=== PATIENT | female | born 1970 | race Caucasian/White ===

== ENCOUNTER 2017-09-18 22:15 | Observation (INO) | payer MEDICARE ==
[~2017-09-18] VITALS: Ht 175.3 cm; Wt 95.1 kg
[~2017-09-18 22:15] MED LIST: ACET325 PO; ALBU90OI INH; ALBUTEROL INH; Amlodipine Bes2.5 MG PO; Benicar5 MG PO; CIPR500 PO; CLON.5 PO; Hydrocodone-Ap1 EA23 PO; IRON PO; LEVFLO250 PO; LOSHYD PO; METPHE5 PO; MIDO2.5 PO; MULVIT PO; MULVITMIND PO; ONDA4 PO; Percocet 5-3251 EACH PO; Prinivil10 MG PO; SODBIC650 PO; TRAM50 PO; [UNRECOGNIZED DRUG - OTHER]
[2017-09-18 22:39] LABS: Source, Urine Clean Catch
[2017-09-18 22:42] LABS: Blood, Urine 4+ (Neg); Glucose Qualitative, Urine Neg (Neg); Ketones, Urine Neg (Neg); Leukocyte Esterase, Urine 3+ (Neg); Nitrite, Urine Pos (Neg); Protein, Urine 3+ (Neg); Specific Gravity, Urine 1.015 (1.003-1.022); Urobilinogen, Urine 1+ (Normal)
[2017-09-18 22:44] LABS: Bilirubin, Urine 1+ (Neg)
[2017-09-18 22:45] LABS: Appearance, Urine Turbid (Clear); Color, Urine Yellow (P-Yellow)
[2017-09-18 22:53] LABS: BASOPHILS PERCENT AUTO 1 % (0-2); EOSINOPHILS ABSOLUTE AUTO 0.03 K/mm3 (0.00-0.68); EOSINOPHILS PERCENT AUTO 0 % (0-6); Hematocrit 40.9 % (33.0-51.0); Hemoglobin 12.6 g/dL (11.5-16.0); IMMATURE GRAN ABSOLUTE AUTO 0.08 K/mm3 (0.00-0.10); IMMATURE GRAN PERCENT AUTO 1 % (0-1); LYMPHOCYTES PERCENT AUTO 8 % (21-46); MONOCYTES ABSOLUTE AUTO 0.33 K/mm3 (0.16-1.47); MONOCYTES PERCENT AUTO 4 % (4-13); Mean Corpuscular HGB 30.7 pg (26.0-34.0); Mean Corpuscular HGB Conc 30.8 g/dL (31.5-36.5); Mean Corpuscular Volume 100 fL (80-100); Mean Platelet Volume 9.2 fL (9.1-12.4); NEUTROPHILS PERCENT AUTO 86 % (41-73); Platelet Count 385 K/mm3 (150-400); RDW Coefficient Variation 14.9 % (11.7-14.2); RDW Standard Deviation 54.4 fL (35.1-46.3); Red Blood Cell Count 4.11 M/mm3 (3.80-5.20); White Blood Cell Count 9.04 K/mm3 (4.00-11.30)
[2017-09-18 22:57] LABS: Amorphous Mod (0-Heavy); Bacteria Many /hpf; Red Blood Cells, Urine Rare /hpf (0-2); Squamous Epithelial Cells Not Seen /hpf (Few); White Blood Cells, Urine TNTC /hpf (0-5)
[2017-09-18 23:16] LABS: Alanine Aminotransfer (ALT/SGP 14 U/L (12-78); Albumin, Blood 3.7 g/dL (3.4-5.0); Albumin/Globulin Ratio 0.7 (0.8-1.8); Alk Phos 66 U/L (50-136); Anion Gap 13 mmol/L (6-16); Aspartate Aminotrans (AST/SGOT <3 U/L (12-37); Bilirubin, Total 0.5 mg/dL (0.1-1.0); Blood Urea Nitrogen 118 mg/dL (8-24); Bun/Creatinine Ratio 17.6 (12.0-20.0); CO2, Blood 15 mmol/L (21-32); Calcium, Blood 10.3 mg/dL (8.5-10.1); Chloride, Blood 111 mmol/L (98-108); Creatinine, Blood 6.69 mg/dL (0.40-1.00); Globulin, Blood 5.2 g/dL (2.2-4.0); Glomerular Filtration Rate 7 (60-); Glucose, Blood 118 mg/dL (70-99); Potassium, Blood 5.8 mmol/L (3.5-5.5); Sodium, Blood 139 mmol/L (136-145); Total Protein, Blood 8.9 g/dL (6.4-8.2)
[2017-09-18 23:42] LABS: Influenza A Negative (NEGATIVE); Influenza B Negative (NEGATIVE)
[2017-09-19 12:32] LABS: BASOPHILS ABSOLUTE AUTO 0.07 K/mm3 (0.00-0.23); BASOPHILS PERCENT AUTO 1 % (0-2); EOSINOPHILS ABSOLUTE AUTO 0.04 K/mm3 (0.00-0.68); EOSINOPHILS PERCENT AUTO 1 % (0-6); Hematocrit 35.2 % (33.0-51.0); Hemoglobin 11.3 g/dL (11.5-16.0); IMMATURE GRAN ABSOLUTE AUTO 0.11 K/mm3 (0.00-0.10); IMMATURE GRAN PERCENT AUTO 1 % (0-1); LYMPHOCYTES ABSOLUTE AUTO 0.95 K/mm3 (0.84-5.20); LYMPHOCYTES PERCENT AUTO 13 % (21-46); MONOCYTES ABSOLUTE AUTO 0.64 K/mm3 (0.16-1.47); MONOCYTES PERCENT AUTO 8 % (4-13); Mean Corpuscular HGB 30.8 pg (26.0-34.0); Mean Corpuscular HGB Conc 32.1 g/dL (31.5-36.5); Mean Platelet Volume 8.9 fL (9.1-12.4); NEUTROPHILS PERCENT AUTO 76 % (41-73); Platelet Count 335 K/mm3 (150-400); RDW Coefficient Variation 14.7 % (11.7-14.2); RDW Standard Deviation 51.5 fL (35.1-46.3); Red Blood Cell Count 3.67 M/mm3 (3.80-5.20); White Blood Cell Count 7.61 K/mm3 (4.00-11.30)
[2017-09-19 12:35] LABS: Mean Corpuscular Volume 96 fL (80-100)
[2017-09-19 13:32] LABS: Albumin, Blood 3.3 g/dL (3.4-5.0); Albumin/Globulin Ratio 0.7 (0.8-1.8); Bilirubin, Total 0.8 mg/dL (0.1-1.0); Bun/Creatinine Ratio 16.1 (12.0-20.0); Creatinine, Blood 2.54 mg/dL (0.40-1.00); Globulin, Blood 4.7 g/dL (2.2-4.0)
[2017-09-19 14:09] LABS: Calcium, Blood 9.1 mg/dL (8.5-10.1); Potassium, Blood 3.5 mmol/L (3.5-5.5)
[2017-09-19] MEDS ORDERED: LEVFLO500 PO (16:02)
[2017-09-19] MEDS ORDERED: ACET325 PO (16:03)
[2017-09-20 06:41] LABS: HCV Non Reactive (NR)
== END 2017-09-19 16:25 | disposition home or self-care (01) ==
LOC: ER 22:15 → MEDS 22:16 → ER 09-19 01:09 → MEDS 09-19 01:09 → ENPENDDIS 09-19 14:42 → MEDS 09-19 16:25
PROVIDERS: Emergency Medicine; Internal Medicine; Internal Medicine Nephrology
DX: R11.2 Nausea with vomiting, unspecified (principal); N39.0 Urinary tract infection, site not specified; J45.909 Unspecified asthma, uncomplicated; I12.0 Hypertensive chronic kidney disease with stage 5 chronic kidney disease or end stage renal disease; N18.6 End stage renal disease; N13.30 Unspecified hydronephrosis; N82.1 Other female urinary-genital tract fistulae; D64.9 Anemia, unspecified; E21.3 Hyperparathyroidism, unspecified; E87.2 Acidosis; E86.0 Dehydration; E87.5 Hyperkalemia; Z79.899 Other long term (current) drug therapy; Z88.0 Allergy status to penicillin; Z88.2 Allergy status to sulfonamides; Z99.2 Dependence on renal dialysis; Z98.890 Other specified postprocedural states
CPT/HCPCS: 36415; 71046; 80053; 80074; 81001; 83690; 85025; 86706; 87077; 87086; 87147; 87186; 87804; 93005; 93010; 96361; 96365; 96375; 99285; G0257; G0378; J0610; J1650; J1956; J2405; J3010; J7030

== ENCOUNTER 2018-11-17 14:39 | Observation (INO) | payer MEDICARE ==
[~2018-11-17] VITALS: Ht 177.8 cm; Wt 53.8 kg
[~2018-11-17 14:39] MED LIST changes: +ALPR.5 PO; +LEVFLO500 PO; +Prinivil5 MG PO; +SODPOL15SA PO
[2018-11-17 16:45] LABS: Calcium, Ionized (POC) 1.12 mmol/L (1.10-1.46); Chloride (POC) 112 mmol/L (98-108); Creatinine (POC) 6.5 mg/dL (0.6-1.0); Glucose (ISTAT POC) 100 mg/dL (70-99); Hemoglobin (POC) 12.9 g/dL (12.0-16.0); Potassium (POC) 6.3 mmol/L (3.5-5.5); Sodium (POC) 137 mmol/L (135-148); Total CO2 (POC) 16 mmol/L (21-32)
[2018-11-17] MEDS ORDERED: OXYC5 PO (16:56)
[2018-11-17 17:00] LABS: Hematocrit 39.4 % (33.0-51.0); Hemoglobin 11.9 g/dL (11.5-16.0); Mean Corpuscular HGB 31.8 pg (26.0-34.0); Mean Corpuscular HGB Conc 30.2 g/dL (31.5-36.5); Mean Corpuscular Volume 105 fL (80-100); Mean Platelet Volume 8.8 fL (9.1-12.4); Platelet Count 298 K/mm3 (150-400); RDW Coefficient Variation 13.8 % (11.7-14.2); RDW Standard Deviation 53.1 fL (35.1-46.3); Red Blood Cell Count 3.74 M/mm3 (3.80-5.20); White Blood Cell Count 6.81 K/mm3 (4.00-11.30)
[2018-11-17 17:08] LABS: International Normalized Ratio 1.03; Prothrombin Time Results 10.9 Sec (9.7-11.5)
[2018-11-17 17:24] LABS: BAND PERCENT MAN 2 % (0-8); BASOPHILS PERCENT MAN 0 % (0-2); EOSINOPHILS ABSOLUTE MAN 0.34 K/mm3 (0.00-0.68); EOSINOPHILS PERCENT MAN 5 % (0-6); LYMPHOCYTES ABSOLUTE MAN 0.74 K/mm3 (0.84-5.20); LYMPHOCYTES PERCENT MAN 11 % (21-46); MONOCYTES PERCENT MAN 6 % (4-13); NEUTROPHILS ABSOLUTE MAN 5.31 K/mm3 (1.96-9.15); SEG NEUTROPHILS PERCENT MAN 76 % (41-73); TOTAL CELLS COUNTED 100
--- NOTE | 2018-11-17 17:38 | NUR ---
NAEL AV FISTULA ASSESED. AC AREA SHOWING MODERATE SWELLING AND ERYTHEMA. NO PALPABLE THRILL OR AUDIBLE BRUIT PRESENT. DR MICHELLE INFORMED OF FINDINGS.
[2018-11-17 18:21] LABS: Calcium, Blood 9.3 mg/dL (8.5-10.1); Creatinine, Blood 6.05 mg/dL (0.40-1.00); Potassium, Blood 6.2 mmol/L (3.5-5.5)
--- NOTE | 2018-11-17 18:54 | NUR ---
ADMIT NOTE 48 YEAR OLD FEMALE ADMIT TO ICU 5 TO HOSPITALIST SERVICE PER TINY VIA ER. TRANSFER TO BED MONITOR PLACED SHOWING SINUS RHYTHM HEART RATE 80'S. DENIES DISCOMFORT. LUNG SOUND CLEAR. RESPIRATIONS REGULAR AND EASY ON ROOM AIR. S[P2 98-100%. ABDOMEN SOFT STATES SHE SELF CATHS. AV FISTULA NOTED IN L FOREARM STATES IS OCCLUDED. DR BRUNNER AT BEDSIDE FOR DIALYSIS CATH PLACEMENT. PROCEDUREAL TIME OUT AND CATH PLACED. CONFIRMED BY CHEST XRAY. CONTINUE TO MONITOR AND REPORT CHANGE IN PATIENT CONDITION
--- NOTE | 2018-11-17 20:00 | NUR ---
DR MICHELLE NOTIFIED AND FURNACE BUILDER JOAN NOTIFIED, OF PENDING DIALYSIS TONIGHT, 2014 FURNACE BUILDER AT BEDSIDE. FAMILY AT BEDSIDE ATTENTIVE TO NEEDS AND CARES. COMPLETING ADMIT HX AND INFORMED RELASE OF INFORMATION. DR LAN, HOSPITALIST NOTIFIED. ORDERS NOTED. TOLERATES RENAL DIET WELL CONTINUE TO MONITOR AND REPORT HANGE IN PATIENT CONDITION
[2018-11-18 03:29] LABS: Hematocrit 36.7 % (33.0-51.0); Hemoglobin 11.7 g/dL (11.5-16.0)
[2018-11-18 03:48] LABS: Albumin, Blood 3.3 g/dL (3.4-5.0); Anion Gap 10 mmol/L (6-16); Blood Urea Nitrogen 84 mg/dL (8-24); Bun/Creatinine Ratio 19.1 (12.0-20.0); CO2, Blood 22 mmol/L (21-32); Calcium, Blood 9.4 mg/dL (8.5-10.1); Chloride, Blood 103 mmol/L (98-108); Glomerular Filtration Rate 11 (60-); Glucose, Blood 107 mg/dL (70-99); Magnesium, Blood 2.2 mg/dL (1.6-2.4); Phosphorus, Blood 4.1 mg/dL (2.5-4.9); Potassium, Blood 4.6 mmol/L (3.5-5.5); Sodium, Blood 135 mmol/L (136-145)
--- NOTE | 2018-11-18 08:00 | NUR ---
FEMALE PT UP AMB IN . CATHS HERSELF SEVERAL TIMES A DAY. CLOUDY YELLOW UA SPEC TPTHE LAB. LUNGS CLEAR AND ON RA. OTIS IN RIGHT JUGULAR.
[2018-11-18 12:08] LABS: Source, Urine Catheter
[2018-11-18 12:13] LABS: Bilirubin, Urine Neg (Neg); Blood, Urine 5+ (Neg); Glucose Qualitative, Urine Neg (Neg); Ketones, Urine Neg (Neg); Leukocyte Esterase, Urine 3+ (Neg); Nitrite, Urine Neg (Neg); Protein, Urine 3+ (Neg); Urobilinogen, Urine NORM (Normal)
[2018-11-18 12:23] LABS: Appearance, Urine Turbid (Clear); Color, Urine Yellow (P-Yellow)
[2018-11-18 12:24] LABS: Squamous Epithelial Cells Not Seen /hpf (Few); White Blood Cells, Urine TNTC /hpf (0-5)
[2018-11-18 12:25] LABS: Bacteria Many /hpf
--- NOTE | 2018-11-18 12:46 | NUR ---
PAT WENT TO DIALYSYS AND NOW BACK IN ROOM. TALKED WITH DR ANDREW ASKED ABOUT DISCHARGING THE PATIENT. DR MICHELLE ASKED ABOUT DISCHARGING AND DC QUENTEN CATH. APPOINTMENT MADE AT [facility] AT 0730 TOMORROW. ALSO NPO AFTER 2400. PAT LAYED IN [place] AND OTIS REMOVED. PRESSURE HELD 15 MIN.
--- NOTE | 2018-11-18 14:28 | NUR ---
PAT TAKEN BY WHEEL CHAIR AFTER YU DOYLE IV DCED TO A FRIENDS CAR TO GO HOME.
== END 2018-11-18 14:20 | disposition home or self-care (01) ==
LOC: ER 14:39 → ICUW 14:40 → ICUE 14:40
PROVIDERS: Emergency Medicine; Family Medicine; Internal Medicine Nephrology; ADMIT Hospitalist
DX: T82.868A Thrombosis due to vascular prosthetic devices, implants and grafts, initial encounter (principal); N18.6 End stage renal disease; D63.1 Anemia in chronic kidney disease; E87.5 Hyperkalemia; E86.9 Volume depletion, unspecified; E87.2 Acidosis; E87.1 Hypo-osmolality and hyponatremia; E88.09 Other disorders of plasma-protein metabolism, not elsewhere classified; Z79.899 Other long term (current) drug therapy; Z88.0 Allergy status to penicillin; Z88.2 Allergy status to sulfonamides; Z90.6 Acquired absence of other parts of urinary tract
CPT/HCPCS: 36415; 36556; 71045; 80047; 80048; 80069; 81001; 83735; 85014; 85018; 85025; 85610; 85730; 87077; 87086; 87186; 93005; 93010; 96374; 96376; 99285-25; C1752; G0257; G0378; J1815

== ENCOUNTER 2019-02-21 14:34 | Inpatient (IN) | payer MEDICARE ==
[~2019-02-21] VITALS: Ht 175.3 cm; Wt 57.6 kg
[~2019-02-21 14:34] MED LIST changes: +OXYC5 PO
[2019-02-21 15:24] LABS: Source, Urine Clean Catch
[2019-02-21 15:44] LABS: Appearance, Urine Turbid (Clear); Bilirubin, Urine Neg (Neg); Blood, Urine 5+ (Neg); Color, Urine Brown (P-Yellow); Glucose Qualitative, Urine Neg (Neg); Ketones, Urine Neg (Neg); Leukocyte Esterase, Urine 3+ (Neg); Nitrite, Urine Neg (Neg); Protein, Urine 3+ (Neg); Urobilinogen, Urine NORM (Normal)
[2019-02-21] MEDS ORDERED: Prinivil10 MG PO (15:48)
[2019-02-21] MEDS ORDERED: Pantoprazole So40 MG PO (15:48)
[2019-02-21 16:01] LABS: Bacteria Many /hpf; Squamous Epithelial Cells Rare /hpf (Few); White Blood Cells, Urine TNTC /hpf (0-5)
--- NOTE | 2019-02-21 22:27 | NUR ---
1923 PT ADMITTED TO 364 PER CART FROM ER. PT ORIENTED TO ROOM. FISHERIES OFFICER AT SIDE TO START TREATMENT AT BEDSIDE. 2100 THIS NURSE NOTED THAT THE FOLLOWING MEDICATIONS FROM ER WERE NEVER SIGNED OUT GIVEN: MAXIPIME 2000MG IVPB FOR 1615; PROTONIX 40MG PO 1704; MIRALAX 17GM PO 1703. THIS NURSE ADVISED CHARGE NURSE NONA MARIN RN AND PHARMACIST--BEAU. MAXIPIME 1000MG WILL BE HUNG BY THIS NURSE AFTER PATIENT HAS COMPLETED EVENING DIALYSIS. 0 PT SELF CATHS AT HOME UP FIVE TIME A DAY. DR NARVAEZ NOTIFIED WITH ORDERS FOR PATIENT TO PERFORM THIS TASK.
--- NOTE | 2019-02-22 04:54 | NUR ---
SHIFT SUMMARY: 48 Y/O FEMALE RESTED COMFORTABLY ALL SHIFT AFTER COMPLETING DIALYIS LAST NIGHT AT BEDSIDE (TOLERATED WELL). PT ABLE AMBULATE BATHROOM AND BACK X 1 STANDBY ASSIST WITH GAIT STEADY AND EVEN. PT C/O ABD DISCOMFORT WITH DILAUDID 0.5 MG GIVEN 0035 WITH RELIEF FELT. PT DENIES NAUSEA. PTS BED LOW POSITION, CALL LIGHT AT SIDE.
[2019-02-22 05:05] LABS: Albumin, Blood 3.4 g/dL (3.4-5.0); Anion Gap 9 mmol/L (6-16); Blood Urea Nitrogen 64 mg/dL (8-24); Bun/Creatinine Ratio 13.8 (12.0-20.0); CO2, Blood 28 mmol/L (21-32); Calcium, Blood 9.4 mg/dL (8.5-10.1); Chloride, Blood 98 mmol/L (98-108); Creatinine, Blood 4.65 mg/dL (0.40-1.00); Glomerular Filtration Rate 11 (60-); Glucose, Blood 80 mg/dL (70-99); Magnesium, Blood 2.1 mg/dL (1.6-2.4); Phosphorus, Blood 4.9 mg/dL (2.5-4.9); Potassium, Blood 4.3 mmol/L (3.5-5.5); Sodium, Blood 135 mmol/L (136-145)
[2019-02-22 05:08] LABS: BASOPHILS ABSOLUTE AUTO 0.09 K/mm3 (0.00-0.23); BASOPHILS PERCENT AUTO 1 % (0-2); EOSINOPHILS ABSOLUTE AUTO 0.18 K/mm3 (0.00-0.68); EOSINOPHILS PERCENT AUTO 2 % (0-6); Hematocrit 41.6 % (33.0-51.0); Hemoglobin 12.8 g/dL (11.5-16.0); IMMATURE GRAN PERCENT AUTO 2 % (0-1); LYMPHOCYTES ABSOLUTE AUTO 1.59 K/mm3 (0.84-5.20); LYMPHOCYTES PERCENT AUTO 14 % (21-46); MONOCYTES ABSOLUTE AUTO 0.54 K/mm3 (0.16-1.47); MONOCYTES PERCENT AUTO 5 % (4-13); Mean Corpuscular HGB 31.2 pg (26.0-34.0); Mean Corpuscular HGB Conc 30.8 g/dL (31.5-36.5); Mean Corpuscular Volume 102 fL (80-100); Mean Platelet Volume 9.3 fL (9.1-12.4); NEUTROPHILS ABSOLUTE AUTO 9.09 K/mm3 (1.96-9.15); NEUTROPHILS PERCENT AUTO 78 % (41-73); Platelet Count 187 K/mm3 (150-400); RDW Coefficient Variation 14.9 % (11.7-14.2); RDW Standard Deviation 55.4 fL (35.1-46.3); White Blood Cell Count 11.69 K/mm3 (4.00-11.30)
--- NOTE | 2019-02-22 05:50 | NUR ---
PT C/O NAUSEA WITH NO EMESIS; ZOFRAN 4MG IVP GIVEN WITH RELIEF; C/O ABD PAIN 6/10 WITH DILAUDID 0.5 MG IVP GIVEN WITH RELIEF FELT.
--- NOTE | 2019-02-22 11:55 | NUR ---
PT WITH TWO BP'S WITH SBP OF 90, LISINOPRIL HELD. PT C/O LORENZO NOT RELIEVED BY APAP. DR. MICHELLE NOTIFIED, RECIEVED ORDERS FOR MIDODRINE 2.5MG PO TID, HOLD FOR SBP GREATER THAN 130 AND HOLD PERAMETERS FOR LISONOPRIL.
--- NOTE | 2019-02-22 17:27 | NUR ---
SHIFT SUMMARY. A&OX4, INDEPENDENT IN ROOM. PT CONTINUES WITH H/A THROUGHOUT SHIFT, REPORTS SOME RELIEF BP HAS IMPROVED POST MIDODRINE ADMINISTRATION. NO N/V, SOB. PT TOLERATED CLEAR LIQUID DIET THIS AFTERNOON, PT WILL START RENAL DIET FOR DINNER.
--- NOTE | 2019-02-23 04:37 | NUR ---
SHIFT SUMMARY: PT RESTED COMFORTABLY ALL SHIFT. PT C/O ABD PAIN X 1 WITH DILAUDID 1MG IVP GIVEN WITH RELIEF VOICED. PT TOLERATING RENAL DIET AND CONTINUES TO TAKE KLINIMEX INFUSING AT 50ML/HR. PT DENIES NAUSEA. PT SCHEDULED FOR DIALYSIS TODAY. PT HAPPY AND COOPERATIVE. PT ABLE TO TRANSFER AND AMBULATE BATHROOM AND BACK PER SELF WITH GAIT SLOW AND STEADY. PTS BED LOW POSITION, CALL LIGHT AT SIDE.
[2019-02-23 04:46] LABS: Hematocrit 33.2 % (33.0-51.0); Hemoglobin 10.1 g/dL (11.5-16.0)
[2019-02-23 05:07] LABS: Albumin, Blood 2.8 g/dL (3.4-5.0); Anion Gap 12 mmol/L (6-16); Blood Urea Nitrogen 97 mg/dL (8-24); Bun/Creatinine Ratio 15.1 (12.0-20.0); CO2, Blood 20 mmol/L (21-32); Calcium, Blood 8.8 mg/dL (8.5-10.1); Chloride, Blood 100 mmol/L (98-108); Creatinine, Blood 6.41 mg/dL (0.40-1.00); Glomerular Filtration Rate 7 (60-); Glucose, Blood 94 mg/dL (70-99); Magnesium, Blood 2.1 mg/dL (1.6-2.4); Potassium, Blood 4.9 mmol/L (3.5-5.5); Sodium, Blood 132 mmol/L (136-145)
[2019-02-23 05:46] LABS: Phosphorus, Blood 8.1 mg/dL (2.5-4.9)
[2019-02-23] MEDS ORDERED: LEVOFLOXACIN250 MG PO (11:30)
--- NOTE | 2019-02-23 12:49 | NUR ---
1245 PT DISHCARGED HOME VIA PERSONAL VEHICLE ACCOMPANIED AND DRIVEN BY SISTER. PT REQUESTED TO SELF AMBULATE TO FACILITY ENTRANCE. IV REMOVED. D/C INSTRUCTIONS REVIEWED WITH PT AND COPY PROVIDED. NO NEW CHANGES OR CONCERNS.
[2019-06-17] MEDS ORDERED: Ultram50 MG PO (08:57)
[2019-06-17] MEDS ORDERED: FERRIC CITRATE210 MG PO (08:57)
[2019-06-17] MEDS ORDERED: Neurontin 100100 MG PO (08:58)
[2019-06-17] MEDS ORDERED: SODBIC650 PO (08:58)
[2019-06-17] MEDS ORDERED: LOKELMA10 GM PO (08:59)
== END 2019-02-23 12:47 | disposition home or self-care (01) | DRG 689 ==
LOC: ER 14:34 → MEDS 16:52 → ENPENDDIS 02-23 10:49 → MEDS 02-23 12:47
PROVIDERS: Internal Medicine Nephrology; Physician Assistant; ADMIT Internal Medicine
PROC: 5A1D70Z Performance of Urinary Filtration, Intermittent, Less than 6 Hours Per Day (ICD-10-PCS; principal; 2019-02-22)
DX: N10 Acute pyelonephritis (principal); K85.90 Acute pancreatitis without necrosis or infection, unspecified; I12.0 Hypertensive chronic kidney disease with stage 5 chronic kidney disease or end stage renal disease; N18.6 End stage renal disease; Z99.2 Dependence on renal dialysis; E87.5 Hyperkalemia; B96.20 Unspecified Escherichia coli [E. coli] as the cause of diseases classified elsewhere
CPT/HCPCS: 36415; 74176; 80053; 80069; 81001; 82150; 82947; 83690; 83735; 85014; 85018; 85025; 87077; 87086; 87186; 93005; 93010; 96365; 96375; 96376; 99285-25; A9270; J0610; J0692; J1170; J1644; J1815; J1956; J2405; J2550; J7050; J7131

== ENCOUNTER 2020-02-10 12:44 | Day surgery (SDC) | payer MEDICARE ==
[~2020-02-10] VITALS: Ht 175.3 cm; Wt 60.5 kg
[~2020-02-10 12:44] MED LIST changes: +AURYXIA PO; +CINA30 PO; +FERRIC CITRATE210 MG PO; +LEVOFLOXACIN250 MG PO; +LOKELMA10 GM PO; +MEGE40T PO; +Neurontin 100100 MG PO; +Pantoprazole So40 MG PO; +Rena-Vite Tabl0.8 MG PO; +THERA1 EACH PO; +Ultram50 MG PO; +VELPHORO500 MG PO; +ZOLOFT50 MG PO
[2020-02-10] MEDS ORDERED: OXYC5 PO (13:20)
--- NOTE | 2020-02-10 15:00 | NUR ---
PT TO RECOVERY ROOM POST PROCEDURE. PT ALERT AND ORIENTED, COOPERATVIE; DENIES PAIN POST PROCEDURE. MONITOR SR 70'S, B/P 129/80, AFEBRILE, SPO2 98% RA. L ARM FISTULA NO SWELLING/HEMATOMA, CLOTH DOT IN PLACE X 2 INTACT (PURSE STRING SUTURES), POSITIVE THRILL TO FISTULA.
--- NOTE | 2020-02-10 16:35 | NUR ---
L FISTULA SITES REMAIN UNCHANGED, NO SWELLING/HEMATOMA TO SITES, CLOTH DOTS INTACT X 2 WITHOUT VISIBLE DRAINAGE. PT DRESSED SELF WITHOUT ISSUE, SITES UNCHANGED-IV REMOVED CANNULA INTACT.
--- NOTE | 2020-02-10 16:40 | NUR ---
PT AND SISTER RECEIVED DISCHARGE INSTRUCTIONS, MED LIST AND AFTER CARE INSTRUCTIONS; VERBALIZED GOOD UNDERSTANDING. PT LEFT FACILITY VIA W/C, CONDITION STABLE.
== END 2020-02-10 16:40 | disposition home or self-care (01) ==
LOC: MHTC 12:44
DX: Z45.2 Encounter for adjustment and management of vascular access device (principal); I12.0 Hypertensive chronic kidney disease with stage 5 chronic kidney disease or end stage renal disease; N18.6 End stage renal disease; J45.909 Unspecified asthma, uncomplicated; K21.9 Gastro-esophageal reflux disease without esophagitis; F41.9 Anxiety disorder, unspecified; E78.5 Hyperlipidemia, unspecified; Z88.2 Allergy status to sulfonamides; Z88.0 Allergy status to penicillin; Z88.8 Allergy status to other drugs, medicaments and biological substances; Z79.899 Other long term (current) drug therapy; Z99.2 Dependence on renal dialysis
CPT/HCPCS: 36902; 84132; 99152; 99153; C1725; C1769; C1887; C1894; J1644; J2250; J3010; J7030; Q9967

== ENCOUNTER 2020-07-30 10:33 | Inpatient (IN) | payer MEDICARE ==
[~2020-07-30] VITALS: Ht 175.3 cm; Wt 62.4 kg
[~2020-07-30 10:33] MED LIST changes: -ALPR.5 PO; +Daily Multiple1 EACH PO; +PRINIVIL10 MG PO; +PROM25 PO; -THERA1 EACH PO; -Ultram50 MG PO; -ZOLOFT50 MG PO
[2020-07-30 11:00] LABS: Calcium, Ionized (POC) 1.35 mmol/L (1.10-1.46); Chloride (POC) 116 mmol/L (98-108); Creatinine (POC) 8.8 mg/dL (0.6-1.0); Glucose (ISTAT POC) 121 mg/dL (70-99); Hemoglobin (POC) 11.2 g/dL (12.0-16.0); Potassium (POC) 6.3 mmol/L (3.5-5.5); Sodium (POC) 138 mmol/L (135-148); Total CO2 (POC) 13 mmol/L (21-32)
[2020-07-30 11:09] LABS: BASOPHILS ABSOLUTE AUTO 0.04 K/mm3 (0.00-0.23); BASOPHILS PERCENT AUTO 1 % (0-2); EOSINOPHILS PERCENT AUTO 2 % (0-6); Hematocrit 33.2 % (33.0-51.0); Hemoglobin 9.9 g/dL (11.5-16.0); IMMATURE GRAN ABSOLUTE AUTO 0.01 K/mm3 (0.00-0.10); IMMATURE GRAN PERCENT AUTO 0 % (0-1); LYMPHOCYTES ABSOLUTE AUTO 0.56 K/mm3 (0.84-5.20); LYMPHOCYTES PERCENT AUTO 9 % (21-46); MONOCYTES ABSOLUTE AUTO 0.44 K/mm3 (0.16-1.47); MONOCYTES PERCENT AUTO 7 % (4-13); Mean Corpuscular HGB Conc 29.8 g/dL (31.5-36.5); Mean Corpuscular Volume 104 fL (80-100); Mean Platelet Volume 9.7 fL (9.1-12.4); NEUTROPHILS ABSOLUTE AUTO 4.79 K/mm3 (1.96-9.15); NEUTROPHILS PERCENT AUTO 81 % (41-73); Platelet Count 250 K/mm3 (150-400); RDW Coefficient Variation 14.7 % (11.7-14.2); RDW Standard Deviation 57.3 fL (35.1-46.3); Red Blood Cell Count 3.19 M/mm3 (3.80-5.20); White Blood Cell Count 5.94 K/mm3 (4.00-11.30)
[2020-07-30 11:48] LABS: Albumin, Blood 3.7 g/dL (3.4-5.0); Albumin/Globulin Ratio 0.8 (0.8-1.8); Bilirubin, Total 0.5 mg/dL (0.1-1.0); Bun/Creatinine Ratio 24.7 (12.0-20.0); Calcium, Blood 9.9 mg/dL (8.5-10.1); Creatinine, Blood 7.69 mg/dL (0.40-1.00); Globulin, Blood 4.8 g/dL (2.2-4.0); Potassium, Blood 6.2 mmol/L (3.5-5.5); Total Protein, Blood 8.5 g/dL (6.4-8.2)
[2020-07-30 12:44] LABS: Source, Urine Catheter
[2020-07-30 13:09] LABS: Color, Urine Pale Yellow (P-Yellow)
[2020-07-30 13:19] LABS: Appearance, Urine Turbid (Clear)
[2020-07-30 13:20] LABS: Bacteria Many /hpf; Mucus Heavy (0-Heavy); Squamous Epithelial Cells Not Seen /hpf (Few)
[2020-07-30] MEDS ORDERED: ALPR.5 PO (13:33)
[2020-07-30] MEDS ORDERED: SERT100 PO (13:33)
[2020-07-30] MEDS ORDERED: GABA100 PO (13:34)
[2020-07-30] MEDS ORDERED: Ultram50 MG PO (13:34)
[2020-07-30 14:36] LABS: Influenza A, PCR Negative (NEGATIVE); Influenza B, PCR Negative (NEGATIVE); Resp Syncytial Virus, PCR Negative (NEGATIVE); SARS-Cov-2 (COVID-19) PCR, MMC Negative (NEGATIVE)
--- NOTE | 2020-07-30 17:30 | NUR ---
PATIENT TO BE ADMITTED TO ICU FROM ER WITH HYPERKALEMIA AND HYPOGLYCEMIA. ORDER FOR HEMODIALYSIS RECIEVED FROM DR MICHELLE AND ENTERED AT 1530. PATIENT DELAYED IN ER DUE TO RECURRENT BG DROPS AND REQUIRED INTERVENTIONS. PATIENT TRANSFERED TO ICU 2 AT 1730 BUT DIALYSIS DELAYED DUE TO URGENT NEED FOR PIC LINE PLACEMENT FOR D10 ADMINISTRATION.
--- NOTE | 2020-07-30 17:45 | NUR ---
ASSUMPTION OF CARE PATIENT ARRIVED FROM ER AT 1720. PATIENT LETHARGIC BUT ALERT AND ORIENTED. AFEBRILE. NO COMPLAINTS OF PAIN. PATIENT SLOW TO RESPOND. WHILE DOING ADMISSION HISTORY PATIENT STATES SHE HAS "HAD WEIRD DOUBLE VISION LATELY". PATIENT WEAK BUT ABLE TO MOVE ALL EXTREMITIES. PATIENT SATTING 90% AND GREATER ON RA. LUNGS CLEAR. PATIENT IN SR, HR IN THE 60S. SBP IN THE 120S. ABD SOFT, NONDISTENDED, WITH HYPERACTIVE BS NOTED. PATIENT HAD LOOSE STOOL JUST PRIOR TO COMING TO ICU. PATIENT ON RENAL DIET. PATIENT HAS NEOBLADDER AND STATES SHE SELF CATHS HERSELF AROUND 5X PER DAY AT HOME. FISTULA TO L ARM. D10 AT 100 MLS/ HOUR. 1 AMP OF D50 GIVEN FOR BLOOD SUGAR OF 66. SPOKE TO DR. ESCALANTE 3 TIMES IN REGARDS TO PATIENT'S BLOOD SUGARS AND D10 DRIP. DIALYSIS NURSE IN ROOM RIGHT NOW WITH PATIENT. BED LOW, CALL LIGHT IN REACH.
--- NOTE | 2020-07-30 19:04 | NUR ---
SHIFT SUMMARY PATIENT CONTINUES TO RECEIVE DIALYSIS. PATIENT REMAINS ALERT AND ORIENTED, AFEBRILE. PATIENT REMAINS SATTING 90% AND GREATER ON RA. PATIENT HAS REMAINED IN SR, HR 60S TO 90S. SBP 120S TO 150S. PATIENT HAS BEEN GIVEN 1 AMP D50 AND D10 DRIP INFUSING AT 200 MLS/ HOUR. BLOOD SUGARS BEING CHECKED FREQUENTLY. PICC PLACED. REPORT HAS BEEN GIVEN TO ASSUMING METAL ROLLING MILL OPERATOR NURSE.
[2020-07-30 20:55] LABS: Source, Urine Catheter
[2020-07-30 20:57] LABS: Bilirubin, Urine Neg (Neg); Blood, Urine 5+ (Neg); Glucose Qualitative, Urine Neg (Neg); Ketones, Urine Neg (Neg); Leukocyte Esterase, Urine 3+ (Neg); Nitrite, Urine Pos (Neg); Protein, Urine 3+ (Neg); Urobilinogen, Urine NORM (Normal)
[2020-07-30 21:00] LABS: Appearance, Urine Turbid (Clear); Color, Urine Yellow (P-Yellow)
[2020-07-30 21:04] LABS: Amorphous Heavy (0-Heavy); Bacteria Many /hpf; Squamous Epithelial Cells Few /hpf (Few); White Blood Cells, Urine TNTC /hpf (0-5)
--- NOTE | 2020-07-30 21:30 | NUR ---
CALLED REGARDING BP, NO NEW ORDERS. UPDATED HIM ON PT'S URINE, SEDIMENT, DARK, AND INSERTION OF ROSENBAUM. INSTRUCTIONS TO D/C ROSENBAUM IN THE AM.
--- NOTE | 2020-07-30 23:41 | NUR ---
CALLED REGARDING BP OF 180/60'S. ORDERS TO START 50MG LOSARTAN BID AND CLONIDINE BID.
--- NOTE | 2020-07-31 02:48 | NUR ---
UPDATE: PT CONTINUES TO HAVE LOOSE/WATERY BOWEL MOVEMENTS. ORDERS GIVEN BY TO SEND FOR C-DIFF SAMPLE, AND PLACE RECTAL TUBE TO PREVENT SKIN BREAKDOWN. INFORMED OF CURRENT CBG TREATMENTSMM, ORDERS TO CONTINUE TO TITRATE D10 UNTIL BLOOD SUGARS ARE STABLE.
[2020-07-31 04:16] LABS: Hematocrit 26.1 % (33.0-51.0); Hemoglobin 8.1 g/dL (11.5-16.0); Mean Corpuscular HGB 30.2 pg (26.0-34.0); Mean Platelet Volume 9.8 fL (9.1-12.4); Platelet Count 149 K/mm3 (150-400); RDW Coefficient Variation 14.5 % (11.7-14.2); RDW Standard Deviation 51.4 fL (35.1-46.3); Red Blood Cell Count 2.68 M/mm3 (3.80-5.20); White Blood Cell Count 3.65 K/mm3 (4.00-11.30)
[2020-07-31 04:38] LABS: Magnesium, Blood 1.6 mg/dL (1.6-2.4)
[2020-07-31 04:41] LABS: Mean Corpuscular Volume 97 fL (80-100)
[2020-07-31 04:42] LABS: Albumin, Blood 2.7 g/dL (3.4-5.0); Anion Gap 10 mmol/L (6-16); Blood Urea Nitrogen 106 mg/dL (8-24); Bun/Creatinine Ratio 21.3 (12.0-20.0); CO2, Blood 25 mmol/L (21-32); Calcium, Blood 8.3 mg/dL (8.5-10.1); Chloride, Blood 108 mmol/L (98-108); Creatinine, Blood 4.97 mg/dL (0.40-1.00); Glomerular Filtration Rate 10 (60-); Glucose, Blood 152 mg/dL (70-99); Phosphorus, Blood 5.7 mg/dL (2.5-4.9); Sodium, Blood 143 mmol/L (136-145)
[2020-07-31 04:43] LABS: Potassium, Blood 3.2 mmol/L (3.5-5.5)
--- NOTE | 2020-07-31 06:22 | NUR ---
SHIFT SUMMARY: PT IS DROWSY, HOWEVER EASILY AROUSED, ABLE TO FOLLOW DIRECTIONS. PT STS " THE WHOLE NIGHT IS A BLUR, CANNOT REMEMBER YOU PLACING THE ROSENBAUM" PT HAS DENIED PAIN, NAUSEA, DURING SHIFT. PT HAS BEEN IN NSR WITH HR IN THE 90'S. PT SBP IN [id number]'S AFTER BP MEDS GIVEN. RECTAL TUBE IN PLACE DRAINING TO GRAVITY, BROWN LIQUID STOOL. ROSENBAUM PATENT DRAINING TEA COLORED URINE. PT CONTINUES TO BE ON D10 DRIP FOR BLOOD SUGARS BETWEEN 150-200. WILL CONTINUE TO MONITOR PT UNTIL REPORT IS GIVEN TO ONCOMING SHIFT.
--- NOTE | 2020-07-31 08:05 | NUR ---
INITIAL ASSESSMENT PATIENT ALERT AND ORIENTED X 4, AFEBRILE. NO COMPLAINTS OF PAIN. PATIENT WEAK BUT ABLE TO MOVE ALL EXTREMITIES AND REPOSITIONG HIPS IN BED. PATIENT SATTING 90% AND GREATER ON RA. LUNGS CLEAR IN UPPER LOBES AND DIMINISHED IN LOWER LOBES. PATIENT STATES SHE HAS NONPRODUCTIVE COUGH BUT FEELS LIKE SHE DOES HAVE PHLEGM, BUT THAT SHE IS JUST UNABLE TO COUGH IT UP. PATIENT IN SR WITH OCCASIONAL PVCS. HR 80S TO 90S. SBP 140S TO 170S. HYPERACTIVE BS NOTED. PATIENT HAVING DIARRHEA; RECTAL TUBE IN PLACE. PATIENT HAS NEOBLADDER AND USUALLY CATHS SELF 5X PER DAY AT HOME. INDWELLING ROSENBAUM INSERTED ON CAR REPAIR SUPERVISOR FOR RETENTION. PATIENT HAS UTI. URINE LEA IN COLOR AND FOUL-SMELLING. FISTULA NOTED TO L ARM- + BRUIT AND THRILL NOTED. SKIN DRY. SCATTERED BRUISING NOTED. D10 INFUSING AT 100 MLS/ HOUR, NS TKO. LAST BLOOD SUGAR 130; GOAL RATE [address] ESCALANTE. NS TKO. PATIENT RECEIVED 10 MEQ KCL THIS AM FOR POTASSIUM OF 3.2. BED LOW, CALL LIGHT IN REACH. PATIENT CONTENT AT THIS TIME. WILL CONTINUE TO MONITOR PATIENT FREQUENTLY THROUGHOUT SHIFT.
--- NOTE | 2020-07-31 08:14 | NUR ---
DR. ESCALANTE IN ROOM TO SEE PATIENT. UPDATED ON PATIENT STATUS. INFORMED THAT BLOOD SUGARS REMAIN BELOW 150 DESPITE D10 DRIP INFUSING AT 100 MLS/ HOUR. DOCTOR INFORMED THAT PATIENT HAVING DIARRHEA AND THAT RECTAL TUBE PLACE ON DOCUMENT MANAGEMENT TECHNICIAN. DOCTOR INFORMED PATIENT HAD 900 MLS OUT DURING DIALYSIS LAST NIGHT. DOCTOR INFORMED THAT POTASSIUM 3.2 THIS AM AND THAT 10 MEQ KCL GIVEN.
--- NOTE | 2020-07-31 12:00 | NUR ---
PATIENT RESTING QUIETLY IN BED, EATING LUNCH AND WATCHING TV. PATIENT HAS NO COMPLAINTS. PATIENT AFEBRILE. HR IN THE 80S. SBP 1-TEENS TO 130S. D10 DRIP DECREASED SHORT TIME AGO TO 50 MLS/ HOUR IN HOPES THAT PROVIDING PATIENT WITH LESS SUGAR WILL RESULT IN HER BODY PRODUCING LESS INSULIN IN RESPONSE TO THAT INCREASE IN SUGAR, PATIENT IS NOT DIABETIC. NO OTHER ACUTE CHANGES TO NOTE ON AT THIS TIME. WILL CONTINUE TO MONITOR.
--- NOTE | 2020-07-31 16:00 | NUR ---
PATIENT RESTING QUIETLY IN BED. NO COMPLAINTS. PATIENT AFEBRILE. HR 80S TO 90S. SBP 140S TO 170S. BLOOD SUGAR 99; PATIENT REMAINS OFF D10 DRIP. NO OTHER ACUTE CHANGES TO NOTE ON AT THIS TIME. WILL CONTINUE TO MONITOR.
--- NOTE | 2020-07-31 17:43 | NUR ---
DR. ESCALANTE CALLED AND UPDATED ON PATIENT STATUS. DOCTOR INFORMED THAT PATIENT HAS BEEN OFF OF D10 SINCE 1300 AND THAT BLOOD SUGARS HAVE BEEN MAINTAINING. ORDERS RECEIVED.
--- NOTE | 2020-07-31 18:25 | NUR ---
SHIFT SUMMARY PATIENT REMAINED ALERT AND ORIENTED X 4, AFEBRILE. PATIENT HAD NO COMPLAINTS OF PAIN. LUNGS REMAINED CLEAR. PATIENT REMAINED SATTING 90% AND GREATER ON RA. PATIENT DID CONTINUE TO HAVE NONPRODUCTIVE COUGH. PATIENT REMAINED IN SR WITH OCCASIONAL PVCS. HR 80S TO 90S. SBP LOW 100S TO 170S. PATIENT HAD POOR APPETITE BUT TRIED. RECTAL TUBE REMOVED AT END OF SHIFT FOR LOW OUTPUT AND PATIENT REQUEST. ROSENBAUM REMAINS IN PLACE, DRAINING ADEQUATE AMOUNT OF LEA COLORED, FOUL-SMELLING URINE. NO CHANGE TO SKIN. PATIENT HAS BEEN REPOSITIONING OWN HIPS IN BED. PATIENT 1 PERSON ASSIST TO TOILET. PATIENT RECEIVED 10 MEQ KCL FOR POTASSIUM OF 3.2 THIS AM. D10 DC'D THIS SHIFT AFTER BLOOD SUGARS STABLE FOR SEVERAL HOURS. BLOOD SUGARS NOW Q2 INSTEAD OF Q1. PATIENT HAS BEEN CHANGED TO PCU STATUS. REPORT HAS BEEN GIVEN TO PCU 05 NURSE.
--- NOTE | 2020-07-31 18:40 | NUR ---
PATIENT SUCCESSFULLY TRANSFERRED TO PCU ROOM 05.
[2020-08-01 04:12] LABS: Hematocrit 24.8 % (33.0-51.0); Hemoglobin 7.7 g/dL (11.5-16.0)
[2020-08-01 04:30] LABS: Albumin, Blood 2.6 g/dL (3.4-5.0); Anion Gap 10 mmol/L (6-16); Blood Urea Nitrogen 115 mg/dL (8-24); Bun/Creatinine Ratio 19.2 (12.0-20.0); CO2, Blood 22 mmol/L (21-32); Calcium, Blood 8.2 mg/dL (8.5-10.1); Chloride, Blood 109 mmol/L (98-108); Creatinine, Blood 5.99 mg/dL (0.40-1.00); Glomerular Filtration Rate 8 (60-); Glucose, Blood 99 mg/dL (70-99); Magnesium, Blood 1.7 mg/dL (1.6-2.4); Phosphorus, Blood 7.5 mg/dL (2.5-4.9); Potassium, Blood 3.7 mmol/L (3.5-5.5); Sodium, Blood 141 mmol/L (136-145)
--- NOTE | 2020-08-01 06:26 | NUR ---
SHIFT SUMMARY PT WAS PLEASENT AND COOPERATIVE WITH CARE, ALERT AND ORIENTED. BLOOD GLUCOSE WAS STABLE 185-94 FOR PAST 24HR, Q2H BG CHECKS CHANGED TO ACHS. ON ROOM AIR WITH SATS IN THE HIGH 90'S. BP 136/82 AT START OF SHIFT DOWN TO 118/83 BY END OF SHIFT. HR 85 DOWN TO 53 BY AM. PT DENIED ANY PAIN OR SOB. HGB 7.7 AT MORNING LABS. PT SCHEDULED FOR DIALYSIS TODAY. PT HAD AN OTHERWISE UNEVENTFUL EVENING. WILL CONTINUE TO MONITOR UNTIL SHIFT CHANGE.
[2020-08-01] MEDS ORDERED: LOSA50 PO (10:43)
[2020-08-01] MEDS ORDERED: CLON.1 PO (10:43)
--- NOTE | 2020-08-01 10:56 | NUR ---
ASSUMED CARE OF PT THIS AM UPON RECEIVING REPORT FROM FELISHA MARION. PT ALERT AND ORIENTED, ON ROOM AIR, VSS. PT TO DIALYSIS AT 0900, CONTINUES IN DIALYSIS AT THIS TIME. PT PENDING DC UPON COMPLETION OF DIALYSIS.
[2020-08-01] MEDS ORDERED: DOXY100 PO (12:19)
== END 2020-08-01 12:58 | disposition home or self-care (01) | DRG 640 ==
LOC: ER 10:33 → PCU 13:45 → ERHOLD 13:45 → ICUE 13:45 → PCU 07-31 18:06
PROVIDERS: Emergency Medicine; Internal Medicine Nephrology; ADMIT Internal Medicine
PROC: 02HV33Z Insertion of Infusion Device into Superior Vena Cava, Percutaneous Approach (ICD-10-PCS; principal; 2020-07-30)
PROC: B548ZZA Ultrasonography of Superior Vena Cava, Guidance (ICD-10-PCS; 2020-07-30)
PROC: 5A1D70Z Performance of Urinary Filtration, Intermittent, Less than 6 Hours Per Day (ICD-10-PCS; 2020-07-30)
PROC: 5A1D70Z Performance of Urinary Filtration, Intermittent, Less than 6 Hours Per Day (ICD-10-PCS; 2020-08-01)
DX: E87.5 Hyperkalemia (principal); N18.6 End stage renal disease; G92 Toxic encephalopathy; I12.0 Hypertensive chronic kidney disease with stage 5 chronic kidney disease or end stage renal disease; N25.81 Secondary hyperparathyroidism of renal origin; E44.0 Moderate protein-calorie malnutrition; Z68.1 Body mass index [BMI] 19.9 or less, adult; E87.2 Acidosis; D63.1 Anemia in chronic kidney disease; E11.22 Type 2 diabetes mellitus with diabetic chronic kidney disease; E87.6 Hypokalemia; G89.4 Chronic pain syndrome; K21.9 Gastro-esophageal reflux disease without esophagitis; F41.9 Anxiety disorder, unspecified; Z99.2 Dependence on renal dialysis; Z88.0 Allergy status to penicillin; Z88.2 Allergy status to sulfonamides; T38.3X5A Adverse effect of insulin and oral hypoglycemic [antidiabetic] drugs, initial encounter; Y92.230 Patient room in hospital as the place of occurrence of the external cause; E87.70 Fluid overload, unspecified; E86.9 Volume depletion, unspecified
CPT/HCPCS: 0241U; 36415; 36569; 51702; 71045; 80047; 80053; 80069; 81001; 82947; 83605; 83735; 84132; 85014; 85018; 85025; 85027; 87040; 87077; 87086; 87186; 87493; 93005; 93010; 96365-59; 96375-59; 99285-25; A9270-GY; C1751; J0696; J0881; J1644; J1815; J3480; J7042; J7050

== ENCOUNTER 2020-12-28 21:01 | Observation (INO) | payer MEDICARE, OTHER ==
[~2020-12-28] VITALS: Ht 154.9 cm; Wt 56.5 kg
[~2020-12-28 21:01] MED LIST changes: +ALPR.5 PO; +CLON.1 PO; +DOXY100 PO; +GABA100 PO; +LOSA50 PO; +SERT100 PO; +Ultram50 MG PO
[2020-12-28 21:39] LABS: BASOPHILS ABSOLUTE AUTO 0.04 K/mm3 (0.00-0.23); BASOPHILS PERCENT AUTO 1 % (0-2); EOSINOPHILS ABSOLUTE AUTO 0.06 K/mm3 (0.00-0.68); EOSINOPHILS PERCENT AUTO 1 % (0-6); Hematocrit 30.8 % (33.0-51.0); Hemoglobin 9.1 g/dL (11.5-16.0); IMMATURE GRAN ABSOLUTE AUTO 0.05 K/mm3 (0.00-0.10); IMMATURE GRAN PERCENT AUTO 1 % (0-1); LYMPHOCYTES ABSOLUTE AUTO 0.38 K/mm3 (0.84-5.20); LYMPHOCYTES PERCENT AUTO 5 % (21-46); MONOCYTES ABSOLUTE AUTO 0.23 K/mm3 (0.16-1.47); MONOCYTES PERCENT AUTO 3 % (4-13); Mean Corpuscular HGB 31.4 pg (26.0-34.0); Mean Corpuscular HGB Conc 29.5 g/dL (31.5-36.5); Mean Corpuscular Volume 106 fL (80-100); Mean Platelet Volume 9.1 fL (9.1-12.4); NEUTROPHILS ABSOLUTE AUTO 6.27 K/mm3 (1.96-9.15); NEUTROPHILS PERCENT AUTO 89 % (41-73); Platelet Count 255 K/mm3 (150-400); RDW Standard Deviation 54.5 fL (35.1-46.3); White Blood Cell Count 7.03 K/mm3 (4.00-11.30)
[2020-12-28 22:02] LABS: Alanine Aminotransfer (ALT/SGP 16 U/L (12-78); Albumin, Blood 3.5 g/dL (3.4-5.0); Albumin/Globulin Ratio 0.6 (0.8-1.8); Alk Phos 81 U/L (50-136); Anion Gap 7 mmol/L (6-16); Aspartate Aminotrans (AST/SGOT <3 U/L (12-37); Bilirubin, Total 0.4 mg/dL (0.1-1.0); Blood Urea Nitrogen 94 mg/dL (8-24); Bun/Creatinine Ratio 11.6 (12.0-20.0); CO2, Blood 19 mmol/L (21-32); Calcium, Blood 10.1 mg/dL (8.5-10.1); Chloride, Blood 112 mmol/L (98-108); Creatinine, Blood 8.08 mg/dL (0.40-1.00); Globulin, Blood 5.4 g/dL (2.2-4.0); Glomerular Filtration Rate 6 (60-); Glucose, Blood 135 mg/dL (70-99); Potassium, Blood 6.6 mmol/L (3.5-5.5); Sodium, Blood 138 mmol/L (136-145); Total Protein, Blood 8.9 g/dL (6.4-8.2)
[2020-12-28 22:34] LABS: Magnesium, Blood 2.5 mg/dL (1.6-2.4)
--- NOTE | 2020-12-29 02:00 | NUR ---
REPORT RECEIVED FROM JACOB MONTENEGRO RN. PT TRANSPORTED TO MEDICAL FLOOR VIA GURNEY, AMBULATED SELF TO BED. NO ACUTE DISTRESS NOTED. VS TAKEN,WNL. PT'S SISTER AT THE BEDSIDE. ORIENTED TO ROOM/UNIT. INFORMED SISTER OF VISITING HOURS, INDICATED UNDERSTANDING. NO FURTHER QUESTIONS/CONCERNS VOICED AT THIS TIME. PT DENIES NEEDS. CALL LIGHT, POSSESSIONS IN REACH, BED IN LOW POSITION WITH ALARMS ON.
[2020-12-29 06:04] LABS: BASOPHILS ABSOLUTE AUTO 0.03 K/mm3 (0.00-0.23); BASOPHILS PERCENT AUTO 0 % (0-2); EOSINOPHILS PERCENT AUTO 0 % (0-6); Hematocrit 33.5 % (33.0-51.0); Hemoglobin 9.7 g/dL (11.5-16.0); IMMATURE GRAN ABSOLUTE AUTO 0.04 K/mm3 (0.00-0.10); IMMATURE GRAN PERCENT AUTO 1 % (0-1); LYMPHOCYTES ABSOLUTE AUTO 0.37 K/mm3 (0.84-5.20); LYMPHOCYTES PERCENT AUTO 5 % (21-46); MONOCYTES ABSOLUTE AUTO 0.31 K/mm3 (0.16-1.47); MONOCYTES PERCENT AUTO 4 % (4-13); Mean Corpuscular HGB 30.7 pg (26.0-34.0); Mean Corpuscular Volume 106 fL (80-100); NEUTROPHILS ABSOLUTE AUTO 6.59 K/mm3 (1.96-9.15); NEUTROPHILS PERCENT AUTO 90 % (41-73); Platelet Count 236 K/mm3 (150-400); RDW Standard Deviation 54.1 fL (35.1-46.3); Red Blood Cell Count 3.16 M/mm3 (3.80-5.20); White Blood Cell Count 7.34 K/mm3 (4.00-11.30)
[2020-12-29 06:33] LABS: Albumin, Blood 3.9 g/dL (3.4-5.0); Anion Gap 8 mmol/L (6-16); Blood Urea Nitrogen 96 mg/dL (8-24); CO2, Blood 18 mmol/L (21-32); Calcium, Blood 10.6 mg/dL (8.5-10.1); Chloride, Blood 111 mmol/L (98-108); Glucose, Blood 141 mg/dL (70-99); Phosphorus, Blood 5.1 mg/dL (2.5-4.9); Sodium, Blood 137 mmol/L (136-145)
[2020-12-29 06:35] LABS: Bun/Creatinine Ratio 11.8 (12.0-20.0); Creatinine, Blood 8.17 mg/dL (0.40-1.00); Glomerular Filtration Rate 6 (60-); Potassium, Blood 6.2 mmol/L (3.5-5.5)
--- NOTE | 2020-12-29 07:10 | NUR ---
COLORIST DYER SUMMARY PT RESTING, IN NO ACUTE DISTRESS. VS REVIEWED,WNL. NO EPISODES OF EMESIS NOTED, ALTHOUGH PT VOICED C/O NAUSEA. MEDICATED PER EMAR. CLARIFIED ORDERS FOR PRN TRAMADOL WITH PHARMACY, WHO WILL MAKE NECESSARY ADJUSTMENTS. PT WAS ABLE TO SLEEP SOME T/O NIGHT. PT SELF-CATHED THIS AM, THIS RN EDUCATED PT ON IMPORTANCE OF MAINTAINING STERILE TECHNIQUE AND USING A NEW CATHETER EACH TIME TO PREVENT OCCURENCE OF UTIS; INDICATED UNDERSTANDING. INVENTORY TECH NOTIFIED OF NEED FOR SUPPLIES. DR. MICHELLE NOTIFIED OF PT'S CRITICAL CREATININE AND K+, ORDERS RECEIVED AND ENTERED INTO [employer]. PT TO BE DIALYZED TODAY. DENIES NEEDS AT THIS TIME. CALL LIGHT, POSSESSIONS IN REACH, REPORT GIVEN TO FELISHA GILBERT.
[2020-12-29 15:01] LABS: Bun/Creatinine Ratio 8.9 (12.0-20.0); Calcium, Blood 9.8 mg/dL (8.5-10.1); Creatinine, Blood 4.72 mg/dL (0.40-1.00)
[2020-12-29 15:02] LABS: Potassium, Blood 3.2 mmol/L (3.5-5.5)
--- NOTE | 2020-12-29 17:31 | NUR ---
PATIENT DISCHARGED TO HOME ACCOMPANIED BY SISTER, WHO IS DRIVING. PT VERBALIZED UNDERSTANDING OF D/C INSTRUCTIONS AND RECEIVED HARD COPY OF RX FOR TRAMADOL. SHE WILL F/U WITH DR. MICHLELE. IV SALINE LOCK REMOVED WITHOUT INCIDENT. OFF UNIT AT 1715 VIA W/C. NO BELONGINGS LEFT BEHIND.
== END 2020-12-29 17:20 | disposition home or self-care (01) ==
LOC: ER 21:01 → MEDS 21:02
PROVIDERS: Emergency Medicine; Internal Medicine; Nurse Practitioner Acute Care; ADMIT Family Medicine
DX: F11.23 Opioid dependence with withdrawal (principal); R11.2 Nausea with vomiting, unspecified; T40.2X6A Underdosing of other opioids, initial encounter; Z91.138 Patient's unintentional underdosing of medication regimen for other reason; I12.0 Hypertensive chronic kidney disease with stage 5 chronic kidney disease or end stage renal disease; N17.9 Acute kidney failure, unspecified; N18.6 End stage renal disease; E87.5 Hyperkalemia; E87.2 Acidosis; E83.52 Hypercalcemia; E83.39 Other disorders of phosphorus metabolism; E88.09 Other disorders of plasma-protein metabolism, not elsewhere classified; E86.9 Volume depletion, unspecified; D64.9 Anemia, unspecified; J45.909 Unspecified asthma, uncomplicated; G89.29 Other chronic pain; Z91.15 Patient's noncompliance with renal dialysis; Z87.448 Personal history of other diseases of urinary system; Z88.0 Allergy status to penicillin; Z88.2 Allergy status to sulfonamides; Z88.8 Allergy status to other drugs, medicaments and biological substances
CPT/HCPCS: 36415; 80048; 80053; 80069; 82947; 83690; 83735; 85025; 93005; 93010; 94644; 96365; 96372; 96375; 99285-25; A9270; G0257; G0378; J0610; J0780; J0881; J1170; J1644; J1815; J2405; J2765; J7042

== ENCOUNTER → 2021-05-10 | Outpatient (CLI) | payer MEDICARE ==
[2021-05-10 19:46] LABS: BASOPHILS ABSOLUTE AUTO 0.06 K/mm3 (0.00-0.23); BASOPHILS PERCENT AUTO 1 % (0-2); EOSINOPHILS PERCENT AUTO 4 % (0-6); Hematocrit 30.3 % (33.0-51.0); Hemoglobin 9.1 g/dL (11.5-16.0); IMMATURE GRAN ABSOLUTE AUTO 0.01 K/mm3 (0.00-0.10); IMMATURE GRAN PERCENT AUTO 0 % (0-1); LYMPHOCYTES PERCENT AUTO 20 % (21-46); MONOCYTES ABSOLUTE AUTO 0.41 K/mm3 (0.16-1.47); MONOCYTES PERCENT AUTO 9 % (4-13); Mean Corpuscular HGB 31.6 pg (26.0-34.0); Mean Corpuscular Volume 105 fL (80-100); NEUTROPHILS ABSOLUTE AUTO 2.97 K/mm3 (1.96-9.15); NEUTROPHILS PERCENT AUTO 65 % (41-73); Platelet Count 262 K/mm3 (150-400); RDW Coefficient Variation 13.7 % (11.7-14.2); Red Blood Cell Count 2.88 M/mm3 (3.80-5.20); White Blood Cell Count 4.55 K/mm3 (4.00-11.30)
[2021-05-10 20:10] LABS: Albumin, Blood 3.1 g/dL (3.4-5.0); Albumin/Globulin Ratio 0.7 (0.8-1.8); Bilirubin, Total 0.3 mg/dL (0.1-1.0); Bun/Creatinine Ratio 7.6 (12.0-20.0); Calcium, Blood 9.7 mg/dL (8.5-10.1); Creatinine, Blood 7.68 mg/dL (0.40-1.00); Globulin, Blood 4.5 g/dL (2.2-4.0); Potassium, Blood 5.8 mmol/L (3.5-5.5); Total Protein, Blood 7.6 g/dL (6.4-8.2)
[2021-05-11 11:45] LABS: Free Thyroxine 1.02 ng/dL (0.70-1.60); Thyroid Stimulating Hormone 2.82 uIU/mL (0.360-4.800)
== END | disposition home or self-care (01) ==
LOC: LAB 16:50 → LAB SHORT 16:50
PROVIDERS: Student in an Organized Health Care Education/Training Program
DX: R17 Unspecified jaundice (principal); G47.00 Insomnia, unspecified
CPT/HCPCS: 80053; 83690; 84439; 84443; 85025

== ENCOUNTER → 2021-06-11 | Outpatient (CLI) | payer MEDICARE ==
[~2021-06-11] MED LIST changes: +CELEXA10 MG PO; +CEPH500 PO; +MIRALAX17 GM PO; +VISBIOME 112.51 EACH PO; +XANAX0.25 MG PO
== END | disposition home or self-care (01) ==
LOC: LAB 16:57 → LAB SHORT 16:57
DX: R82.79 Other abnormal findings on microbiological examination of urine (principal)
CPT/HCPCS: 87086

== ENCOUNTER 2021-06-12 04:49 | Inpatient (IN) | payer MEDICARE, OTHER ==
[~2021-06-12] VITALS: Ht 175.3 cm; Wt 65.5 kg
[~2021-06-12 04:49] MED LIST changes: -CELEXA10 MG PO; -CEPH500 PO; -MIRALAX17 GM PO; -VISBIOME 112.51 EACH PO; -XANAX0.25 MG PO
[2021-06-12 05:17] LABS: Hematocrit 27.9 % (33.0-51.0); Hemoglobin 8.5 g/dL (11.5-16.0); Mean Corpuscular HGB 31.4 pg (26.0-34.0); Mean Corpuscular HGB Conc 30.5 g/dL (31.5-36.5); Mean Corpuscular Volume 103 fL (80-100); Mean Platelet Volume 9.4 fL (9.1-12.4); Platelet Count 276 K/mm3 (150-400); RDW Coefficient Variation 13.5 % (11.7-14.2); RDW Standard Deviation 50.9 fL (35.1-46.3); Red Blood Cell Count 2.71 M/mm3 (3.80-5.20); White Blood Cell Count 7.76 K/mm3 (4.00-11.30)
[2021-06-12 05:31] LABS: Albumin, Blood 2.2 g/dL (3.4-5.0); Albumin/Globulin Ratio 0.4 (0.8-1.8); Bilirubin, Total 0.7 mg/dL (0.1-1.0); Bun/Creatinine Ratio 7.2 (12.0-20.0); Creatinine, Blood 7.61 mg/dL (0.40-1.00); Magnesium, Blood 2.1 mg/dL (1.6-2.4); Phosphorus, Blood 6.5 mg/dL (2.5-4.9); Potassium, Blood 5.1 mmol/L (3.5-5.5); Total Protein, Blood 7.2 g/dL (6.4-8.2)
[2021-06-12 05:40] LABS: BAND PERCENT MAN 14 % (0-8); BASOPHILS PERCENT MAN 0 % (0-2); EOSINOPHILS ABSOLUTE MAN 0.15 K/mm3 (0.00-0.68); EOSINOPHILS PERCENT MAN 2 % (0-6); LYMPHOCYTES ABSOLUTE MAN 0.38 K/mm3 (0.84-5.20); LYMPHOCYTES PERCENT MAN 5 % (21-46); METAMYELOCYTE ABSOLUTE MAN 0.15 K/mm3 (0.00-0.00); METAMYELOCYTE PERCENT MAN 2 % (0-0); MONOCYTES ABSOLUTE MAN 0.77 K/mm3 (0.16-1.47); MONOCYTES PERCENT MAN 10 % (4-13); NEUTROPHILS ABSOLUTE MAN 6.28 K/mm3 (1.96-9.15); SEG NEUTROPHILS PERCENT MAN 67 % (41-73); TOTAL CELLS COUNTED 100
[2021-06-12 07:06] LABS: Appearance, Urine Turbid (Clear); Bilirubin, Urine Neg (Neg); Blood, Urine 5+ (Neg); Color, Urine Yellow (P-Yellow); Glucose Qualitative, Urine Neg (Neg); Ketones, Urine Neg (Neg); Leukocyte Esterase, Urine 3+ (Neg); Nitrite, Urine Neg (Neg); Protein, Urine 3+ (Neg); Urobilinogen, Urine NORM (Normal)
[2021-06-12 07:14] LABS: Red Blood Cells, Urine TNTC /hpf (0-2); White Blood Cells, Urine TNTC /hpf (0-5)
[2021-06-12 07:15] LABS: Bacteria Many /hpf; Mucus Heavy (0-Heavy); Squamous Epithelial Cells Not Seen /hpf (Few)
[2021-06-12 07:17] LABS: Source, Urine Clean Catch
[2021-06-12] MEDS ORDERED: XANAX0.25 MG PO (11:36)
[2021-06-12] MEDS ORDERED: CELEXA10 MG PO (11:36)
[2021-06-12 14:57] LABS: Source, Urine Catheter
[2021-06-12 15:12] LABS: Appearance, Urine Hazy (Clear); Bilirubin, Urine Neg (Neg); Blood, Urine 5+ (Neg); Color, Urine Yellow (P-Yellow); Glucose Qualitative, Urine Neg (Neg); Ketones, Urine Neg (Neg); Leukocyte Esterase, Urine 3+ (Neg); Nitrite, Urine Neg (Neg); Protein, Urine 3+ (Neg); Urobilinogen, Urine NORM (Normal)
[2021-06-12 15:27] LABS: Bacteria Many /hpf; Red Blood Cells, Urine 25-50 /hpf (0-2); Squamous Epithelial Cells Few /hpf (Few); White Blood Cells, Urine TNTC /hpf (0-5)
--- NOTE | 2021-06-12 18:32 | NUR ---
SHIFT SUMMARY: PT A/O STANDBY ASSIST IN ROOM. PLEASANT AND COOPERATIVE. PT ADMITTED AND HAD DIALYSIS TODAY. [place] WELL BUT WAS VERY TIRED. NO NAUSEA SINCE ARRIVAL TO FLOOR. CATHETER PLACED PER ORDER.
[2021-06-13 04:41] LABS: BASOPHILS ABSOLUTE AUTO 0.02 K/mm3 (0.00-0.23); BASOPHILS PERCENT AUTO 0 % (0-2); Hematocrit 24.2 % (33.0-51.0); Hemoglobin 7.4 g/dL (11.5-16.0); LYMPHOCYTES ABSOLUTE AUTO 0.15 K/mm3 (0.84-5.20); LYMPHOCYTES PERCENT AUTO 2 % (21-46); MONOCYTES ABSOLUTE AUTO 0.42 K/mm3 (0.16-1.47); MONOCYTES PERCENT AUTO 5 % (4-13); Mean Corpuscular HGB 31.4 pg (26.0-34.0); Mean Corpuscular HGB Conc 30.6 g/dL (31.5-36.5); Mean Corpuscular Volume 103 fL (80-100); Mean Platelet Volume 9.4 fL (9.1-12.4); Platelet Count 185 K/mm3 (150-400); RDW Coefficient Variation 13.6 % (11.7-14.2); RDW Standard Deviation 50.1 fL (35.1-46.3); Red Blood Cell Count 2.36 M/mm3 (3.80-5.20); White Blood Cell Count 8.27 K/mm3 (4.00-11.30)
[2021-06-13 05:15] LABS: EOSINOPHILS PERCENT AUTO 0 % (0-6); IMMATURE GRAN ABSOLUTE AUTO 0.02 K/mm3 (0.00-0.10); IMMATURE GRAN PERCENT AUTO 0 % (0-1); NEUTROPHILS ABSOLUTE AUTO 7.66 K/mm3 (1.96-9.15); NEUTROPHILS PERCENT AUTO 93 % (41-73)
[2021-06-13 05:19] LABS: Alanine Aminotransfer (ALT/SGP 14 U/L (12-78); Albumin, Blood 1.9 g/dL (3.4-5.0); Albumin/Globulin Ratio 0.4 (0.8-1.8); Alk Phos 53 U/L (50-136); Anion Gap 8 mmol/L (6-16); Bilirubin, Total 0.5 mg/dL (0.1-1.0); Blood Urea Nitrogen 36 mg/dL (8-24); Bun/Creatinine Ratio 6.1 (12.0-20.0); CO2, Blood 29 mmol/L (21-32); Calcium, Blood 9.9 mg/dL (8.5-10.1); Chloride, Blood 98 mmol/L (98-108); Creatinine, Blood 5.88 mg/dL (0.40-1.00); Globulin, Blood 4.8 g/dL (2.2-4.0); Glomerular Filtration Rate 8 (60-); Glucose, Blood 145 mg/dL (70-99); Magnesium, Blood 2.1 mg/dL (1.6-2.4); Phosphorus, Blood 6.3 mg/dL (2.5-4.9); Sodium, Blood 135 mmol/L (136-145); Total Protein, Blood 6.7 g/dL (6.4-8.2)
[2021-06-13 05:42] LABS: Aspartate Aminotrans (AST/SGOT <3 U/L (12-37)
--- NOTE | 2021-06-13 06:32 | NUR ---
end of shift summary: Pt A&Ox4. Still complaining of pain mainly in the abd area. Abd tender, bowel sounds present. Pt reports that she hasnt has a "real BM in a week" Bowel care regimen given. Vizcarra catheter in place, draining cloudy dark urine with sediment. Pt able to voice needs, call light within reach. Pt anxious and restless. will continue to monitor til end of shift. no acute events overnight.
--- NOTE | 2021-06-13 15:04 | NUR ---
IV IN PLACE AT TIME OF ADMISSION IN RAC. ASSESSMENT COMPLETED PER PROTOCOL.
--- NOTE | 2021-06-13 17:33 | NUR ---
SHIFT SUMMARY: PT A/O X 4 IND IN ROOM. PLEASANT AND COOPERATIVE. PT HAD DIALYSIS AGAIN TODAY AND TOLERATED WELL. PT IS LESS BLOATED AND REPORTING SHE IS HAVING HARD/SOFT STOOL TODAY. URINE CONTINUES TO BE LEA COLORED WITH PUSS DRAINING INTO ROSENBAUM BAG. NO OTHER CONCERNS AT THIS TIME.
[2021-06-14 04:41] LABS: BASOPHILS ABSOLUTE AUTO 0.01 K/mm3 (0.00-0.23); BASOPHILS PERCENT AUTO 0 % (0-2); EOSINOPHILS ABSOLUTE AUTO 0.08 K/mm3 (0.00-0.68); EOSINOPHILS PERCENT AUTO 1 % (0-6); Hematocrit 24.7 % (33.0-51.0); Hemoglobin 7.3 g/dL (11.5-16.0); IMMATURE GRAN ABSOLUTE AUTO 0.03 K/mm3 (0.00-0.10); IMMATURE GRAN PERCENT AUTO 0 % (0-1); LYMPHOCYTES ABSOLUTE AUTO 0.47 K/mm3 (0.84-5.20); LYMPHOCYTES PERCENT AUTO 6 % (21-46); MONOCYTES ABSOLUTE AUTO 0.49 K/mm3 (0.16-1.47); MONOCYTES PERCENT AUTO 6 % (4-13); Mean Corpuscular HGB 30.7 pg (26.0-34.0); Mean Corpuscular HGB Conc 29.6 g/dL (31.5-36.5); Mean Corpuscular Volume 104 fL (80-100); Mean Platelet Volume 9.4 fL (9.1-12.4); NEUTROPHILS ABSOLUTE AUTO 7.01 K/mm3 (1.96-9.15); NEUTROPHILS PERCENT AUTO 87 % (41-73); Platelet Count 187 K/mm3 (150-400); RDW Coefficient Variation 13.7 % (11.7-14.2); RDW Standard Deviation 51.7 fL (35.1-46.3); Red Blood Cell Count 2.38 M/mm3 (3.80-5.20); White Blood Cell Count 8.09 K/mm3 (4.00-11.30)
[2021-06-14 05:06] LABS: Albumin, Blood 1.7 g/dL (3.4-5.0); Anion Gap 4 mmol/L (6-16); Blood Urea Nitrogen 35 mg/dL (8-24); CO2, Blood 33 mmol/L (21-32); Calcium, Blood 9.7 mg/dL (8.5-10.1); Chloride, Blood 94 mmol/L (98-108); Creatinine, Blood 4.99 mg/dL (0.40-1.00); Glomerular Filtration Rate 9 (60-); Glucose, Blood 82 mg/dL (70-99); Magnesium, Blood 2.1 mg/dL (1.6-2.4); Phosphorus, Blood 5.3 mg/dL (2.5-4.9); Sodium, Blood 131 mmol/L (136-145)
[2021-06-14] MEDS ORDERED: MIRALAX17 GM PO (15:23)
[2021-06-14] MEDS ORDERED: VISBIOME 112.51 EACH PO (15:24)
[2021-06-14] MEDS ORDERED: CEPH500 PO (15:26)
--- NOTE | 2021-06-14 19:07 | NUR ---
PT WAS DISCHARGE TO HOME TODAY AT APPROX 1600. SHE WAS ALERT AND ORIENTED X 4, AND DENIED PAIN. ROSENBAUM CATH WAS DISCONTINUED AND PT VOIDED PRIOR TO DISCHARGE. SHE HAD AN UNEVENTFUL DAY.
== END 2021-06-14 16:03 | disposition home or self-care (01) | DRG 698 ==
LOC: ER 04:49 → MEDS 11:47
PROVIDERS: Internal Medicine Nephrology; Nurse Practitioner Acute Care; Physician Assistant; Student in an Organized Health Care Education/Training Program; ADMIT Internal Medicine
PROC: 5A1D70Z Performance of Urinary Filtration, Intermittent, Less than 6 Hours Per Day (ICD-10-PCS; principal; 2021-06-13)
DX: T83.511A Infection and inflammatory reaction due to indwelling urethral catheter, initial encounter (principal); A41.9 Sepsis, unspecified organism; N18.6 End stage renal disease; I12.0 Hypertensive chronic kidney disease with stage 5 chronic kidney disease or end stage renal disease; N25.81 Secondary hyperparathyroidism of renal origin; E87.1 Hypo-osmolality and hyponatremia; N32.1 Vesicointestinal fistula; N13.6 Pyonephrosis; E87.5 Hyperkalemia; E88.09 Other disorders of plasma-protein metabolism, not elsewhere classified; F41.9 Anxiety disorder, unspecified; D63.1 Anemia in chronic kidney disease; J45.909 Unspecified asthma, uncomplicated; Z98.890 Other specified postprocedural states; Z99.2 Dependence on renal dialysis; Z88.0 Allergy status to penicillin; Z88.2 Allergy status to sulfonamides; Z88.8 Allergy status to other drugs, medicaments and biological substances; Y84.6 Urinary catheterization as the cause of abnormal reaction of the patient, or of later complication, without mention of misadventure at the time of the procedure
CPT/HCPCS: 36415; 74176; 80053; 80069; 81001; 83605; 83690; 83735; 84100; 85025; 87040; 87086; 93005; 93010; 96365; 96375; 99285-25; A9270; J0696; J0881; J1170; J1644; J2405; J2550; J2765; J3010

== ENCOUNTER 2021-06-20 23:11 | Emergency (ER) | payer MEDICARE, OTHER ==
[~2021-06-20] VITALS: Ht 175.3 cm; Wt 59.9 kg
[~2021-06-20 23:11] MED LIST changes: +CELEXA10 MG PO; +CEPH500 PO; +MIRALAX17 GM PO; +VISBIOME 112.51 EACH PO; +XANAX0.25 MG PO
== END 2021-06-21 01:30 | disposition home or self-care (01) ==
LOC: ER 23:11
DX: J90 Pleural effusion, not elsewhere classified (principal); I12.9 Hypertensive chronic kidney disease with stage 1 through stage 4 chronic kidney disease, or unspecified chronic kidney disease; N18.5 Chronic kidney disease, stage 5; J45.909 Unspecified asthma, uncomplicated; Z88.2 Allergy status to sulfonamides; Z88.0 Allergy status to penicillin; Z88.8 Allergy status to other drugs, medicaments and biological substances; Z79.899 Other long term (current) drug therapy
CPT/HCPCS: 71045; 99284-25

== ENCOUNTER → 2021-06-27 | Outpatient (CLI) | payer MEDICARE, OTHER ==
[2021-06-27 19:03] LABS: Source, Urine Catheter
[2021-06-27 19:45] LABS: Appearance, Urine Turbid (Clear); Bilirubin, Urine Neg (Neg); Blood, Urine 3+ (Neg); Color, Urine Brown (P-Yellow); Glucose Qualitative, Urine Neg (Neg); Ketones, Urine Neg (Neg); Leukocyte Esterase, Urine 3+ (Neg); Nitrite, Urine Neg (Neg); Protein, Urine 3+ (Neg); Specific Gravity, Urine 1.015 (1.003-1.022); Urobilinogen, Urine 2+ (Normal)
[2021-06-27 19:56] LABS: Amorphous Heavy (0-Heavy); Bacteria Many /hpf; Red Blood Cells, Urine 25-50 /hpf (0-2); Squamous Epithelial Cells Few /hpf (Few); White Blood Cells, Urine 25-50 /hpf (0-5)
== END | disposition home or self-care (01) ==
LOC: LAB 19:01 → LAB SHORT 19:01
PROVIDERS: Family Medicine
DX: R35.0 Frequency of micturition (principal)
CPT/HCPCS: 81001; 87086

== ENCOUNTER 2021-07-07 20:30 | Emergency (ER) | payer MEDICARE, OTHER ==
[~2021-07-07] VITALS: Ht 175.3 cm; Wt 59.0 kg
[2021-07-07 21:30] LABS: BASOPHILS ABSOLUTE AUTO 0.04 K/mm3 (0.00-0.23); BASOPHILS PERCENT AUTO 0 % (0-2); EOSINOPHILS ABSOLUTE AUTO 0.23 K/mm3 (0.00-0.68); EOSINOPHILS PERCENT AUTO 3 % (0-6); Hemoglobin 6.7 g/dL (11.5-16.0); IMMATURE GRAN ABSOLUTE AUTO 0.09 K/mm3 (0.00-0.10); IMMATURE GRAN PERCENT AUTO 1 % (0-1); LYMPHOCYTES ABSOLUTE AUTO 0.83 K/mm3 (0.84-5.20); LYMPHOCYTES PERCENT AUTO 9 % (21-46); MONOCYTES PERCENT AUTO 7 % (4-13); Mean Corpuscular HGB Conc 30.5 g/dL (31.5-36.5); Mean Corpuscular Volume 95 fL (80-100); Mean Platelet Volume 8.5 fL (9.1-12.4); NEUTROPHILS ABSOLUTE AUTO 7.35 K/mm3 (1.96-9.15); NEUTROPHILS PERCENT AUTO 80 % (41-73); Platelet Count 280 K/mm3 (150-400); RDW Coefficient Variation 15.4 % (11.7-14.2); RDW Standard Deviation 53.3 fL (35.1-46.3); Red Blood Cell Count 2.31 M/mm3 (3.80-5.20); White Blood Cell Count 9.14 K/mm3 (4.00-11.30)
== END 2021-07-08 03:08 | disposition home or self-care (01) ==
LOC: ER 20:30
PROVIDERS: Physician Assistant
DX: N18.9 Chronic kidney disease, unspecified (principal); D63.1 Anemia in chronic kidney disease; Z99.2 Dependence on renal dialysis; Z88.2 Allergy status to sulfonamides; Z88.8 Allergy status to other drugs, medicaments and biological substances; Z79.899 Other long term (current) drug therapy; I10 Essential (primary) hypertension; J45.909 Unspecified asthma, uncomplicated
CPT/HCPCS: 36415; 36430; 85025; 86850; 86900; 86901; 86923; 99283-25; J7030; P9016

== ENCOUNTER 2021-07-14 03:17 | Day surgery (SDC) | payer MEDICARE, OTHER | END 2021-07-14 17:23 | disposition home or self-care (01) | LOC: ATC 03:17 | DX: D64.9 Anemia, unspecified (principal); I12.0 Hypertensive chronic kidney disease with stage 5 chronic kidney disease or end stage renal disease; N18.6 End stage renal disease; J45.909 Unspecified asthma, uncomplicated; Z99.2 Dependence on renal dialysis | CPT/HCPCS: 36415; 86850; 86900; 86901; 86923; J7050; P9016 ==

== ENCOUNTER 2021-07-19 22:27 | Inpatient (IN) | payer MEDICARE, OTHER ==
[~2021-07-19] VITALS: Ht 175.3 cm; Wt 59.8 kg
[2021-07-19 23:19] LABS: BASOPHILS ABSOLUTE AUTO 0.09 K/mm3 (0.00-0.23); BASOPHILS PERCENT AUTO 1 % (0-2); EOSINOPHILS ABSOLUTE AUTO 0.04 K/mm3 (0.00-0.68); EOSINOPHILS PERCENT AUTO 0 % (0-6); Hematocrit 28.6 % (33.0-51.0); Hemoglobin 8.9 g/dL (11.5-16.0); IMMATURE GRAN ABSOLUTE AUTO 0.06 K/mm3 (0.00-0.10); IMMATURE GRAN PERCENT AUTO 1 % (0-1); LYMPHOCYTES ABSOLUTE AUTO 0.46 K/mm3 (0.84-5.20); LYMPHOCYTES PERCENT AUTO 5 % (21-46); MONOCYTES ABSOLUTE AUTO 0.35 K/mm3 (0.16-1.47); MONOCYTES PERCENT AUTO 4 % (4-13); Mean Corpuscular HGB Conc 31.1 g/dL (31.5-36.5); Mean Corpuscular Volume 96 fL (80-100); Mean Platelet Volume 9.2 fL (9.1-12.4); NEUTROPHILS ABSOLUTE AUTO 8.73 K/mm3 (1.96-9.15); NEUTROPHILS PERCENT AUTO 90 % (41-73); Platelet Count 318 K/mm3 (150-400); RDW Coefficient Variation 15.2 % (11.7-14.2); RDW Standard Deviation 52.8 fL (35.1-46.3); Red Blood Cell Count 2.97 M/mm3 (3.80-5.20); White Blood Cell Count 9.73 K/mm3 (4.00-11.30)
[2021-07-20 00:15] LABS: Albumin, Blood 2.6 g/dL (3.4-5.0); Albumin/Globulin Ratio 0.5 (0.8-1.8); Bilirubin, Total 0.3 mg/dL (0.1-1.0); Calcium, Blood 10.2 mg/dL (8.5-10.1); Creatinine, Blood 8.77 mg/dL (0.40-1.00); Globulin, Blood 5.3 g/dL (2.2-4.0); Potassium, Blood 5.4 mmol/L (3.5-5.5); Total Protein, Blood 7.9 g/dL (6.4-8.2)
[2021-07-20 01:57] LABS: Source, Urine Catheter
[2021-07-20 02:19] LABS: Appearance, Urine Turbid (Clear); Bilirubin, Urine Neg (Neg); Blood, Urine 4+ (Neg); Color, Urine Yellow (P-Yellow); Glucose Qualitative, Urine Neg (Neg); Ketones, Urine Neg (Neg); Leukocyte Esterase, Urine 3+ (Neg); Nitrite, Urine Neg (Neg); Protein, Urine 4+ (Neg); Urobilinogen, Urine NORM (Normal)
[2021-07-20 02:35] LABS: White Blood Cells, Urine TNTC /hpf (0-5)
[2021-07-20 02:36] LABS: Red Blood Cells, Urine 25-50 /hpf (0-2)
[2021-07-20 02:37] LABS: Bacteria Many /hpf; Mucus Heavy (0-Heavy); Squamous Epithelial Cells Rare /hpf (Few)
[2021-07-20 04:06] LABS: Influenza A, PCR NEGATIVE (NEGATIVE); Influenza B, PCR NEGATIVE (NEGATIVE); Resp Syncytial Virus, PCR NEGATIVE (NEGATIVE); SARS-Cov-2 (COVID-19) PCR, MMC NEGATIVE (NEGATIVE)
[2021-07-20 05:27] LABS: BASOPHILS ABSOLUTE AUTO 0.06 K/mm3 (0.00-0.23); BASOPHILS PERCENT AUTO 1 % (0-2); EOSINOPHILS ABSOLUTE AUTO 0.01 K/mm3 (0.00-0.68); EOSINOPHILS PERCENT AUTO 0 % (0-6); Hematocrit 29.5 % (33.0-51.0); Hemoglobin 8.9 g/dL (11.5-16.0); IMMATURE GRAN ABSOLUTE AUTO 0.02 K/mm3 (0.00-0.10); IMMATURE GRAN PERCENT AUTO 0 % (0-1); LYMPHOCYTES ABSOLUTE AUTO 0.38 K/mm3 (0.84-5.20); LYMPHOCYTES PERCENT AUTO 5 % (21-46); MONOCYTES ABSOLUTE AUTO 0.27 K/mm3 (0.16-1.47); MONOCYTES PERCENT AUTO 3 % (4-13); Mean Corpuscular HGB 29.4 pg (26.0-34.0); Mean Corpuscular HGB Conc 30.2 g/dL (31.5-36.5); Mean Corpuscular Volume 97 fL (80-100); Mean Platelet Volume 9.4 fL (9.1-12.4); NEUTROPHILS ABSOLUTE AUTO 7.29 K/mm3 (1.96-9.15); NEUTROPHILS PERCENT AUTO 91 % (41-73); Platelet Count 328 K/mm3 (150-400); RDW Coefficient Variation 15.4 % (11.7-14.2); RDW Standard Deviation 54.7 fL (35.1-46.3); Red Blood Cell Count 3.03 M/mm3 (3.80-5.20); White Blood Cell Count 8.03 K/mm3 (4.00-11.30)
[2021-07-20 06:10] LABS: Bun/Creatinine Ratio 12.6 (12.0-20.0); Creatinine, Blood 8.82 mg/dL (0.40-1.00); Potassium, Blood 6.1 mmol/L (3.5-5.5)
[2021-07-20 15:09] LABS: Bun/Creatinine Ratio 11.3 (12.0-20.0); Creatinine, Blood 6.75 mg/dL (0.40-1.00); Potassium, Blood 4.7 mmol/L (3.5-5.5)
--- NOTE | 2021-07-20 16:54 | NUR ---
PT PLEASANT TODAY. DID HAVE N/V THIS AM THRU NOON AND DIALYSIS. UPPED MED PER DR. THIS SEEMED TO HELP PER PT. PT ALSO STATES FEELS LIKELY W/D FROM TRAMADOL. BUT REQUEST NOT GIVE UNTIL AFTER DIALYSIS. GAVE. PT HAD LIGHT FEVER, MED WITH TYLENOL, AND HTN. NOTIFIED PLACED BACK ON COZAAR. DONE. NO OTHER CONCERNS NOTED TODAY. IS WALKING ABOUT ROOM INDEPENDANT DESIRES. LUNGS CLEAR, RESP EASY, UNLABORED. ON R/A. H/R REG, NO MURMER NOTED. NO TELE. BTX4 LAST BM YEST. SELF CATH PRN. BED IN LOW POSITION, CALLLITE IN REACH, CALLS APROP
--- NOTE | 2021-07-21 03:33 | NUR ---
PATIENT HAS BEEN PLEASANT AND COOPERATIVE WITH STAFF. RECIEVED IV ABX AT HS WITHOUT S/SX OF ADVERSE REACTIONS NOTED OR REPORTED. NO COMPLAINTS OF PAIN, HOWEVER DID MENTION SOME LINGERING NAUSEA AT BEDTIME WHICH SHE WAS ABLE TO MANAGE. PATIENT IS OTHERWISE WITHOUT ANY ACUTE CHANGES TO REPORT OF AT THIS TIME. CALL LIGHT WITHIN REACH.
[2021-07-21 04:58] LABS: Hematocrit 31.3 % (33.0-51.0); Hemoglobin 9.6 g/dL (11.5-16.0)
[2021-07-21 05:31] LABS: Magnesium, Blood 2.2 mg/dL (1.6-2.4)
[2021-07-21 06:12] LABS: Albumin, Blood 2.5 g/dL (3.4-5.0); Anion Gap 15 mmol/L (6-16); Blood Urea Nitrogen 83 mg/dL (8-24); Bun/Creatinine Ratio 10.6 (12.0-20.0); CO2, Blood 21 mmol/L (21-32); Calcium, Blood 10.2 mg/dL (8.5-10.1); Chloride, Blood 96 mmol/L (98-108); Creatinine, Blood 7.83 mg/dL (0.40-1.00); Glomerular Filtration Rate 5 (60-); Glucose, Blood 103 mg/dL (70-99); Phosphorus, Blood 8.9 mg/dL (2.5-4.9); Potassium, Blood 6.1 mmol/L (3.5-5.5); Sodium, Blood 132 mmol/L (136-145)
--- NOTE | 2021-07-21 08:00 | NUR ---
HIDASCAN TO BE DONE AT [id number]. MUST BE STRICT NPO. HOLDING ALL BUT HEART AND ANX MEDS.
--- NOTE | 2021-07-21 12:00 | NUR ---
BACK TO ROOM. OFF TO DIALYSIS. MUST WAIT ON ABX AND IV UNTIL AFTER DIALYSIS. IV TO BE RUN WITH DIALYSIS AT END.
--- NOTE | 2021-07-21 15:16 | NUR ---
BROUGHT PT BACK FROM DIALYSIS AND PROCEDURE. GAVE MEDS DUE
--- NOTE | 2021-07-21 15:49 | NUR ---
MEM CALLED. LAKSHMI, [phone]. INTERESTED TO KNOW IF GOING HOME. SHE DRIVES HER. DAUGHTER STATES OKAY TO SPEAK TO HER. ADVISED WE WAITING ON SOME LABS. WILL HAVE PT CALL WHEN READY. HOPEFUL FOR THIS AFT.
[2021-07-21 17:21] LABS: Bun/Creatinine Ratio 9.4 (12.0-20.0); Calcium, Blood 9.8 mg/dL (8.5-10.1); Creatinine, Blood 4.81 mg/dL (0.40-1.00)
[2021-07-21] MEDS ORDERED: LOKELMA PO (18:21)
[2021-07-21] MEDS ORDERED: SEVEC800 PO (18:21)
[2021-07-21] MEDS ORDERED: CEFD300 PO (18:22)
--- NOTE | 2021-07-21 19:13 | NUR ---
DISCHARGE REVIEWED WITH PT. IV PULLED INTACT. PT VERBALIZED UNDERSTANDING OF MEDS AND ISNT. HANDED PT RX FOR CATH ITEMS. PT RIDE AT DOOR TO TAKE HOME. WHEELED PT TO DOOR BY MATT. 1914
== END 2021-07-21 19:15 | disposition home or self-care (01) | DRG 698 ==
LOC: ER 22:27 → MEDS 07-20 04:19 → ERHOLD 07-20 04:19 → MEDS 07-20 06:47 → ENPENDDIS 07-20 15:37 → MEDS 07-21 19:15
PROVIDERS: Family Medicine; Internal Medicine Nephrology; Physician Assistant; Student in an Organized Health Care Education/Training Program; ADMIT Family Medicine
PROC: 5A1D70Z Performance of Urinary Filtration, Intermittent, Less than 6 Hours Per Day (ICD-10-PCS; principal; 2021-07-20)
DX: T83.511A Infection and inflammatory reaction due to indwelling urethral catheter, initial encounter (principal); A41.9 Sepsis, unspecified organism; N18.6 End stage renal disease; I12.0 Hypertensive chronic kidney disease with stage 5 chronic kidney disease or end stage renal disease; N25.81 Secondary hyperparathyroidism of renal origin; E87.2 Acidosis; E87.1 Hypo-osmolality and hyponatremia; Z20.822 Contact with and (suspected) exposure to COVID-19; E83.39 Other disorders of phosphorus metabolism; E87.5 Hyperkalemia; F41.9 Anxiety disorder, unspecified; D63.1 Anemia in chronic kidney disease; R10.9 Unspecified abdominal pain; E86.9 Volume depletion, unspecified; N30.10 Interstitial cystitis (chronic) without hematuria; K82.8 Other specified diseases of gallbladder; J45.909 Unspecified asthma, uncomplicated; Z28.21 Immunization not carried out because of patient refusal; Z88.2 Allergy status to sulfonamides; Z88.8 Allergy status to other drugs, medicaments and biological substances; Z99.2 Dependence on renal dialysis; Z79.899 Other long term (current) drug therapy; Z98.890 Other specified postprocedural states; Y84.6 Urinary catheterization as the cause of abnormal reaction of the patient, or of later complication, without mention of misadventure at the time of the procedure
CPT/HCPCS: 0241U; 36415; 74176; 76705; 76770; 78227; 80048; 80053; 80069; 81001; 83605; 83690; 83735; 85014; 85018; 85025; 87086; 93005; 93010; 93990; 96365; 96375; 96376; 99285-25; A9270; A9537; J0610; J0696; J0881; J2270; J2405; J2765; J7030; J7050

== ENCOUNTER 2021-08-12 00:46 | Emergency (ER) | payer MEDICARE, OTHER ==
[~2021-08-12] VITALS: Ht 172.7 cm; Wt 59.0 kg
[~2021-08-12 00:46] MED LIST changes: +CEFD300 PO; +LOKELMA PO; +SEVEC800 PO
[2021-08-12] MEDS ORDERED: SEVELAMER HCL PO (01:08)
[2021-08-12 01:58] LABS: BASOPHILS ABSOLUTE AUTO 0.08 K/mm3 (0.00-0.23); BASOPHILS PERCENT AUTO 1 % (0-2); EOSINOPHILS ABSOLUTE AUTO 0.12 K/mm3 (0.00-0.68); EOSINOPHILS PERCENT AUTO 2 % (0-6); Hematocrit 30.8 % (33.0-51.0); Hemoglobin 9.6 g/dL (11.5-16.0); IMMATURE GRAN ABSOLUTE AUTO 0.02 K/mm3 (0.00-0.10); IMMATURE GRAN PERCENT AUTO 0 % (0-1); LYMPHOCYTES ABSOLUTE AUTO 0.45 K/mm3 (0.84-5.20); LYMPHOCYTES PERCENT AUTO 6 % (21-46); MONOCYTES ABSOLUTE AUTO 0.59 K/mm3 (0.16-1.47); MONOCYTES PERCENT AUTO 8 % (4-13); Mean Corpuscular HGB 29.9 pg (26.0-34.0); Mean Corpuscular HGB Conc 31.2 g/dL (31.5-36.5); Mean Corpuscular Volume 96 fL (80-100); NEUTROPHILS ABSOLUTE AUTO 5.73 K/mm3 (1.96-9.15); NEUTROPHILS PERCENT AUTO 82 % (41-73); Platelet Count 264 K/mm3 (150-400); RDW Coefficient Variation 15.5 % (11.7-14.2); RDW Standard Deviation 54.4 fL (35.1-46.3); Red Blood Cell Count 3.21 M/mm3 (3.80-5.20); White Blood Cell Count 6.99 K/mm3 (4.00-11.30)
[2021-08-12 02:20] LABS: Alanine Aminotransfer (ALT/SGP 19 U/L (12-78); Albumin, Blood 2.4 g/dL (3.4-5.0); Albumin/Globulin Ratio 0.5 (0.8-1.8); Alk Phos 54 U/L (50-136); Anion Gap 12 mmol/L (6-16); Aspartate Aminotrans (AST/SGOT <3 U/L (12-37); Bilirubin, Total 0.5 mg/dL (0.1-1.0); Blood Urea Nitrogen 89 mg/dL (8-24); Bun/Creatinine Ratio 11.7 (12.0-20.0); CO2, Blood 26 mmol/L (21-32); Calcium, Blood 10.4 mg/dL (8.5-10.1); Chloride, Blood 96 mmol/L (98-108); Globulin, Blood 5.1 g/dL (2.2-4.0); Glomerular Filtration Rate 6 (60-); Glucose, Blood 103 mg/dL (70-99); Potassium, Blood 5.3 mmol/L (3.5-5.5); Sodium, Blood 134 mmol/L (136-145); Total Protein, Blood 7.5 g/dL (6.4-8.2)
== END 2021-08-12 02:43 | disposition home or self-care (01) ==
LOC: ER 00:46
PROVIDERS: Emergency Medicine
DX: F11.23 Opioid dependence with withdrawal (principal); I12.0 Hypertensive chronic kidney disease with stage 5 chronic kidney disease or end stage renal disease; N18.5 Chronic kidney disease, stage 5; J45.909 Unspecified asthma, uncomplicated; Z88.2 Allergy status to sulfonamides; Z88.8 Allergy status to other drugs, medicaments and biological substances; Z79.899 Other long term (current) drug therapy
CPT/HCPCS: 36415; 80053; 83605; 83690; 85025; 96372; 99284; A9270; J1630

== ENCOUNTER 2021-10-21 11:53 | Emergency (ER) | payer MEDICARE, OTHER ==
[~2021-10-21] VITALS: Ht 175.3 cm; Wt 61.2 kg
[~2021-10-21 11:53] MED LIST changes: +DICY20 PO; +IMODIUM A-D2 M1 PO; +SEVELAMER HCL PO
[2021-10-21 12:33] LABS: BASOPHILS ABSOLUTE AUTO 0.07 K/mm3 (0.00-0.23); BASOPHILS PERCENT AUTO 2 % (0-2); EOSINOPHILS ABSOLUTE AUTO 0.12 K/mm3 (0.00-0.68); EOSINOPHILS PERCENT AUTO 3 % (0-6); Hematocrit 33.4 % (33.0-51.0); Hemoglobin 10.3 g/dL (11.5-16.0); IMMATURE GRAN ABSOLUTE AUTO 0.01 K/mm3 (0.00-0.10); IMMATURE GRAN PERCENT AUTO 0 % (0-1); LYMPHOCYTES ABSOLUTE AUTO 0.61 K/mm3 (0.84-5.20); LYMPHOCYTES PERCENT AUTO 13 % (21-46); MONOCYTES ABSOLUTE AUTO 0.33 K/mm3 (0.16-1.47); MONOCYTES PERCENT AUTO 7 % (4-13); Mean Corpuscular HGB 30.8 pg (26.0-34.0); Mean Corpuscular HGB Conc 30.8 g/dL (31.5-36.5); Mean Corpuscular Volume 100 fL (80-100); Mean Platelet Volume 9.8 fL (9.1-12.4); NEUTROPHILS PERCENT AUTO 76 % (41-73); Platelet Count 234 K/mm3 (150-400); RDW Coefficient Variation 15.1 % (11.7-14.2); RDW Standard Deviation 55.9 fL (35.1-46.3); Red Blood Cell Count 3.34 M/mm3 (3.80-5.20); White Blood Cell Count 4.64 K/mm3 (4.00-11.30)
[2021-10-21 12:35] LABS: Calcium, Ionized (POC) 1.27 mmol/L (1.10-1.46); Chloride (POC) 97 mmol/L (98-108); Creatinine (POC) 8.1 mg/dL (0.6-1.0); Glucose (ISTAT POC) 87 mg/dL (70-99); Hemoglobin (POC) 12.2 g/dL (12.0-16.0); Potassium (POC) 6.2 mmol/L (3.5-5.5); Sodium (POC) 131 mmol/L (135-148); Total CO2 (POC) 25 mmol/L (21-32)
[2021-10-21 12:53] LABS: Magnesium, Blood 2.3 mg/dL (1.6-2.4)
[2021-10-21 13:13] LABS: Albumin, Blood 3.2 g/dL (3.4-5.0); Albumin/Globulin Ratio 0.7 (0.8-1.8); Bilirubin, Total 0.4 mg/dL (0.1-1.0); Bun/Creatinine Ratio 13.7 (12.0-20.0); Calcium, Blood 10.4 mg/dL (8.5-10.1); Creatinine, Blood 7.81 mg/dL (0.40-1.00); Globulin, Blood 4.5 g/dL (2.2-4.0); Phosphorus, Blood 7.1 mg/dL (2.5-4.9); Potassium, Blood 6.1 mmol/L (3.5-5.5); Total Protein, Blood 7.7 g/dL (6.4-8.2)
== END 2021-10-21 12:53 | disposition home or self-care (01) ==
LOC: ER 11:53
PROVIDERS: Physician Assistant; Student in an Organized Health Care Education/Training Program
DX: E87.5 Hyperkalemia (principal); I12.0 Hypertensive chronic kidney disease with stage 5 chronic kidney disease or end stage renal disease; N18.6 End stage renal disease; Z99.2 Dependence on renal dialysis; R18.8 Other ascites
CPT/HCPCS: 36415; 80047; 80053; 83735; 84100; 85014; 85025; 93005; 93010; 99283-25; J7799

== ENCOUNTER → 2022-01-18 | Outpatient (CLI) | payer MEDICARE, OTHER | LOC: LAB 08:58 → LAB SHORT 08:58 | DX: L28.1 Prurigo nodularis (principal) | CPT/HCPCS: 88305; 88312 ==

== ENCOUNTER 2022-01-24 12:16 | Observation (INO) | payer MEDICARE, OTHER ==
[~2022-01-24] VITALS: Ht 175.3 cm; Wt 60.6 kg
[2022-01-24] MEDS ORDERED: TRAM50 PO (13:30)
[2022-01-24] MEDS ORDERED: LOSA50 PO (13:30)
[2022-01-24 22:02] LABS: Albumin, Blood 2.7 g/dL (3.4-5.0); Anion Gap 13 mmol/L (6-16); Blood Urea Nitrogen 119 mg/dL (8-24); CO2, Blood 21 mmol/L (21-32); Calcium, Blood 9.8 mg/dL (8.5-10.1); Chloride, Blood 96 mmol/L (98-108); Creatinine, Blood 9.18 mg/dL (0.40-1.00); Glomerular Filtration Rate 5 (60-); Glucose, Blood 85 mg/dL (70-99); Phosphorus, Blood 8.2 mg/dL (2.5-4.9); Potassium, Blood 6.3 mmol/L (3.5-5.5); Sodium, Blood 130 mmol/L (136-145)
[2022-01-25 04:29] LABS: BASOPHILS ABSOLUTE AUTO 0.07 K/mm3 (0.00-0.23); BASOPHILS PERCENT AUTO 2 % (0-2); EOSINOPHILS ABSOLUTE AUTO 0.33 K/mm3 (0.00-0.68); EOSINOPHILS PERCENT AUTO 8 % (0-6); Hematocrit 25.1 % (33.0-51.0); Hemoglobin 7.7 g/dL (11.5-16.0); IMMATURE GRAN ABSOLUTE AUTO 0.01 K/mm3 (0.00-0.10); IMMATURE GRAN PERCENT AUTO 0 % (0-1); LYMPHOCYTES ABSOLUTE AUTO 0.36 K/mm3 (0.84-5.20); LYMPHOCYTES PERCENT AUTO 9 % (21-46); MONOCYTES ABSOLUTE AUTO 0.43 K/mm3 (0.16-1.47); MONOCYTES PERCENT AUTO 10 % (4-13); Mean Corpuscular HGB 30.4 pg (26.0-34.0); Mean Corpuscular HGB Conc 30.7 g/dL (31.5-36.5); Mean Corpuscular Volume 99 fL (80-100); Mean Platelet Volume 9.9 fL (9.1-12.4); NEUTROPHILS ABSOLUTE AUTO 2.98 K/mm3 (1.96-9.15); NEUTROPHILS PERCENT AUTO 71 % (41-73); Platelet Count 208 K/mm3 (150-400); RDW Coefficient Variation 15.1 % (11.7-14.2); RDW Standard Deviation 55.2 fL (35.1-46.3); Red Blood Cell Count 2.53 M/mm3 (3.80-5.20); White Blood Cell Count 4.18 K/mm3 (4.00-11.30)
[2022-01-25 05:40] LABS: Albumin, Blood 2.5 g/dL (3.4-5.0); Anion Gap 13 mmol/L (6-16); Blood Urea Nitrogen 122 mg/dL (8-24); CO2, Blood 22 mmol/L (21-32); Calcium, Blood 9.4 mg/dL (8.5-10.1); Chloride, Blood 97 mmol/L (98-108); Glucose, Blood 76 mg/dL (70-99); Sodium, Blood 132 mmol/L (136-145)
[2022-01-25 05:43] LABS: Bun/Creatinine Ratio 12.9 (12.0-20.0); Creatinine, Blood 9.49 mg/dL (0.40-1.00); Glomerular Filtration Rate 5 (60-); Potassium, Blood 6.2 mmol/L (3.5-5.5)
== END 2022-01-25 19:19 | disposition home or self-care (01) ==
LOC: MHTC 12:16 → MEDS 17:22
PROVIDERS: Internal Medicine Nephrology; ADMIT Family Medicine
DX: E87.5 Hyperkalemia (principal); E87.1 Hypo-osmolality and hyponatremia; T82.590A Other mechanical complication of surgically created arteriovenous fistula, initial encounter; I12.0 Hypertensive chronic kidney disease with stage 5 chronic kidney disease or end stage renal disease; N18.6 End stage renal disease; E87.70 Fluid overload, unspecified; R60.0 Localized edema; D64.9 Anemia, unspecified; Z88.0 Allergy status to penicillin; Z88.2 Allergy status to sulfonamides; Z88.8 Allergy status to other drugs, medicaments and biological substances; Z79.899 Other long term (current) drug therapy
CPT/HCPCS: 36415; 76937; 80069; 85025; 96374; 96375; 99152; 99153; A9270; C1725; C1750; C1769; C1874; C1887; C1894; G0257; G0378; J1644; J2250; J3010; J7030; J7040; Q9967

== ENCOUNTER → 2022-04-04 | Outpatient (CLI) | payer MEDICARE, OTHER ==
[2022-04-04 13:53] LABS: Source, Urine Clean Catch
[2022-04-04 17:45] LABS: U Amphetamine Screen Not Detected; U Barbituate Screen Not Detected; U Benzodiazapine Screen Not Detected; U Buprenorphine Screen Not Detected; U Cannabinoids Screen Not Detected; U Cocaine Screen Not Detected; U Methadone Screen Not Detected; U Methamphetamine Screen Not Detected; U Opiates Screen Not Detected; U Oxycodone Screen Not Detected; U Phencyclidine Screen Not Detected; U Propoxyphene Screen Not Detected
[2022-04-04 18:15] LABS: Bacteria Many /hpf; Red Blood Cells, Urine TNTC /hpf (0-2); White Blood Cells, Urine TNTC /hpf (0-5)
[2022-04-04 18:16] LABS: Amorphous Light (0-Heavy)
[2022-04-04 18:17] LABS: Hyaline Casts 0-2 /lpf (0-2); Squamous Epithelial Cells Mod /hpf (Few)
== END | disposition home or self-care (01) ==
LOC: LAB SHORT 13:51
PROVIDERS: Family Medicine
DX: G89.4 Chronic pain syndrome (principal); R31.9 Hematuria, unspecified; Z79.899 Other long term (current) drug therapy
CPT/HCPCS: 81015; 87086

== ENCOUNTER 2022-04-22 10:33 | Emergency (ER) | payer MEDICARE, OTHER ==
[~2022-04-22] VITALS: Ht 175.3 cm; Wt 59.0 kg
[2022-04-22 11:24] LABS: BASOPHILS ABSOLUTE AUTO 0.07 K/mm3 (0.00-0.23); BASOPHILS PERCENT AUTO 1 % (0-2); EOSINOPHILS ABSOLUTE AUTO 0.12 K/mm3 (0.00-0.68); EOSINOPHILS PERCENT AUTO 2 % (0-6); Hematocrit 31.2 % (33.0-51.0); Hemoglobin 9.3 g/dL (11.5-16.0); IMMATURE GRAN ABSOLUTE AUTO 0.03 K/mm3 (0.00-0.10); IMMATURE GRAN PERCENT AUTO 0 % (0-1); LYMPHOCYTES ABSOLUTE AUTO 0.52 K/mm3 (0.84-5.20); LYMPHOCYTES PERCENT AUTO 7 % (21-46); MONOCYTES ABSOLUTE AUTO 0.48 K/mm3 (0.16-1.47); MONOCYTES PERCENT AUTO 6 % (4-13); Mean Corpuscular HGB 29.4 pg (26.0-34.0); Mean Corpuscular HGB Conc 29.8 g/dL (31.5-36.5); Mean Corpuscular Volume 99 fL (80-100); Mean Platelet Volume 10.5 fL (9.1-12.4); NEUTROPHILS ABSOLUTE AUTO 6.23 K/mm3 (1.96-9.15); NEUTROPHILS PERCENT AUTO 84 % (41-73); Platelet Count 195 K/mm3 (150-400); RDW Coefficient Variation 16.2 % (11.7-14.2); RDW Standard Deviation 57.9 fL (35.1-46.3); Red Blood Cell Count 3.16 M/mm3 (3.80-5.20); White Blood Cell Count 7.45 K/mm3 (4.00-11.30)
[2022-04-22 11:41] LABS: Albumin, Blood 2.9 g/dL (3.4-5.0); Albumin/Globulin Ratio 0.6 (0.8-1.8); Bilirubin, Total 0.6 mg/dL (0.1-1.0); Bun/Creatinine Ratio 12.6 (12.0-20.0); Calcium, Blood 10.1 mg/dL (8.5-10.1); Creatinine, Blood 6.42 mg/dL (0.40-1.00); Globulin, Blood 4.9 g/dL (2.2-4.0); Potassium, Blood 5.5 mmol/L (3.5-5.5); Total Protein, Blood 7.8 g/dL (6.4-8.2)
== END 2022-04-22 13:06 | disposition home or self-care (01) ==
LOC: ER 10:33
PROVIDERS: Physician Assistant
DX: M79.622 Pain in left upper arm (principal); M79.89 Other specified soft tissue disorders; I12.0 Hypertensive chronic kidney disease with stage 5 chronic kidney disease or end stage renal disease; N18.6 End stage renal disease; Z99.2 Dependence on renal dialysis; Z79.899 Other long term (current) drug therapy; Z88.0 Allergy status to penicillin; Z88.2 Allergy status to sulfonamides; Z88.8 Allergy status to other drugs, medicaments and biological substances
CPT/HCPCS: 36415; 80053; 85025; 93971

== ENCOUNTER 2022-05-07 15:44 | Inpatient (IN) | payer MEDICARE, OTHER ==
[~2022-05-07] VITALS: Ht 175.3 cm; Wt 59.8 kg
[~2022-05-07 15:44] MED LIST changes: +ENTRESTO 24 MG1 EACH PO; +METO25ER PO; +RENVELA800 MG PO
[2022-05-07] MEDS ORDERED: LOSA50 PO (16:00)
[2022-05-07] MEDS ORDERED: METOPROLOL SUCC25 MG PO (16:01)
[2022-05-07 16:30] LABS: BASOPHILS ABSOLUTE AUTO 0.03 K/mm3 (0.00-0.23); BASOPHILS PERCENT AUTO 1 % (0-2); EOSINOPHILS ABSOLUTE AUTO 0.01 K/mm3 (0.00-0.68); EOSINOPHILS PERCENT AUTO 0 % (0-6); Hematocrit 41.6 % (33.0-51.0); IMMATURE GRAN ABSOLUTE AUTO 0.02 K/mm3 (0.00-0.10); IMMATURE GRAN PERCENT AUTO 0 % (0-1); LYMPHOCYTES ABSOLUTE AUTO 0.58 K/mm3 (0.84-5.20); LYMPHOCYTES PERCENT AUTO 9 % (21-46); MONOCYTES ABSOLUTE AUTO 0.54 K/mm3 (0.16-1.47); MONOCYTES PERCENT AUTO 8 % (4-13); Mean Corpuscular HGB 29.6 pg (26.0-34.0); Mean Corpuscular HGB Conc 31.3 g/dL (31.5-36.5); Mean Corpuscular Volume 95 fL (80-100); Mean Platelet Volume 10.8 fL (9.1-12.4); NEUTROPHILS ABSOLUTE AUTO 5.42 K/mm3 (1.96-9.15); NEUTROPHILS PERCENT AUTO 82 % (41-73); Platelet Count 343 K/mm3 (150-400); RDW Coefficient Variation 16.7 % (11.7-14.2); RDW Standard Deviation 57.2 fL (35.1-46.3); Red Blood Cell Count 4.39 M/mm3 (3.80-5.20)
[2022-05-07 16:56] LABS: Magnesium, Blood 2.7 mg/dL (1.6-2.4)
[2022-05-07 17:26] LABS: Albumin/Globulin Ratio 0.7 (0.8-1.8); Bilirubin, Total 0.5 mg/dL (0.1-1.0); Bun/Creatinine Ratio 16.4 (12.0-20.0); Calcium, Blood 10.4 mg/dL (8.5-10.1); Creatinine, Blood 10.6 mg/dL (0.40-1.00); Globulin, Blood 4.6 g/dL (2.2-4.0); Phosphorus, Blood 11.5 mg/dL (2.5-4.9); Potassium, Blood 8.8 mmol/L (3.5-5.5); Total Protein, Blood 7.6 g/dL (6.4-8.2)
--- NOTE | 2022-05-07 18:00 | NUR ---
ASSUMED CARE: PT ARRIVED FROM ED WITH PERMACATH IN PLACE. SITE WITH SMALL AMOUNT OF BLOOD ON BANDAID SUPRACLAVICULAR. STATES SHE IS TIRED BUT NO OTHER COMPLAINTS. NSR ON TELE. DRESSING PLACED TO COCCYX DUE TO REDNESSED AND STELLA PROMINANCES. ONE IV SITE IN PLACE AND FISTULA NOTED TO LEFT ARM WITH NO BRUIT OR THRILL NOTED. CALL TO DIALYSIS NURSE TO MAKE HER AWARE OF PT
--- NOTE | 2022-05-07 19:30 | NUR ---
ASSUMED CARE OF PT, REPORT RECEIVED. PT IS RESTING QUIETLY RECLINING IN BED AND APPEARS TO BE SLEEPING WHEN UNDISTURBED. SHE DENIES NEEDS AT THIS TIME. PLAN OF CARE FOR DIALYSIS DISCUSSED WITH PT, BIOLOGY INTERNSHIP IS COMING IN AT THIS TIME PER OFFGOING RN. PT IS NOTED TO HAVE NEW DIALYSIS ACCESS TO RIGHT UPPER CHEST WITH CDI DRESSING IN PLACE, PREVIOUS AV FISTULA TO LEFT UPPER ARM IS NOTED WITHOUT BRUIT OR THRILL, PT REPORTS THAT THIS WAS LOST SOMETIME BETWEEN SATURDAY AND TODAY. SHE STATES THAT SHE WAS SCHEDULED FOR DIALYSIS SATURDAY AND AGAIN TODAY BUT OTHERWISE HAS NOT MISSED ANOTHER DIALYSIS APPOINTMENT. SHE DOES REPORT THAT SHE SELF CATHS AT HOME BUT SHE IS UNSURE TO WHETHER SHE WOULD PREFER TO CONTINUE TO STRAIGHT CATH HERE OR IF SHE WOULD PREFER A ROSENBAUM CATHETER FOR URINARY RETENTION OF THIS TIME. WILL MONITOR.
--- NOTE | 2022-05-08 01:16 | NUR ---
URINE: PT BLADDER SCAN DONE, 213 ML VIA BLADDER SCANNER AT TIME OF PT REQUEST TO SELF CATH. STRAIGHT CATH SUPPLIES PROVIDED PER PT REQUEST SHE STATES THAT SHE HAS HAD TO IN AND OUT CATH FOR YEARS UP TO 3 TIMES PER DAY. 300 ML OF PRURULENT URINE IS NOTED IN CLEAN COLLECTION CONTAINER. PT STATES THAT THIS IS NORMAL FOR HER AND HAS BEEN THE COLOR AND CONSISTENCY OF HER URINE SINCE SHE HAD BLADDER REPLACEMENT SURGERY. SHE STATES THAT IT HAS BEEN CULTURED MULTIPLE TIMES OVER THE YEARS AND SHE HAS HAD MANY TREATMENTS WITH ANTIBIOTICS WITHOUT CHANGES IN URINE. SAMPLE PLACED IN SPECIMEN CUP, WILL CALL DR FOX, HOSPITALIST DRY PASTE SUPERVISOR, TO DISCUSS POTENTIAL NEED FOR UA.
[2022-05-08 01:33] LABS: Source, Urine Straight Cath
[2022-05-08 01:38] LABS: Appearance, Urine Turbid (Clear); Bilirubin, Urine Neg (Neg); Blood, Urine 4+ (Neg); Glucose Qualitative, Urine Neg (Neg); Ketones, Urine Neg (Neg); Leukocyte Esterase, Urine 3+ (Neg); Nitrite, Urine Neg (Neg); Protein, Urine 4+ (Neg); Urobilinogen, Urine NORM (Normal)
[2022-05-08 01:41] LABS: Color, Urine Pale Yellow (P-Yellow)
[2022-05-08 01:49] LABS: Bacteria Many /hpf; Squamous Epithelial Cells Not Seen /hpf (Few); White Blood Cells, Urine TNTC /hpf (0-5)
[2022-05-08 03:31] LABS: BASOPHILS ABSOLUTE AUTO 0.04 K/mm3 (0.00-0.23); BASOPHILS PERCENT AUTO 1 % (0-2); EOSINOPHILS ABSOLUTE AUTO 0.02 K/mm3 (0.00-0.68); EOSINOPHILS PERCENT AUTO 0 % (0-6); Hematocrit 42.1 % (33.0-51.0); Hemoglobin 13.3 g/dL (11.5-16.0); IMMATURE GRAN ABSOLUTE AUTO 0.02 K/mm3 (0.00-0.10); IMMATURE GRAN PERCENT AUTO 0 % (0-1); LYMPHOCYTES ABSOLUTE AUTO 0.32 K/mm3 (0.84-5.20); LYMPHOCYTES PERCENT AUTO 6 % (21-46); MONOCYTES PERCENT AUTO 12 % (4-13); Mean Corpuscular HGB 29.4 pg (26.0-34.0); Mean Corpuscular HGB Conc 31.6 g/dL (31.5-36.5); Mean Corpuscular Volume 93 fL (80-100); Mean Platelet Volume 10.4 fL (9.1-12.4); NEUTROPHILS ABSOLUTE AUTO 4.61 K/mm3 (1.96-9.15); NEUTROPHILS PERCENT AUTO 81 % (41-73); Platelet Count 245 K/mm3 (150-400); RDW Coefficient Variation 17.2 % (11.7-14.2); RDW Standard Deviation 55.1 fL (35.1-46.3); Red Blood Cell Count 4.52 M/mm3 (3.80-5.20); White Blood Cell Count 5.71 K/mm3 (4.00-11.30)
[2022-05-08 03:58] LABS: Anion Gap 11 mmol/L (6-16); Blood Urea Nitrogen 90 mg/dL (8-24); Bun/Creatinine Ratio 12.8 (12.0-20.0); CO2, Blood 26 mmol/L (21-32); Calcium, Blood 9.6 mg/dL (8.5-10.1); Chloride, Blood 98 mmol/L (98-108); Creatinine, Blood 7.02 mg/dL (0.40-1.00); Glomerular Filtration Rate 7 (60-); Glucose, Blood 119 mg/dL (70-99); Potassium, Blood 5.6 mmol/L (3.5-5.5); Sodium, Blood 135 mmol/L (136-145)
[2022-05-08 04:30] LABS: Phosphorus, Blood 8.1 mg/dL (2.5-4.9)
--- NOTE | 2022-05-08 06:16 | NUR ---
PT RESTS QUIETLY THROUGHOUT SHIFT, PAIN TO RIGHT UPPER CHEST/ARM IS REPORTED CONTROLLED TO TOLERABLE WITH TRAMADOL 100 MG PO X 1. SHE IS UP TO BSC WITH 1 PERSON SBA AND TOLERATES WELL. PT DOES REPORT YEARS LONG HX OF HAVING TO STRAIGHT CATH HERSELF APPROXIMATELY 3 TIMES DAILY, SHE REPORTS PRURULENT URINE IS HER BASELINE SINCE BLADDER REPLACEMENT SURGERY IN 2005. DIALYSIS WAS COMPLETED BY LIME SLUDGE KILN OPERATOR THIS SHIFT, REPORTED 4000 ML OUTPUT. PT CONTINUES IN SINUS RHYTHM WITH RATE 60S THROUGHOUT NOC, PRESSURES MAINTAINED STABLE. SHE DOES REPORT INCREASED ITCHING HOWEVER STATES THAT THIS TIS NORMAL FOR HER FOLLOWING HEMODIALYSIS IN WHICH A LOT OF FLUID IS REMOVED. SHE STATES THAT SHE HAS NOT FOUND A TREATMENT THAT SUCCESSFULLY ELIMINATES SYMPTOMS. PLAN PER DR MICHELLE IS FOR DIALYSIS AGAIN TODAY.
--- NOTE | 2022-05-08 12:19 | NUR ---
REASSESSMENT PT HAS BEEN RESTING IN BED THROUGHOUT THE MORNING. SHE GOT UP ONCE TO THE TOILET AND HAD A BM. PT WAS STEADY ON HER FEET. REMAINS IN SR, LUNGS CLEAR, RA, BP STABLE. TALKED WITH DR. MONTIEL ABOUT RESTARTING PT'S HEART MEDICATIONS, WHICH SHE OK'D. PT IS NORMALLY A MON/FRI DIALYSIS SCHEDULE. DIALYSIS COMMUNICATION SAID NO DIALYSIS TODAY. INQUIRED WITH DR. MONTIEL ABOUT POSSIBILTY OF DISCHARGE FOR PT AND SHE SAID SHE WOULD TALK WITH DR. MICHELLE.
--- NOTE | 2022-05-08 16:50 | NUR ---
SHIFT SUMMARY PT HAS BEEN ALERT AND ORIENTED THROUGHOUT THE SHIFT. SHE HAS BEEN UP INDEPENDENTLY IN THE ROOM, STEADY ON HER FEET. RA, CLEAR LUNGS, SR, BP STABLE, EATING WELL. PURLER CALLED AND SAID THEY PLAN FOR DIALYSIS TOMRROW AT 9AM. PT WOULDVE LIKED TO GO HOME TODAY BUT UNDERSTANDS THE NEED TO STAY.
--- NOTE | 2022-05-08 20:04 | NUR ---
ASSUMED CARE PATIENT IS ALERT AND ORIENTED X4. 02 SATS >95% ON RA, DENIES SOB. HR SR 60s. BP STABLE. INDEPENDENT IN ROOM, STRAIGHT CATHS SELF. CALL LIGHT IN REACH.
[2022-05-09 03:38] LABS: Hematocrit 37.9 % (33.0-51.0); Hemoglobin 11.9 g/dL (11.5-16.0)
[2022-05-09 04:05] LABS: Magnesium, Blood 2.4 mg/dL (1.6-2.4)
[2022-05-09 04:13] LABS: Albumin, Blood 2.7 g/dL (3.4-5.0); Anion Gap 11 mmol/L (6-16); Blood Urea Nitrogen 106 mg/dL (8-24); Bun/Creatinine Ratio 12.8 (12.0-20.0); CO2, Blood 26 mmol/L (21-32); Calcium, Blood 9.9 mg/dL (8.5-10.1); Chloride, Blood 97 mmol/L (98-108); Creatinine, Blood 8.31 mg/dL (0.40-1.00); Glomerular Filtration Rate 5 (60-); Glucose, Blood 110 mg/dL (70-99); Phosphorus, Blood 8.6 mg/dL (2.5-4.9); Sodium, Blood 134 mmol/L (136-145)
--- NOTE | 2022-05-09 09:07 | NUR ---
ASSUMED CARE PT IS ALERT AND ORIENTED LYING IN BED. DISCUSSED WITH PT ABOUT DIALYSIS TODAY. ALSO DISCUSSED WITH PT ABOUT HER STRUGGLES WITH MEDICATION ADHERENCE. DISCUSSED USAGE OF A PILL ORGANIZER, WHICH SHE IS INTERESTED IN.
[2022-05-09 13:29] LABS: Bun/Creatinine Ratio 11.7 (12.0-20.0); Calcium, Blood 9.8 mg/dL (8.5-10.1); Creatinine, Blood 6.18 mg/dL (0.40-1.00); Potassium, Blood 4.9 mmol/L (3.5-5.5)
[2022-05-09] MEDS ORDERED: ARANESP25 MCG/0.1 ×2 (14:51)
[2022-05-09] MEDS ORDERED: COLACE100 MG PO ×2 (14:52)
[2022-05-09] MEDS ORDERED: LOKELMA PO ×2 (14:53)
--- NOTE | 2022-05-09 15:46 | NUR ---
ORDERS RECEIVED TO DISCHARGE PT HOME. UPON GIVING DC ORDERS IT WAS NOTED THAT INFLAMATION HAD WORSENED TO RIGHT FA VEIN. AREA RED, WARM, WITH SOME SWELLING NOTED TO FA. WARM PACK MADE FOR PT AND DR MONTIEL CALLED. DR MONTIEL AT BEDSIDE TO EXAM INFLAMATION. PT INSTRUCTED TO USE WARM COMPRESS AND TO KEEP ARM ELEVATED. IF SWELLING ,PAIN, REDNESS BECAME WORSE, PT WAS THEN INSTRUCTED TO HAVE ARM SEEN BY PHYSICIAN. PT ALSO INSTRUCTED TO BE SEEN IF SHE DEVELOPED ANY OTHER SYMPTOMS SUCH FEVER. PT WILL SHOW DIALYSIS NURSE TOMORROW AT APPOINTMENT. FULL VERBAL AND WRITTEN DISCHARGE INSTRUCTIONS GIVEN TO PT AND PT'S SISTER W CLEAR UNDERSTANDING. NEW RX'S FAXED TO [facility].
== END 2022-05-09 15:30 | disposition home or self-care (01) | DRG 640 ==
LOC: ER 15:44 → ICUW 16:58 → ICUE 16:58
PROVIDERS: Family Medicine; Internal Medicine; Internal Medicine Nephrology; Student in an Organized Health Care Education/Training Program; ADMIT Internal Medicine
PROC: 5A1D70Z Performance of Urinary Filtration, Intermittent, Less than 6 Hours Per Day (ICD-10-PCS; principal; 2022-05-07)
DX: E87.5 Hyperkalemia (principal); N18.6 End stage renal disease; I50.22 Chronic systolic (congestive) heart failure; I13.2 Hypertensive heart and chronic kidney disease with heart failure and with stage 5 chronic kidney disease, or end stage renal disease; R18.8 Other ascites; E83.39 Other disorders of phosphorus metabolism; Z98.890 Other specified postprocedural states; Z88.0 Allergy status to penicillin; Z88.1 Allergy status to other antibiotic agents; Z88.2 Allergy status to sulfonamides; Z79.899 Other long term (current) drug therapy; J45.909 Unspecified asthma, uncomplicated; F32.A Depression, unspecified; E87.1 Hypo-osmolality and hyponatremia; E87.70 Fluid overload, unspecified; E87.2 Acidosis; D63.1 Anemia in chronic kidney disease
CPT/HCPCS: 36415; 76705; 76937; 80048; 80053; 80069; 81001; 83735; 84100; 84132; 85014; 85018; 85025; 87086; 93005; 93010; 94644; 94664; 96365; 96375; 99152; 99153; 99285-25; A9270; C1750; C1769; C1894; J1644; J1815; J7799

== ENCOUNTER 2022-05-13 16:57 | Emergency (ER) | payer MEDICARE, OTHER ==
[~2022-05-13] VITALS: Ht 175.3 cm; Wt 59.0 kg
[~2022-05-13 16:57] MED LIST changes: +ARANESP25 MCG/0.1; +COLACE100 MG PO; +METOPROLOL SUCC25 MG PO
[2022-05-13] MEDS ORDERED: MIRALAX1713 PO (18:45)
== END 2022-05-13 20:36 | disposition left against medical advice (07) ==
LOC: ER 16:57
DX: L76.22 Postprocedural hemorrhage of skin and subcutaneous tissue following other procedure (principal); Z79.899 Other long term (current) drug therapy; Z53.21 Procedure and treatment not carried out due to patient leaving prior to being seen by health care provider
CPT/HCPCS: 99281

== ENCOUNTER 2022-05-19 08:42 | Inpatient (IN) | payer MEDICARE, OTHER ==
[~2022-05-19] VITALS: Ht 175.3 cm; Wt 57.0 kg
[~2022-05-19 08:42] MED LIST changes: -ARANESP25 MCG/0.1; +ARANESP25 MCG/0.1 SC; +MIRALAX1713 PO
[2022-05-19 10:42] LABS: BASOPHILS ABSOLUTE AUTO 0.03 K/mm3 (0.00-0.23); BASOPHILS PERCENT AUTO 0 % (0-2); EOSINOPHILS ABSOLUTE AUTO 0.03 K/mm3 (0.00-0.68); EOSINOPHILS PERCENT AUTO 0 % (0-6); Hematocrit 31.2 % (33.0-51.0); Hemoglobin 9.7 g/dL (11.5-16.0); IMMATURE GRAN ABSOLUTE AUTO 0.04 K/mm3 (0.00-0.10); IMMATURE GRAN PERCENT AUTO 0 % (0-1); LYMPHOCYTES ABSOLUTE AUTO 0.37 K/mm3 (0.84-5.20); LYMPHOCYTES PERCENT AUTO 4 % (21-46); MONOCYTES ABSOLUTE AUTO 0.66 K/mm3 (0.16-1.47); MONOCYTES PERCENT AUTO 7 % (4-13); Mean Corpuscular HGB 29.8 pg (26.0-34.0); Mean Corpuscular HGB Conc 31.1 g/dL (31.5-36.5); Mean Corpuscular Volume 96 fL (80-100); NEUTROPHILS ABSOLUTE AUTO 7.77 K/mm3 (1.96-9.15); NEUTROPHILS PERCENT AUTO 87 % (41-73); Platelet Count 192 K/mm3 (150-400); RDW Coefficient Variation 18.5 % (11.7-14.2); RDW Standard Deviation 64.4 fL (35.1-46.3); Red Blood Cell Count 3.26 M/mm3 (3.80-5.20)
[2022-05-19 10:52] LABS: Bun/Creatinine Ratio 14.3 (12.0-20.0); Calcium, Blood 8.9 mg/dL (8.5-10.1); Creatinine, Blood 5.59 mg/dL (0.40-1.00)
--- NOTE | 2022-05-19 13:15 | NUR ---
pt arrived to 340 via gurney from ED, report obtained, pt able to stand and tx to bed, a/ox3, anxious, lungs are course t/o, resp even and unlabored, no cough noted, hrr, tele in place running sr per monitor, see strip, no edema noted, ppp+1, cap refill<3sec, vs stable, afebrile, iv site is clear and patent, btx4, abd flat soft nontender, she reports she does make some urine, skin is a bit dusky and has a mass on right posterior shoulder, this was pointed out to Dr. Beth who ordered a ct scan for it, madan winter, oriented to room layout and call system, call light in reach.
[2022-05-19 15:35] LABS: SARS-Cov-2 (COVID-19) PCR, MMC NEGATIVE (NEGATIVE)
--- NOTE | 2022-05-19 16:33 | NUR ---
pt having dialysis, Dr. Luna was consulted for permacath removal after dialysis, she will also asperate the lump posterior right shoulder, pt doing ok, call light in reach.
[2022-05-19] MEDS ORDERED: CLOBETASOL EMOL15 G1 TOP (19:30)
[2022-05-19] MEDS ORDERED: Celexa20 MG PO ×2 (19:32)
[2022-05-19] MEDS ORDERED: LOSA50 PO (19:33)
--- NOTE | 2022-05-19 19:47 | NUR ---
SHIFT SUMMARY PLEASANT 52-YEAR-OLD, A&O X3. DR ARREAGA REMOVED INFECTED PERMACATH THIS SHIFT TO BE REPLACED POSSIBLY TOMORROW. ORDER FOR BLADDER SCAN AND FURTHER INSTRUCTIONS. PTN SELF-CATHETERIZES 1-2 TIMES A DAY. CONTINUE TO MONITOR.
[2022-05-20 04:53] LABS: BASOPHILS ABSOLUTE AUTO 0.04 K/mm3 (0.00-0.23); BASOPHILS PERCENT AUTO 1 % (0-2); EOSINOPHILS ABSOLUTE AUTO 0.09 K/mm3 (0.00-0.68); EOSINOPHILS PERCENT AUTO 1 % (0-6); Hemoglobin 9.9 g/dL (11.5-16.0); IMMATURE GRAN ABSOLUTE AUTO 0.05 K/mm3 (0.00-0.10); IMMATURE GRAN PERCENT AUTO 1 % (0-1); LYMPHOCYTES ABSOLUTE AUTO 0.49 K/mm3 (0.84-5.20); LYMPHOCYTES PERCENT AUTO 6 % (21-46); MONOCYTES ABSOLUTE AUTO 0.72 K/mm3 (0.16-1.47); MONOCYTES PERCENT AUTO 8 % (4-13); Mean Corpuscular HGB 29.1 pg (26.0-34.0); Mean Corpuscular Volume 97 fL (80-100); Mean Platelet Volume 11.2 fL (9.1-12.4); NEUTROPHILS ABSOLUTE AUTO 7.36 K/mm3 (1.96-9.15); NEUTROPHILS PERCENT AUTO 84 % (41-73); Platelet Count 200 K/mm3 (150-400); RDW Coefficient Variation 18.8 % (11.7-14.2); White Blood Cell Count 8.75 K/mm3 (4.00-11.30)
[2022-05-20 05:38] LABS: Albumin, Blood 2.1 g/dL (3.4-5.0); Anion Gap 7 mmol/L (6-16); Blood Urea Nitrogen 58 mg/dL (8-24); Bun/Creatinine Ratio 13.8 (12.0-20.0); CO2, Blood 31 mmol/L (21-32); Chloride, Blood 94 mmol/L (98-108); Creatinine, Blood 4.19 mg/dL (0.40-1.00); Glomerular Filtration Rate 12 (60-); Glucose, Blood 76 mg/dL (70-99); Magnesium, Blood 1.9 mg/dL (1.6-2.4); Phosphorus, Blood 4.7 mg/dL (2.5-4.9); Potassium, Blood 5.3 mmol/L (3.5-5.5); Sodium, Blood 132 mmol/L (136-145)
--- NOTE | 2022-05-20 06:13 | NUR ---
HI SUMMARY Admission Hx & med rec completed. Home meds given at HS, patient reported anxiety. Atarax given for anxiety, PRN effective. Bladder scan at HS, >350mL. Patient self cathed, stated she self caths BID. Permacath removed at bedside on . Dressing over right chest, CDI. Vitals stable. Will continue to monitor.
--- NOTE | 2022-05-20 10:03 | NUR ---
pt sitting up on the side of the bed, awake a/ox3, pleasant and cooperative with care, follows commands well, requesting pain meds for general joint and all over pain, will give tramadol with am meds, lungs are course t/o, resp even and unlabored, has a productive cough, on r/a, hrr, tele in place running sr per monitor, see strip, no edema noted, ppp+1, cap refill <3sec, vs stable, afebrile, iv site is clear and patent, btx4, abd flat soft nontender, self caths to void, skin has a soft lump to right posterior shoulder, dusky in color, no open areas but is very thin, her tail bone is very prominant and at risk for breakdown, placed a mepilex for prevention and an egg crate on the bed for comfort and prevention, she verbalized relief of discomfort, madan, call light in reach.
--- NOTE | 2022-05-20 18:21 | NUR ---
pt has had an uneventful day, up to the bathroom a number of times, self caths for urine, medicated once for pain, watching tv, call light in reach.
--- NOTE | 2022-05-21 05:39 | NUR ---
NIGHTSHIFT SUMMARY Maeve AOx4, requested PRN for pain/anxiety at HS. NPO at midnight.Patient reported feeling sick to her stomach, acid reflux. Administred IV zofran and hydroyzine for anixety. Patient reports feeling anxious about procedure today. Vitals stable. Will continue to monitor.
--- NOTE | 2022-05-21 06:27 | NUR ---
CRITICAL LAB RESULT BC from 05/20/22 resulted Gram + cocci with clusters. Patient currently receiving Ancef/Kefzol IV daily. VSS, afebrile. Notifed MD of results.
[2022-05-21 07:30] LABS: BASOPHILS ABSOLUTE AUTO 0.05 K/mm3 (0.00-0.23); BASOPHILS PERCENT AUTO 1 % (0-2); EOSINOPHILS ABSOLUTE AUTO 0.03 K/mm3 (0.00-0.68); EOSINOPHILS PERCENT AUTO 0 % (0-6); Hematocrit 28.5 % (33.0-51.0); Hemoglobin 8.5 g/dL (11.5-16.0); IMMATURE GRAN ABSOLUTE AUTO 0.04 K/mm3 (0.00-0.10); IMMATURE GRAN PERCENT AUTO 1 % (0-1); LYMPHOCYTES ABSOLUTE AUTO 0.48 K/mm3 (0.84-5.20); LYMPHOCYTES PERCENT AUTO 7 % (21-46); MONOCYTES ABSOLUTE AUTO 0.55 K/mm3 (0.16-1.47); MONOCYTES PERCENT AUTO 8 % (4-13); Mean Corpuscular HGB Conc 29.8 g/dL (31.5-36.5); Mean Corpuscular Volume 97 fL (80-100); Mean Platelet Volume 10.5 fL (9.1-12.4); NEUTROPHILS ABSOLUTE AUTO 6.12 K/mm3 (1.96-9.15); NEUTROPHILS PERCENT AUTO 84 % (41-73); Platelet Count 205 K/mm3 (150-400); RDW Coefficient Variation 18.7 % (11.7-14.2); RDW Standard Deviation 65.9 fL (35.1-46.3); Red Blood Cell Count 2.93 M/mm3 (3.80-5.20); White Blood Cell Count 7.27 K/mm3 (4.00-11.30)
[2022-05-21 07:50] LABS: Albumin, Blood 2.3 g/dL (3.4-5.0); Anion Gap 10 mmol/L (6-16); Blood Urea Nitrogen 78 mg/dL (8-24); Bun/Creatinine Ratio 15.2 (12.0-20.0); CO2, Blood 28 mmol/L (21-32); Calcium, Blood 9.1 mg/dL (8.5-10.1); Chloride, Blood 92 mmol/L (98-108); Creatinine, Blood 5.14 mg/dL (0.40-1.00); Glomerular Filtration Rate 10 (60-); Glucose, Blood 81 mg/dL (70-99); Magnesium, Blood 2.1 mg/dL (1.6-2.4); Phosphorus, Blood 5.6 mg/dL (2.5-4.9); Potassium, Blood 5.9 mmol/L (3.5-5.5); Sodium, Blood 130 mmol/L (136-145)
--- NOTE | 2022-05-21 08:18 | NUR ---
[facility] CALLED[facility] TO H/C FOR CAPO SHORTLY. HOLDING AM MEDS UNTIL RETURN
--- NOTE | 2022-05-21 10:19 | NUR ---
CAPO STARTED/TIME OUT 954, ENDED 1005, PT [place] WELL, DR RAMOS AND DR DE LOS SANTOS PRESENT FOR CARDILOGY AND ANESTHESIA. VS WNL THROUGHOUT PROCEDURE
--- NOTE | 2022-05-21 11:10 | NUR ---
PT AWAKE, SITS AND SIPS JUICE OK, TAKEN BACK TO RM 340
--- NOTE | 2022-05-21 18:14 | NUR ---
PT PLEASANT TODAY. HAS COMPLAINED OF UPSET TUMMY. DR ANTOINE CALLED AND CAME TO ROOM. MEDS FOR TOMORROW AM STARTED. DR ALSO STATED NO VEGITATION GROWTH NOTED IN CAPO. PT REMAINS TIRED. PENDING CLEAN BLOOD LABS FOR PLACEMENT OF NEW PERMACATH. BED IN LOW POSITION, CALL LITE IN REACH, CALLS APPROP
--- NOTE | 2022-05-21 23:12 | NUR ---
PHYSICIAN COMMUNICATION CONTACTED DR SCHOFIELD TO NOTIFY HIM THAT THE PATIENT WAS ASKING FOR SOMETHING NEEDED TO HELP WITH HEARTBURN. SEE MAR FOR ORDER.
[2022-05-22 06:17] LABS: Hematocrit 31.2 % (33.0-51.0); Hemoglobin 9.2 g/dL (11.5-16.0)
--- NOTE | 2022-05-22 06:33 | NUR ---
SHIFT SUMMARY PATIENT ALERT AND ORIENTED. MEDICATED PER EMAR FOR HEARTBURN AND PAIN. PATIENT STATES SHE IS FEELING MUCH BETTER THIS MORNING. NO ACUTE ISSUES NOTED OVERNIGHT. CALL LIGHT WITHIN REACH. REPORT GIVEN TO ONCOMING RN.
[2022-05-22 06:34] LABS: Magnesium, Blood 2.4 mg/dL (1.6-2.4)
[2022-05-22 06:49] LABS: Albumin, Blood 2.4 g/dL (3.4-5.0); Anion Gap 17 mmol/L (6-16); Blood Urea Nitrogen 96 mg/dL (8-24); Bun/Creatinine Ratio 15.7 (12.0-20.0); CO2, Blood 23 mmol/L (21-32); Calcium, Blood 9.5 mg/dL (8.5-10.1); Chloride, Blood 91 mmol/L (98-108); Creatinine, Blood 6.13 mg/dL (0.40-1.00); Glomerular Filtration Rate 8 (60-); Glucose, Blood 54 mg/dL (70-99); Phosphorus, Blood 7.8 mg/dL (2.5-4.9); Potassium, Blood 7.1 mmol/L (3.5-5.5); Sodium, Blood 131 mmol/L (136-145)
[2022-05-22 07:31] LABS: Magnesium, Blood 2.4 mg/dL (1.6-2.4)
[2022-05-22 07:46] LABS: Albumin, Blood 2.4 g/dL (3.4-5.0); Anion Gap 17 mmol/L (6-16); Blood Urea Nitrogen 95 mg/dL (8-24); Bun/Creatinine Ratio 15.7 (12.0-20.0); CO2, Blood 23 mmol/L (21-32); Calcium, Blood 9.3 mg/dL (8.5-10.1); Chloride, Blood 90 mmol/L (98-108); Creatinine, Blood 6.05 mg/dL (0.40-1.00); Glomerular Filtration Rate 8 (60-); Glucose, Blood 53 mg/dL (70-99); Phosphorus, Blood 8.2 mg/dL (2.5-4.9); Sodium, Blood 130 mmol/L (136-145)
--- NOTE | 2022-05-22 15:16 | NUR ---
SHIFT SUMMARY PT AWAKE DURING SHIFT REPORT, RESTING QUIETLY SITTING UP IN BED. PT APPEARS VERY WEAK AND FRAGILE. PER SHIFT REPORT, CRITICAL K+ LEVEL CALLED TO EMILY RN, WITH NEW ORDERS TO BE STARTED WHEN OBTAINED FROM PHARMACY. MEDS GIVEN, FLUIDS STARTED, AND CBG'S CHK'D PER ORDERS. LAB TO RM, PER ORDERS FOR BCX'S AND K+ RE-CK. ATTEMPTED TO CALL DR MICHELLE SEVERAL TIMES, PER ORDERS, BUT PHONE BUSY AND THEN ABLE TO LEAVE MESSAGE. NO NEW ORDERS PLACED. DR HENRY IN TO SEE PT AND DISCUSS PLAN OF CARE. PT INFORMED OF URINE OUTPUT TO BE DOCUMENTED. PT SELF CATH'S TWICE PER DAY. UP TO BTHRM WITH SBA D/T WEAKNESS AND IV PUMP AND TUBING. MEDICATED PER EMAR X1 FOR C/O JOINT PAIN. RESTING QUIETLY OFF AND ON THRU OUT THE DAY. CURRENTLY SITTING UP IN CHAIR AT BS WATCHING TV. REQUESTED MEDICATION FOR ANXIETY AND HALLUCINATIONS; GIVEN PER EMAR. ALSO REQUESTED STEROID CREAM FOR RASH TO BACK. DR TENORIO NOTIFIED. NEW ORDERS PLACED. DENIED FURTHER NEEDS. CALL LT IN REACH.
--- NOTE | 2022-05-22 16:03 | NUR ---
SHIFT SUMMARY PT AWAKE DURING SHIFT REPORT, RESTING QUIETLY SITTING UP IN BED. PT APPEARS VERY WEAK AND FRAGILE. PER SHIFT REPORT, CRITICAL K+ LEVEL CALLED TO EMILY RN, WITH NEW ORDERS TO BE STARTED WHEN OBTAINED FROM PHARMACY. MEDS GIVEN, FLUIDS STARTED, AND CBG'S CHK'D PER ORDERS. LAB TO RM, PER ORDERS FOR BCX'S AND K+ RE-CK. ATTEMPTED TO CALL DR MICHELLE SEVERAL TIME, PER ORDERS, BUT PHONE WAS BUSY AND THEN ABLE TO LEAVE MESSAGE. NO NEW ORDERS RECEIVED OR PLACED. DR HENRY IN TO SEE PT AND DISCUSS PLAN OF CARE. PT INFORMED OF URINE OUTPUT TO BE DOCUMENTED. PT SELF CATH'S TWICE PER DAY. UP TO BTHRM WITH SBA D/T WEAKNESS AND IV PUMP AND TUBING. MEDICATED PER EMAR X1 FOR C/O JOINT PAIN. RESTING QUIETLY OFF AND ON THRU OUT THE DAY. DOES NOT EAT OR DRINK MUCH AT ALL, EVEN WITH ENCOURAGEMENT. DENIES FURTHER NEEDS. CALL LT IN REACH.
--- NOTE | 2022-05-22 19:05 | NUR ---
1 AMP DEXTROSE, 7 UNITS HUMULIN AND 50 MEQ SODIUM BICARB RECIEVED PER EMAR BY HARDIK Lakhani PLAN TO RECHECK K+ LEVEL AND WILL MONITOR CBG Q1H X3 HOURS RX'D. WILL ALERT OF LAB RESULT AND MONITOR FOR S/S HYPER/HYPOGLYCEMIA.
--- NOTE | 2022-05-22 21:00 | NUR ---
DR. MICHELLE ALERTED TO K+NOW 5.6 (WAS 6.6). NO NEW ORDERS RECIEVED. CBG 151 AND STABLE AT THIS TIME.
--- NOTE | 2022-05-22 23:15 | NUR ---
APPLEJUICE AND CHEESE PROVIDED FOR CBG TRENDING DOWNWARD, NOW 92. WILL CONTINUE TO MONITOR CLOSELY AND ALERT MD SIDDIQUI.
--- NOTE | 2022-05-23 00:17 | NUR ---
CBG TRENDING BACK UPWARD, NOW 105. 5% DEXTROSE INFUSING CONTINUOUSLY AT 50 ML/HR. WILL MONITOR CLOSELY.
--- NOTE | 2022-05-23 04:41 | NUR ---
SUMMARY: PT A/OX4, CALLS APPROPRIATELY TO SPECIFY NEEDS AND IS PLEASANT AND COOPERATIVE W/CARE. SHE'S BEEN MEDICALLY MANAGED FOR HYPERKALEMIA PENDING NEW DIALYSIS CATH PLACEMENT. D5 W/INSULIN AND BICARB RECIEVED AND SCHEDULED LOKELMA PROVIDED. K+ DOWN TO 5.6 W/AM LABS PENDING. CBG'S CLOSELY MONITORED T/O NOCTE FOR S/S HYPER/HYPOGLYCEMIA. 5% DEXTROSE INFUSING AT 75 ML/HR. BANDAID REMAINS C/D/I TO R.UPPER CHEST WALL FROM PREVIOUS HD CATH. FISTULA PRESENT BUT NOT WORKING TO L.ARM. SHE'S BEEN NPO SINCE 399 FOR POSSIBLE NEW PERMCATH PLACEMENT PENDING BLOOD CX RESULTS. IV ABX BEING RECIEVED. SHE ST.CATHS SELF BID AND IS UP W/SBA TO TOILET. ULTRAM RECIEVED PRN FOR TOLERABLE RELIEF OF MUSCLE/JOINT PAIN. VSS/AFEBRILE, NO ACUTE CHANGES. PT REMAINS NSR ON TELE AT 70'S BPM. WCTM AND REPORT TO DAY RN.
[2022-05-23 05:30] LABS: Hematocrit 28.7 % (33.0-51.0); Hemoglobin 8.8 g/dL (11.5-16.0)
[2022-05-23 06:04] LABS: Magnesium, Blood 2.4 mg/dL (1.6-2.4)
[2022-05-23 06:07] LABS: Albumin, Blood 2.3 g/dL (3.4-5.0); Anion Gap 15 mmol/L (6-16); Blood Urea Nitrogen 104 mg/dL (8-24); Bun/Creatinine Ratio 15.1 (12.0-20.0); CO2, Blood 27 mmol/L (21-32); Calcium, Blood 9.2 mg/dL (8.5-10.1); Chloride, Blood 88 mmol/L (98-108); Creatinine, Blood 6.89 mg/dL (0.40-1.00); Glomerular Filtration Rate 7 (60-); Glucose, Blood 85 mg/dL (70-99); Phosphorus, Blood 8.5 mg/dL (2.5-4.9); Potassium, Blood 6.1 mmol/L (3.5-5.5); Sodium, Blood 130 mmol/L (136-145)
--- NOTE | 2022-05-23 08:48 | NUR ---
PT BROUGHT FROM MEDICAL FLOOR IN [facility] FOR PERMACATH PLACEMENT. NPO STATUS CONFIRMED. PT IS ON TELE. OLD SCAB AND BANDAID ON RIGHT UPPER CHEST. FISTULA IN LEFT UPPER ARM. POWER GLIDE IN RIGHT UPPER ARM.
--- NOTE | 2022-05-23 10:14 | NUR ---
PT OUT OF ROOM TO DAY SURGERY APROX. @9220
--- NOTE | 2022-05-23 10:24 | NUR ---
NOTIFIED PROVIDER OF POTASSIUM DRAW LEVEL AT 0900 ORDERED
--- NOTE | 2022-05-23 11:23 | NUR ---
ORDER REC'D FOR VENOUS STUDY. CONTACTED US DEPT REGARDING URGENT STATUS. PROCEDURE WILL BE DONE IN PTS ROOM PER EMERGENCY DEPARTMENT RN
--- NOTE | 2022-05-23 12:42 | NUR ---
SPOKE WITH REPORT PRELIMINARY FINDINGS OF [employer], SEE EMAR. DR HOUSTON'D ADVANCING DIET AND GIVING MEDICATIONS SCHEDULED VIS TELPHONE.
[2022-05-23 14:04] LABS: International Normalized Ratio 1.98; Prothrombin Time Results 19.9 Sec (9.7-11.5)
--- NOTE | 2022-05-23 18:20 | NUR ---
SHIFT SUMMARY- PT TO PROCEDURE FOR MOST OF SHIFT. P0T RETURNED FOR SMALL PORTION OF DAY TO GO DIALYSIS. PT BACK IN ROOM AROUND @1630. PT APPETITE OK, SOME GAS NOTED, TREATED PER EMAR. NO NAUSEA REPORTED. PT FEELING BETTER AND EATING MORE AFTER PAIN MANAGEMENT, SEE EMAR. SOME DRAINAGE FROM PORT INCISION, GAUZE IN PLACE. REMOVED PRIOR TO SHIFT CHANGE CLOT IN PLACE, NO MORE SEEPING SEEN. PT RESTING COMFORTABLY WITH CALL LIGHT IN REACH.
--- NOTE | 2022-05-23 22:34 | NUR ---
HEPARIN STARTED AT THIS TIME PER EMAR. PATIENT IS POST-IJ DIALYSIS PLACEMENT AND MD FOUND DVT DURING THE PROCEDURE.
--- NOTE | 2022-05-24 05:23 | NUR ---
SHIFT SUMMARY: PATIENT VSS, DENIES SOB/N/V/D OR CHEST PAIN. PERMACATH SITE C/D/I, NO INFLAMMATION. HEPARIN INFUSING PER PHARMACY R/T DVT FOUND DURING PERMATCATH PROCEDURE. MEDICATED PER EMAR. NO ADVERSE EVENTS THIS SHIFT. PATIENT IS PLEASANT AND COOPERATIVE WITH CARE. BED LOW WITH CALL LIGHT IN REACH. WILL CONTINUE TO MONITOR AND REPORT TO ONCOMING RN.
[2022-05-24 05:50] LABS: Hematocrit 29.4 % (33.0-51.0); Hemoglobin 8.8 g/dL (11.5-16.0)
[2022-05-24 06:14] LABS: Albumin, Blood 2.1 g/dL (3.4-5.0); Anion Gap 13 mmol/L (6-16); Blood Urea Nitrogen 71 mg/dL (8-24); Bun/Creatinine Ratio 13.5 (12.0-20.0); CO2, Blood 30 mmol/L (21-32); Calcium, Blood 9.9 mg/dL (8.5-10.1); Chloride, Blood 92 mmol/L (98-108); Creatinine, Blood 5.26 mg/dL (0.40-1.00); Glomerular Filtration Rate 9 (60-); Glucose, Blood 83 mg/dL (70-99); Magnesium, Blood 2.3 mg/dL (1.6-2.4); Phosphorus, Blood 7.8 mg/dL (2.5-4.9); Potassium, Blood 4.7 mmol/L (3.5-5.5); Sodium, Blood 135 mmol/L (136-145)
[2022-05-24] MEDS ORDERED: ELIQUIS5 M2 PO ×2 (12:01)
[2022-05-24] MEDS ORDERED: Bumetanide2 MG PO ×2 (12:01)
[2022-05-24] MEDS ORDERED: CEFAZOLIN2 GM/50 M3 IV ×2 (12:04)
[2022-05-24] MEDS ORDERED: VISBIOME 112.51 EACH PO ×2 (12:07)
--- NOTE | 2022-05-24 14:44 | NUR ---
DISCHAGRE NOTE PT IV REMOVED AND PRESSURE HELD. DISCHAGRE INSTRUCTIONS GONE OVER, MEDICATIONS EXPLAINED, AND DIRECTIONS GIVEN TO OUTPT ABX CLINIC. PT WAS EAGER TO DRIVE HOME HERSELF. WILL BE FOLLOWED HOME BY A FRIEND. PT TAKEN OUT BY A WHEELCHAIR AT 1430
== END 2022-05-24 14:28 | disposition home or self-care (01) | DRG 314 ==
LOC: ER 08:42 → MEDS 08:43
PROVIDERS: Internal Medicine; Internal Medicine Nephrology; Student in an Organized Health Care Education/Training Program; Surgery; ADMIT Family Medicine
PROC: 05PYX3Z Removal of Infusion Device from Upper Vein, External Approach (ICD-10-PCS; 2022-05-19)
PROC: 5A1D70Z Performance of Urinary Filtration, Intermittent, Less than 6 Hours Per Day (ICD-10-PCS; principal; 2022-05-20)
DX: T80.211A Bloodstream infection due to central venous catheter, initial encounter (principal); A41.01 Sepsis due to Methicillin susceptible Staphylococcus aureus; N18.6 End stage renal disease; I13.2 Hypertensive heart and chronic kidney disease with heart failure and with stage 5 chronic kidney disease, or end stage renal disease; I82.621 Acute embolism and thrombosis of deep veins of right upper extremity; E87.1 Hypo-osmolality and hyponatremia; J98.11 Atelectasis; I50.22 Chronic systolic (congestive) heart failure; R18.8 Other ascites; D63.8 Anemia in other chronic diseases classified elsewhere; R87.5 Abnormal microbiological findings in specimens from female genital organs; E83.39 Other disorders of phosphorus metabolism; R05.9 Cough, unspecified; L98.9 Disorder of the skin and subcutaneous tissue, unspecified; Z88.0 Allergy status to penicillin; Z88.8 Allergy status to other drugs, medicaments and biological substances; Z88.2 Allergy status to sulfonamides; I11.0 Hypertensive heart disease with heart failure; Z98.890 Other specified postprocedural states; J45.909 Unspecified asthma, uncomplicated; E88.09 Other disorders of plasma-protein metabolism, not elsewhere classified; Z87.442 Personal history of urinary calculi
CPT/HCPCS: 36415; 71045; 71260; 77001; 80048; 80069; 80202; 82947; 83605; 83735; 84132; 85014; 85018; 85025; 85520; 85610; 85730; 87040; 93308; 93312; 93321; 93325; 93971; 96365; 96372; 96375; 99284-25; A9270; C1750; G0378; J0690; J0881; J1100; J1644; J1815; J2250; J2405; J2704; J2795; J3010; J3370; J7030; J7070; Q9967; U0004

== ENCOUNTER 2022-05-26 14:16 | Day surgery (SDC) | payer MEDICARE, OTHER ==
[~2022-05-26 14:16] MED LIST changes: +Bumetanide2 MG PO; +CEFAZOLIN2 GM/50 M3 IV; +CLOBETASOL EMOL15 G1 TOP; +Celexa20 MG PO; +ELIQUIS5 M2 PO
== END 2022-05-26 16:00 | disposition home or self-care (01) ==
LOC: ATC 14:16
DX: T80.211A Bloodstream infection due to central venous catheter, initial encounter (principal); B95.61 Methicillin susceptible Staphylococcus aureus infection as the cause of diseases classified elsewhere; I12.0 Hypertensive chronic kidney disease with stage 5 chronic kidney disease or end stage renal disease; N18.6 End stage renal disease; Z99.2 Dependence on renal dialysis; J45.909 Unspecified asthma, uncomplicated; Z88.0 Allergy status to penicillin; Z88.2 Allergy status to sulfonamides; Z88.8 Allergy status to other drugs, medicaments and biological substances; E87.1 Hypo-osmolality and hyponatremia; D63.1 Anemia in chronic kidney disease
CPT/HCPCS: 96374; C1751; J0690

== ENCOUNTER 2022-05-27 02:16 | Day surgery (SDC) | payer MEDICARE, OTHER | END 2022-05-27 14:20 | disposition home or self-care (01) | LOC: ATC 02:16 | DX: R78.81 Bacteremia (principal); B95.61 Methicillin susceptible Staphylococcus aureus infection as the cause of diseases classified elsewhere; T80.219A Unspecified infection due to central venous catheter, initial encounter; I12.0 Hypertensive chronic kidney disease with stage 5 chronic kidney disease or end stage renal disease; N18.6 End stage renal disease; D63.1 Anemia in chronic kidney disease; J45.909 Unspecified asthma, uncomplicated | CPT/HCPCS: 36569; 96374; C1751; J0690 ==

== ENCOUNTER 2022-05-28 14:32 | Emergency (ER) | payer MEDICARE, OTHER ==
[~2022-05-28] VITALS: Ht 175.3 cm; Wt 59.0 kg
[2022-05-28 17:30] LABS: BASOPHILS ABSOLUTE AUTO 0.04 K/mm3 (0.00-0.23); BASOPHILS PERCENT AUTO 0 % (0-2); EOSINOPHILS ABSOLUTE AUTO 0.11 K/mm3 (0.00-0.68); EOSINOPHILS PERCENT AUTO 1 % (0-6); Hematocrit 30.8 % (33.0-51.0); Hemoglobin 9.5 g/dL (11.5-16.0); IMMATURE GRAN ABSOLUTE AUTO 0.04 K/mm3 (0.00-0.10); IMMATURE GRAN PERCENT AUTO 0 % (0-1); LYMPHOCYTES ABSOLUTE AUTO 0.46 K/mm3 (0.84-5.20); LYMPHOCYTES PERCENT AUTO 4 % (21-46); MONOCYTES ABSOLUTE AUTO 0.38 K/mm3 (0.16-1.47); MONOCYTES PERCENT AUTO 4 % (4-13); Mean Corpuscular HGB 30.4 pg (26.0-34.0); Mean Corpuscular HGB Conc 30.8 g/dL (31.5-36.5); Mean Corpuscular Volume 98 fL (80-100); NEUTROPHILS ABSOLUTE AUTO 9.61 K/mm3 (1.96-9.15); NEUTROPHILS PERCENT AUTO 90 % (41-73); Platelet Count 197 K/mm3 (150-400); RDW Coefficient Variation 19.1 % (11.7-14.2); RDW Standard Deviation 69.4 fL (35.1-46.3); Red Blood Cell Count 3.13 M/mm3 (3.80-5.20); White Blood Cell Count 10.64 K/mm3 (4.00-11.30)
[2022-05-28 17:56] LABS: Alanine Aminotransfer (ALT/SGP 6 U/L (12-78); Albumin, Blood 2.2 g/dL (3.4-5.0); Albumin/Globulin Ratio 0.4 (0.8-1.8); Alk Phos 98 U/L (50-136); Anion Gap 5 mmol/L (6-16); Aspartate Aminotrans (AST/SGOT <3 U/L (12-37); Bilirubin, Total 0.5 mg/dL (0.1-1.0); Blood Urea Nitrogen 40 mg/dL (8-24); CO2, Blood 36 mmol/L (21-32); Calcium, Blood 10.2 mg/dL (8.5-10.1); Chloride, Blood 97 mmol/L (98-108); Creatinine, Blood 3.34 mg/dL (0.40-1.00); Globulin, Blood 4.9 g/dL (2.2-4.0); Glomerular Filtration Rate 16 (60-); Glucose, Blood 166 mg/dL (70-99); Potassium, Blood 3.4 mmol/L (3.5-5.5); Sodium, Blood 138 mmol/L (136-145); Total Protein, Blood 7.1 g/dL (6.4-8.2)
== END 2022-05-28 21:35 | disposition home or self-care (01) ==
LOC: ER 14:32
PROVIDERS: Physician Assistant
DX: L02.414 Cutaneous abscess of left upper limb (principal); I12.0 Hypertensive chronic kidney disease with stage 5 chronic kidney disease or end stage renal disease; N18.6 End stage renal disease; Z88.0 Allergy status to penicillin; Z88.2 Allergy status to sulfonamides; Z79.899 Other long term (current) drug therapy
CPT/HCPCS: 10060; 76882; 80053; 85025; 99284-25

== ENCOUNTER 2022-05-29 00:24 | Day surgery (SDC) | payer MEDICARE, OTHER ==
--- NOTE | 2022-05-29 16:02 | NUR ---
PT ARRIVED IN [facility], THIS RN IMMEDIATELY NOTICED LIZY WRAP AROUND RIGHT ARM AND THE ARM APPEARING TO BE DARKER IN COLOR AND EXTREMELY SWOLLEN, GOT PT SETTLED IN ROOM AND FELT PTS ARM AND IT IS COOL TO TOUCH, PT STATES THAT IT IS SLIGHTLY NUMB AND WENT TO ER LAST NIGHT REGARDING THE SWELLING IN LEFT ARM (FISTULA) AND STATES THAT HER PICC LINE WAS BLEEDING WHEN SHE WENT INTO THE ER. THIS RN TOOK LIZY WRAP OFF THAT THE PT APPARENTLY HAD PUT ON TO TRY TO STOP THE BLEEDING AND DRESSING IS SATURATED WITH BLOOD. CALLED DALIA VÁZQUEZ RN IN ROOM TO ALSO SEE. REDRESSED PICC LINE, NO EVIDENCE WHERE THE BLOOD IS COMING FROM, SITE APPEARS TO NOT BE BLEEDING BUT ARM IS SWOLLEN FROM PICC SITE DOWN TO FINGER TIPS, ARM IS COOL DESCRIBED AND SLIGHTLY BLUE IN COLOR. CALLED MIGUEL ANGEL TO SEE IF WE COULD POSSIBLY GET A STAT DOPPLER STUDY FOR SUSPECTED CLOT, HE STATES HE SENT PT TO ER LAST NIGHT BECAUSE OF HIS CONCERN OF A POSSIBLE THROBIS, AND HE WANTS THE PT TO GO BACK TO ER. CALLED ER AND REPORTED OFF TO SHRUTHI.
== END 2022-05-29 15:00 | disposition home or self-care (01) ==
LOC: ATC 00:24
DX: R78.81 Bacteremia (principal); B95.61 Methicillin susceptible Staphylococcus aureus infection as the cause of diseases classified elsewhere; T80.219A Unspecified infection due to central venous catheter, initial encounter; I12.0 Hypertensive chronic kidney disease with stage 5 chronic kidney disease or end stage renal disease; N18.6 End stage renal disease; D63.1 Anemia in chronic kidney disease; J45.909 Unspecified asthma, uncomplicated; Z88.0 Allergy status to penicillin; Z88.2 Allergy status to sulfonamides; Z88.8 Allergy status to other drugs, medicaments and biological substances
CPT/HCPCS: J0690

== ENCOUNTER 2022-05-29 15:09 | Emergency (ER) | payer MEDICARE, OTHER ==
[~2022-05-29] VITALS: Ht 175.3 cm; Wt 59.0 kg
== END 2022-05-29 17:14 | disposition home or self-care (01) ==
LOC: ER 15:09
DX: R60.0 Localized edema (principal); I12.0 Hypertensive chronic kidney disease with stage 5 chronic kidney disease or end stage renal disease; N18.6 End stage renal disease; Z88.0 Allergy status to penicillin; Z88.2 Allergy status to sulfonamides; Z88.8 Allergy status to other drugs, medicaments and biological substances; Z91.09 Other allergy status, other than to drugs and biological substances; Z79.899 Other long term (current) drug therapy; Z79.02 Long term (current) use of antithrombotics/antiplatelets; Z99.2 Dependence on renal dialysis
CPT/HCPCS: 99282

== ENCOUNTER 2022-05-30 01:46 | Day surgery (SDC) | payer MEDICARE, OTHER | END 2022-05-30 14:28 | disposition home or self-care (01) | LOC: ATC 01:46 | DX: T80.211A Bloodstream infection due to central venous catheter, initial encounter (principal); B95.61 Methicillin susceptible Staphylococcus aureus infection as the cause of diseases classified elsewhere; I12.0 Hypertensive chronic kidney disease with stage 5 chronic kidney disease or end stage renal disease; N18.6 End stage renal disease; D63.1 Anemia in chronic kidney disease; J45.909 Unspecified asthma, uncomplicated; Y71.1 Therapeutic (nonsurgical) and rehabilitative cardiovascular devices associated with adverse incidents; Z88.0 Allergy status to penicillin; Z99.2 Dependence on renal dialysis; Z88.8 Allergy status to other drugs, medicaments and biological substances; Z88.2 Allergy status to sulfonamides | CPT/HCPCS: J0690 ==

== ENCOUNTER 2022-05-31 00:10 | Day surgery (SDC) | payer MEDICARE, OTHER | END 2022-05-31 14:25 | disposition home or self-care (01) | LOC: ATC 00:10 | DX: T80.211A Bloodstream infection due to central venous catheter, initial encounter (principal); B95.61 Methicillin susceptible Staphylococcus aureus infection as the cause of diseases classified elsewhere; I12.0 Hypertensive chronic kidney disease with stage 5 chronic kidney disease or end stage renal disease; N18.6 End stage renal disease; D63.1 Anemia in chronic kidney disease; J45.909 Unspecified asthma, uncomplicated; Z99.2 Dependence on renal dialysis; Z88.0 Allergy status to penicillin; Z88.2 Allergy status to sulfonamides; Z88.8 Allergy status to other drugs, medicaments and biological substances | CPT/HCPCS: J0690 ==

== ENCOUNTER 2022-06-02 00:56 | Day surgery (SDC) | payer MEDICARE, OTHER | END 2022-06-02 14:10 | disposition home or self-care (01) | LOC: ATC 00:56 | DX: T80.211A Bloodstream infection due to central venous catheter, initial encounter (principal); B95.61 Methicillin susceptible Staphylococcus aureus infection as the cause of diseases classified elsewhere; I12.0 Hypertensive chronic kidney disease with stage 5 chronic kidney disease or end stage renal disease; N18.6 End stage renal disease; D63.1 Anemia in chronic kidney disease; J45.909 Unspecified asthma, uncomplicated; Z88.0 Allergy status to penicillin; Z88.2 Allergy status to sulfonamides; Z88.8 Allergy status to other drugs, medicaments and biological substances | CPT/HCPCS: J0690 ==

== ENCOUNTER 2022-06-03 00:15 | Day surgery (SDC) | payer MEDICARE, OTHER | END 2022-06-03 14:40 | disposition home or self-care (01) | LOC: ATC 00:15 | DX: T80.211A Bloodstream infection due to central venous catheter, initial encounter (principal); R78.81 Bacteremia; B95.61 Methicillin susceptible Staphylococcus aureus infection as the cause of diseases classified elsewhere; I12.0 Hypertensive chronic kidney disease with stage 5 chronic kidney disease or end stage renal disease; N18.6 End stage renal disease; J45.909 Unspecified asthma, uncomplicated; Y71.1 Therapeutic (nonsurgical) and rehabilitative cardiovascular devices associated with adverse incidents; Z99.2 Dependence on renal dialysis; Z88.0 Allergy status to penicillin; Z88.8 Allergy status to other drugs, medicaments and biological substances; Z88.2 Allergy status to sulfonamides | CPT/HCPCS: J0690 ==

== ENCOUNTER 2022-06-05 01:58 | Day surgery (SDC) | payer MEDICARE, OTHER | END 2022-06-05 14:38 | disposition home or self-care (01) | LOC: ATC 01:58 | DX: T80.211A Bloodstream infection due to central venous catheter, initial encounter (principal); R78.81 Bacteremia; Z88.0 Allergy status to penicillin; Z88.2 Allergy status to sulfonamides; Z88.8 Allergy status to other drugs, medicaments and biological substances; N18.6 End stage renal disease; I12.0 Hypertensive chronic kidney disease with stage 5 chronic kidney disease or end stage renal disease; J45.909 Unspecified asthma, uncomplicated; D63.1 Anemia in chronic kidney disease | CPT/HCPCS: J0690 ==

== ENCOUNTER 2022-06-06 04:04 | Day surgery (SDC) | payer MEDICARE, OTHER | END 2022-06-06 14:32 | disposition home or self-care (01) | LOC: ATC 04:04 | DX: T80.211A Bloodstream infection due to central venous catheter, initial encounter (principal); B95.61 Methicillin susceptible Staphylococcus aureus infection as the cause of diseases classified elsewhere; I12.0 Hypertensive chronic kidney disease with stage 5 chronic kidney disease or end stage renal disease; N18.6 End stage renal disease; D63.1 Anemia in chronic kidney disease; J45.909 Unspecified asthma, uncomplicated; Z88.0 Allergy status to penicillin; Z88.2 Allergy status to sulfonamides; Z88.8 Allergy status to other drugs, medicaments and biological substances | CPT/HCPCS: J0690 ==

== ENCOUNTER 2022-06-09 00:09 | Day surgery (SDC) | payer MEDICARE, OTHER | END 2022-06-09 13:50 | disposition home or self-care (01) | LOC: ATC 00:09 | DX: T80.211A Bloodstream infection due to central venous catheter, initial encounter (principal); N18.6 End stage renal disease; Z99.2 Dependence on renal dialysis; I12.0 Hypertensive chronic kidney disease with stage 5 chronic kidney disease or end stage renal disease; J45.909 Unspecified asthma, uncomplicated | CPT/HCPCS: J0690 ==

== ENCOUNTER 2022-06-10 02:06 | Day surgery (SDC) | payer MEDICARE, OTHER | END 2022-06-10 13:43 | disposition home or self-care (01) | LOC: ATC 02:06 | DX: T80.211A Bloodstream infection due to central venous catheter, initial encounter (principal); B95.61 Methicillin susceptible Staphylococcus aureus infection as the cause of diseases classified elsewhere; I12.0 Hypertensive chronic kidney disease with stage 5 chronic kidney disease or end stage renal disease; N18.6 End stage renal disease; D63.1 Anemia in chronic kidney disease; J45.909 Unspecified asthma, uncomplicated; Z88.0 Allergy status to penicillin; Z88.2 Allergy status to sulfonamides; Z88.8 Allergy status to other drugs, medicaments and biological substances | CPT/HCPCS: J0690 ==

== ENCOUNTER 2022-06-12 02:44 | Day surgery (SDC) | payer MEDICARE, OTHER | END 2022-06-12 14:05 | disposition home or self-care (01) | LOC: ATC 02:44 | DX: T80.211A Bloodstream infection due to central venous catheter, initial encounter (principal); B95.61 Methicillin susceptible Staphylococcus aureus infection as the cause of diseases classified elsewhere; I12.0 Hypertensive chronic kidney disease with stage 5 chronic kidney disease or end stage renal disease; N18.6 End stage renal disease; J45.909 Unspecified asthma, uncomplicated; Y71.8 Miscellaneous cardiovascular devices associated with adverse incidents, not elsewhere classified; Z99.2 Dependence on renal dialysis | CPT/HCPCS: J0690 ==

== ENCOUNTER 2022-06-13 02:19 | Day surgery (SDC) | payer MEDICARE, OTHER ==
--- NOTE | 2022-06-13 16:05 | NUR ---
PICC LINE: PICC LINE CONTINUES TO LEAK FLUID, APPEARS BODY FLUID, POSSIBLY FROM PTS EDEMA, FLUSHES WELL, DRAWS BLOOD WELL, PT IS VERY HARD TO GET IV ACCESS SO WE WILL CONTINUE TO MONITOR FOR ANY SIGNS AND SYMPTOMS OF INFECTION. THIS RN COULD SMELL A PECULIAR SMELL BUT ASKED YUNIEL RN TO COME IN AND SHE COULD NOT SMELL ANYTHING. WILL CONTINUE TO MONITOR
== END 2022-06-13 14:40 | disposition home or self-care (01) ==
LOC: ATC 02:19
DX: T80.211A Bloodstream infection due to central venous catheter, initial encounter (principal); R78.81 Bacteremia; B95.61 Methicillin susceptible Staphylococcus aureus infection as the cause of diseases classified elsewhere; I12.0 Hypertensive chronic kidney disease with stage 5 chronic kidney disease or end stage renal disease; N18.6 End stage renal disease; J45.909 Unspecified asthma, uncomplicated; D63.1 Anemia in chronic kidney disease; Y71.1 Therapeutic (nonsurgical) and rehabilitative cardiovascular devices associated with adverse incidents; Z99.2 Dependence on renal dialysis; Z88.0 Allergy status to penicillin; Z88.8 Allergy status to other drugs, medicaments and biological substances; Z88.2 Allergy status to sulfonamides
CPT/HCPCS: J0690

== ENCOUNTER 2022-06-14 01:09 | Day surgery (SDC) | payer MEDICARE, OTHER ==
--- NOTE | 2022-06-14 15:32 | NUR ---
PT ALERT ORIENTED AND SHOWING NOW SIGNS OF BLOOD PRESSURE DISTRESS. UNABLE TO GET BP READING ON MACHINE, PT DECLINED RECHECK FOR MANUAL BP. PT COMPLAINS OF NO SYMPTOMS.
== END 2022-06-14 15:30 | disposition home or self-care (01) ==
LOC: ATC 01:09
DX: T80.211A Bloodstream infection due to central venous catheter, initial encounter (principal); N18.6 End stage renal disease; Z99.2 Dependence on renal dialysis; I12.0 Hypertensive chronic kidney disease with stage 5 chronic kidney disease or end stage renal disease; E87.1 Hypo-osmolality and hyponatremia; D63.1 Anemia in chronic kidney disease; R78.81 Bacteremia
CPT/HCPCS: J0690

== ENCOUNTER 2022-06-16 00:15 | Day surgery (SDC) | payer MEDICARE, OTHER | END 2022-06-16 22:41 | disposition home or self-care (01) | LOC: ATC 00:15 | DX: T80.211A Bloodstream infection due to central venous catheter, initial encounter (principal); B95.61 Methicillin susceptible Staphylococcus aureus infection as the cause of diseases classified elsewhere; J45.909 Unspecified asthma, uncomplicated; I12.0 Hypertensive chronic kidney disease with stage 5 chronic kidney disease or end stage renal disease; N18.6 End stage renal disease; D63.1 Anemia in chronic kidney disease; Z99.2 Dependence on renal dialysis; Z88.0 Allergy status to penicillin; Z88.2 Allergy status to sulfonamides; Z88.8 Allergy status to other drugs, medicaments and biological substances | CPT/HCPCS: J0690 ==

== ENCOUNTER 2022-06-19 01:31 | Day surgery (SDC) | payer MEDICARE, OTHER | END 2022-06-19 15:24 | disposition home or self-care (01) | LOC: ATC 01:31 | DX: T80.211A Bloodstream infection due to central venous catheter, initial encounter (principal); R78.81 Bacteremia; N18.6 End stage renal disease; Z99.2 Dependence on renal dialysis; D63.1 Anemia in chronic kidney disease; E87.1 Hypo-osmolality and hyponatremia; I12.0 Hypertensive chronic kidney disease with stage 5 chronic kidney disease or end stage renal disease | CPT/HCPCS: 96374; J0690 ==

== ENCOUNTER 2022-06-20 08:32 | Day surgery (SDC) | payer MEDICARE, OTHER | END 2022-06-20 15:10 | disposition home or self-care (01) | LOC: ATC 08:32 | DX: T80.211A Bloodstream infection due to central venous catheter, initial encounter (principal); N18.6 End stage renal disease; Z99.2 Dependence on renal dialysis; E87.1 Hypo-osmolality and hyponatremia; D63.1 Anemia in chronic kidney disease; I12.0 Hypertensive chronic kidney disease with stage 5 chronic kidney disease or end stage renal disease | CPT/HCPCS: 96374; J0690 ==

== ENCOUNTER 2022-06-21 08:39 | Day surgery (SDC) | payer MEDICARE, OTHER | END 2022-06-21 23:30 | disposition home or self-care (01) | LOC: ATC 08:39 | DX: T80.211A Bloodstream infection due to central venous catheter, initial encounter (principal); R78.81 Bacteremia; B95.61 Methicillin susceptible Staphylococcus aureus infection as the cause of diseases classified elsewhere; I12.0 Hypertensive chronic kidney disease with stage 5 chronic kidney disease or end stage renal disease; N18.6 End stage renal disease; D63.1 Anemia in chronic kidney disease; J45.909 Unspecified asthma, uncomplicated; Z99.2 Dependence on renal dialysis; Z88.0 Allergy status to penicillin; Z88.8 Allergy status to other drugs, medicaments and biological substances; Z88.2 Allergy status to sulfonamides | CPT/HCPCS: J0690 ==

== ENCOUNTER 2022-06-25 18:43 | Inpatient (IN) | payer MEDICARE, OTHER ==
[~2022-06-25] VITALS: Ht 175.3 cm; Wt 55.9 kg
[2022-06-25 21:11] LABS: BASOPHILS ABSOLUTE AUTO 0.01 K/mm3 (0.00-0.23); BASOPHILS PERCENT AUTO 0 % (0-2); EOSINOPHILS PERCENT AUTO 0 % (0-6); Hematocrit 37.6 % (33.0-51.0); Hemoglobin 11.6 g/dL (11.5-16.0); IMMATURE GRAN ABSOLUTE AUTO 0.06 K/mm3 (0.00-0.10); IMMATURE GRAN PERCENT AUTO 1 % (0-1); LYMPHOCYTES ABSOLUTE AUTO 0.36 K/mm3 (0.84-5.20); LYMPHOCYTES PERCENT AUTO 4 % (21-46); MONOCYTES PERCENT AUTO 7 % (4-13); Mean Corpuscular HGB 31.1 pg (26.0-34.0); Mean Corpuscular HGB Conc 30.9 g/dL (31.5-36.5); Mean Corpuscular Volume 101 fL (80-100); Mean Platelet Volume 12.5 fL (9.1-12.4); NEUTROPHILS ABSOLUTE AUTO 8.69 K/mm3 (1.96-9.15); NEUTROPHILS PERCENT AUTO 89 % (41-73); NRBC ABSOLUTE 0.02 K/mm3 (0.00-0.02); NRBC Auto 0.2 /100 WBC (0.0-0.2); Platelet Count 158 K/mm3 (150-400); RDW Coefficient Variation 20.9 % (11.7-14.2); RDW Standard Deviation 72.1 fL (35.1-46.3); Red Blood Cell Count 3.73 M/mm3 (3.80-5.20); White Blood Cell Count 9.82 K/mm3 (4.00-11.30)
[2022-06-25 21:46] LABS: Magnesium, Blood 2.3 mg/dL (1.6-2.4)
[2022-06-25 21:47] LABS: Thyroid Stimulating Hormone 23.7 uIU/mL (0.360-4.800)
[2022-06-25 21:53] LABS: Influenza A, PCR NEGATIVE (NEGATIVE); Influenza B, PCR NEGATIVE (NEGATIVE); Resp Syncytial Virus, PCR NEGATIVE (NEGATIVE); SARS-Cov-2 (COVID-19) PCR, MMC NEGATIVE (NEGATIVE)
[2022-06-25 21:55] LABS: Albumin, Blood 2.4 g/dL (3.4-5.0); Albumin/Globulin Ratio 0.5 (0.8-1.8); Bilirubin, Total 0.5 mg/dL (0.1-1.0); Bun/Creatinine Ratio 17.2 (12.0-20.0); Calcium, Blood 9.3 mg/dL (8.5-10.1); Creatinine, Blood 8.38 mg/dL (0.40-1.00); Globulin, Blood 4.5 g/dL (2.2-4.0); Total Protein, Blood 6.9 g/dL (6.4-8.2)
--- NOTE | 2022-06-26 00:01 | NUR ---
NON-ROUTINE HOURS, STAT HEMODIALYSIS ORDERED BY DR MICHELLE FOR CHRONIC HD PATIENT WITH APPARENT MULTIPLE MISSED OUTPATIENT DIALYSIS APPOINTMENTS. SERUM K+ IS 8.0 UPON ADMIT. PT TREATED IN ER DUE LACK OF IMMEDIATE ROOM AVAILABILITY ON FLOOR. PT TO BE TRANSFERED TO ICU UPON COMPLETION OF HD.
[2022-06-26 04:45] LABS: BASOPHILS ABSOLUTE AUTO 0.01 K/mm3 (0.00-0.23); BASOPHILS PERCENT AUTO 0 % (0-2); EOSINOPHILS ABSOLUTE AUTO 0.01 K/mm3 (0.00-0.68); EOSINOPHILS PERCENT AUTO 0 % (0-6); Hematocrit 38.5 % (33.0-51.0); IMMATURE GRAN ABSOLUTE AUTO 0.07 K/mm3 (0.00-0.10); IMMATURE GRAN PERCENT AUTO 1 % (0-1); LYMPHOCYTES ABSOLUTE AUTO 0.36 K/mm3 (0.84-5.20); LYMPHOCYTES PERCENT AUTO 3 % (21-46); MONOCYTES ABSOLUTE AUTO 0.95 K/mm3 (0.16-1.47); MONOCYTES PERCENT AUTO 8 % (4-13); Mean Corpuscular HGB 30.9 pg (26.0-34.0); Mean Corpuscular HGB Conc 31.2 g/dL (31.5-36.5); Mean Corpuscular Volume 99 fL (80-100); NEUTROPHILS ABSOLUTE AUTO 10.61 K/mm3 (1.96-9.15); NEUTROPHILS PERCENT AUTO 88 % (41-73); NRBC ABSOLUTE 0.03 K/mm3 (0.00-0.02); NRBC Auto 0.2 /100 WBC (0.0-0.2); Platelet Count 130 K/mm3 (150-400); RDW Coefficient Variation 21.4 % (11.7-14.2); RDW Standard Deviation 70.8 fL (35.1-46.3); Red Blood Cell Count 3.88 M/mm3 (3.80-5.20); White Blood Cell Count 12.01 K/mm3 (4.00-11.30)
[2022-06-26 04:46] LABS: Mean Platelet Volume 13.2 fL (9.1-12.4)
[2022-06-26 05:33] LABS: Albumin, Blood 2.3 g/dL (3.4-5.0); Anion Gap 13 mmol/L (6-16); Blood Urea Nitrogen 89 mg/dL (8-24); Bun/Creatinine Ratio 15.4 (12.0-20.0); CO2, Blood 28 mmol/L (21-32); Calcium, Blood 9.3 mg/dL (8.5-10.1); Chloride, Blood 97 mmol/L (98-108); Creatinine, Blood 5.77 mg/dL (0.40-1.00); Glomerular Filtration Rate 8 (60-); Glucose, Blood 30 mg/dL (70-99); Phosphorus, Blood 9.7 mg/dL (2.5-4.9); Sodium, Blood 138 mmol/L (136-145)
--- NOTE | 2022-06-26 07:28 | NUR ---
Bedside report received from FELISHA Daniel. The pt appears to be sleeping on her back HOB elevated slightly at 20 degrees, respirations even and unlabored, 12/minute on room air with spo2 98-100%. Skin appears dry, duskly with many scabs on forearms in various stages of healing. She awakens easily, has cough with productive white pink-tinged phlegm which she says is chronic, but the pink tinge is new. CBG 116, IV fluids D5 infusing via PICC line in the RUE at 50 cc/hour.
--- NOTE | 2022-06-26 07:40 | NUR ---
ASUMMED PT CARE FROM RAHUL BAEZA IN ED. PT ARRIVING ON [place], TRANSFERED TO BED VIA SLIDER SHEET. PT IS A&OX3, FORGETFUL AT TIMES. HR SR, NO COMPLAINTS OF CHEST PAIN. O2 SATS > 92% ON RA. OTHER VITAL SIGNS STABLE AT THIS TIME. BLOOD SUGAR FOUND TO BE 23, 1 AMP OF D50 GIVEN WITH GOOD RESULT, BLOOD SUGAR OF 169. STARTED ON D5 GTT PER DR. MICHELLE. CRITICAL LABS THIS A.M. CALLED TO DR. MICHELLE, ORDERS RECEIVED. PT ORIENTTED TO ROOM ON ADMIT. CALL LIGHT IN REACH.
--- NOTE | 2022-06-26 10:41 | NUR ---
0930 PT TAKEN TO DIALYSIS
[2022-06-26 12:06] LABS: Free Thyroxine 0.55 ng/dL (0.70-1.60)
[2022-06-26 12:08] LABS: Triiodothyronine, Free 0.72 pg/mL (2.18-3.98)
--- NOTE | 2022-06-26 12:34 | NUR ---
Pt returned from dialysis, now sitting up on side of bed eating lunch. Has no voiced complaints or concerns/questions at this time.
--- NOTE | 2022-06-26 12:58 | NUR ---
Dr. Browning here, rounding on pt. New orders received. IVF reduced to 30 cc/hour per new order.
--- NOTE | 2022-06-26 15:13 | NUR ---
rounded on the patient. She appears to be sleeping comfortably, lying on her left side. Sophie RN, said that the pt was assisted up to BSC and peripheral IV right hand inadvertently pulled. Pt had a bowel movement and also self-straight catheterized and a small amount of urine came out.
--- NOTE | 2022-06-26 16:48 | NUR ---
Call from [facility] in [facility] regarding pt's covid test. Lito says that pt is going for a fistulagram tomorrow.
[2022-06-27 04:26] LABS: Hemoglobin 12.2 g/dL (11.5-16.0)
[2022-06-27 05:10] LABS: Albumin, Blood 1.9 g/dL (3.4-5.0); Anion Gap 10 mmol/L (6-16); Blood Urea Nitrogen 68 mg/dL (8-24); Bun/Creatinine Ratio 13.9 (12.0-20.0); CO2, Blood 30 mmol/L (21-32); Calcium, Blood 8.9 mg/dL (8.5-10.1); Chloride, Blood 97 mmol/L (98-108); Creatinine, Blood 4.89 mg/dL (0.40-1.00); Glomerular Filtration Rate 10 (60-); Glucose, Blood 95 mg/dL (70-99); Phosphorus, Blood 8.5 mg/dL (2.5-4.9); Potassium, Blood 4.9 mmol/L (3.5-5.5); Sodium, Blood 137 mmol/L (136-145)
--- NOTE | 2022-06-27 10:36 | NUR ---
At 0800 the pt ambulated to the bathroom without a walker or other assistive device. She states that her legs feel a little weak, but that she is otherwise ok. Pt attempted to self straight cath, states that she is unable and thinks that perhaps there is 'too much mucous." EXECUTIVE CHAIRMAN OF THE BOARD did a bladder scan, and it showed 400 she said; however with the ascites I suspect that may not be accurate. I did a straight catheterization and evacuated 25 cc of dark yellow urine with very scant amounts of white mucous matter noted. Pt was then taken to dialysis at 0900.
--- NOTE | 2022-06-27 11:55 | NUR ---
Pt just left for [facility]ulagram in the [facility].
--- NOTE | 2022-06-27 12:45 | NUR ---
Call from Lito in heart center. ATtempt at fistulogram showed that pt has existing stents in the artery, and a hematoma. They were unable to render the fistula usable for dialysis; it will need to be surgically done, per report. Pt is on the way back to PCU soon.
--- NOTE | 2022-06-27 12:58 | NUR ---
Returned from [facility], supine in bed, HOB flat. Malissa dressing to the arterial access site left upper arm. Pt is unarousable. Spo2 89% on room air, RR 16/min, regular and unlabored. B/p 99/61. NOrmal sinus rhythm 67 bpm. CBG is 72. Per heart center, pt received 2 of versed and 50 fentanyl.
--- NOTE | 2022-06-27 14:26 | NUR ---
Pt is still sleepy, but arousable to verbal stimuli. She is also answering questions, but very sleepy.
--- NOTE | 2022-06-27 14:55 | NUR ---
PT AROUSABLE, BUT STILL SLEEPY.
--- NOTE | 2022-06-27 17:07 | NUR ---
Kasia wakes up more easily now, although she falls back to sleep after conversation is over. Spo2 95% on room air. Noted mell dressing to Procedure site proximal to the fistula on the left upper arm is saturated with blood, dark in color. Dressing was removed, noted some oozing which appears to be venous. Pressure held to site for about 3 minutes and it has stopped. Site cleansed with chlorohexidine, sterile mell dressing placed and secured with sterile tegederm dressing over that. PT tolerated well. Vital signs are stable. CBG remains WNL.
[2022-06-28 04:40] LABS: Hematocrit 38.4 % (33.0-51.0); Hemoglobin 12.1 g/dL (11.5-16.0)
[2022-06-28 05:04] LABS: Magnesium, Blood 2.3 mg/dL (1.6-2.4)
--- NOTE | 2022-06-28 05:25 | NUR ---
SHIFT SUMMARY NO ACUTE EVENTS THIS SHIFT. PT ALERT AND ORIENTED X4. AFEBRILE. HR 60-70'S NSR. BP STABLE. ON RA SATS OVER 90%. PT INDEPENDENT FOR ADL'S. FISTULA DRESSING C/D/I. PICC LINE PATENT, DRAWS BLOOD. PT COMPLAINT OF GENERALIZED PAIN. MEDICATED PER EMAR. ASLEEP MOST OF NIGHT. IN BED RESTING WITH CALL ALARM AT SIDE. WILL CONTINUE TO MONITOR UNTIL REPORT GIVEN TO ONCOMING RN
[2022-06-28 06:00] LABS: Albumin, Blood 1.8 g/dL (3.4-5.0); Anion Gap 10 mmol/L (6-16); Blood Urea Nitrogen 67 mg/dL (8-24); CO2, Blood 31 mmol/L (21-32); Calcium, Blood 9.2 mg/dL (8.5-10.1); Chloride, Blood 96 mmol/L (98-108); Creatinine, Blood 4.47 mg/dL (0.40-1.00); Glomerular Filtration Rate 11 (60-); Glucose, Blood 74 mg/dL (70-99); Phosphorus, Blood 8.9 mg/dL (2.5-4.9); Potassium, Blood 4.7 mmol/L (3.5-5.5); Sodium, Blood 137 mmol/L (136-145)
--- NOTE | 2022-06-28 10:31 | NUR ---
MORNING EVENTS THE PT IS SBA W/ FWW TO THE BATHROOM. SHE WORKED WITH OT THIS AM AND HAD N/V SHORTLY AFTER. AN ORDER OF ZOFRAN WAS OBTAINED, AND N/V HAS SUBSIDED. SHE STRAIGHT CATH'S HERSELF AND WAS UNSUCESSFUL THIS AM. ORDERS FOR BLADDER IRRIGATION OBTAINED. DR. SÁNCHEZ WANTS THE PT TO WORK WITH PT/OT AND POSSABLY D/C TODAY. SEE NOTES FOR ANY UPDATES.
[2022-06-28] MEDS ORDERED: LEVSOD75 PO (14:15)
--- NOTE | 2022-06-28 16:59 | NUR ---
PT FINISHED DIALYSIS TODAY AND IS CURRENTLY BEING D/C'D. PICC LINE WAS LEFT INTACT FOR PT'S HOME REGIMEN FOR MEDICATIONS. DRESSING AND CAPS CHANGED. PT WAS WHEELED OUT IN THE WHEELE CHAIR BY MANAGER CONTACT, AND ALL BELONGING SENT HOME WITH THE PT. D/C INSTRUCTIONS HAVE BEEN GONE OVER WITH THE PT AND SISTER KEITH; ALL QUESTIONS WERE ANSWERED. PT D/C @ 6175
== END 2022-06-28 16:55 | disposition home or self-care (01) | DRG 640 ==
LOC: ER 18:43 → ICUW 23:48 → PCU 23:48
PROVIDERS: Emergency Medicine; Family Medicine; Internal Medicine Nephrology; ADMIT Internal Medicine
PROC: B51WYZZ Fluoroscopy of Dialysis Shunt/Fistula using Other Contrast (ICD-10-PCS; principal; 2022-06-27)
PROC: 5A1D70Z Performance of Urinary Filtration, Intermittent, Less than 6 Hours Per Day (ICD-10-PCS; 2022-06-28)
DX: E87.5 Hyperkalemia (principal); N18.6 End stage renal disease; N25.81 Secondary hyperparathyroidism of renal origin; I50.22 Chronic systolic (congestive) heart failure; I13.0 Hypertensive heart and chronic kidney disease with heart failure and stage 1 through stage 4 chronic kidney disease, or unspecified chronic kidney disease; E88.09 Other disorders of plasma-protein metabolism, not elsewhere classified; E83.39 Other disorders of phosphorus metabolism; E16.2 Hypoglycemia, unspecified; D63.1 Anemia in chronic kidney disease; E87.6 Hypokalemia; E03.9 Hypothyroidism, unspecified; Z88.2 Allergy status to sulfonamides; Z88.8 Allergy status to other drugs, medicaments and biological substances; Z79.899 Other long term (current) drug therapy; Z88.0 Allergy status to penicillin; Z99.2 Dependence on renal dialysis; Z98.890 Other specified postprocedural states; Z86.718 Personal history of other venous thrombosis and embolism
CPT/HCPCS: 0241U; 36902; 51700; 51701; 71045; 76937; 80053; 80069; 82947; 83605; 83735; 84439; 84443; 84481; 85014; 85018; 85025; 93005; 93010; 94640; 94664; 97110; 97116; 97162; 97166; 97530; 97535; 99152; 99153; A9270; C1725; C1769; C1894; G0378; J0610; J0690; J1644; J1815; J2250; J2405; J3010; J7030; J7040; J7070; Q9967

== ENCOUNTER 2022-07-04 10:44 | Day surgery (SDC) | payer MEDICARE, OTHER ==
[~2022-07-04 10:44] MED LIST changes: +LEVSOD75 PO
== END 2022-07-04 15:33 | disposition home or self-care (01) ==
LOC: ATC 10:44
DX: T80.211A Bloodstream infection due to central venous catheter, initial encounter (principal); B95.61 Methicillin susceptible Staphylococcus aureus infection as the cause of diseases classified elsewhere; I12.0 Hypertensive chronic kidney disease with stage 5 chronic kidney disease or end stage renal disease; N18.6 End stage renal disease; D63.1 Anemia in chronic kidney disease; J45.909 Unspecified asthma, uncomplicated; Y71.2 Prosthetic and other implants, materials and accessory cardiovascular devices associated with adverse incidents; Z99.2 Dependence on renal dialysis; Z88.0 Allergy status to penicillin; Z88.8 Allergy status to other drugs, medicaments and biological substances; Z88.2 Allergy status to sulfonamides
CPT/HCPCS: 99212

== ENCOUNTER 2022-07-31 13:05 | Observation (INO) | payer MEDICARE, OTHER ==
[~2022-07-31] VITALS: Ht 175.3 cm; Wt 54.2 kg
[2022-07-31 14:32] LABS: Influenza A, PCR NEGATIVE (NEGATIVE); Influenza B, PCR NEGATIVE (NEGATIVE); Resp Syncytial Virus, PCR NEGATIVE (NEGATIVE); SARS-Cov-2 (COVID-19) PCR, MMC NEGATIVE (NEGATIVE)
[2022-07-31 22:09] LABS: BASOPHILS ABSOLUTE AUTO 0.01 K/mm3 (0.00-0.23); BASOPHILS PERCENT AUTO 0 % (0-2); EOSINOPHILS PERCENT AUTO 0 % (0-6); Hematocrit 29.3 % (33.0-51.0); IMMATURE GRAN ABSOLUTE AUTO 0.02 K/mm3 (0.00-0.10); IMMATURE GRAN PERCENT AUTO 0 % (0-1); LYMPHOCYTES ABSOLUTE AUTO 0.35 K/mm3 (0.84-5.20); LYMPHOCYTES PERCENT AUTO 5 % (21-46); MONOCYTES ABSOLUTE AUTO 0.58 K/mm3 (0.16-1.47); MONOCYTES PERCENT AUTO 8 % (4-13); Mean Corpuscular HGB 29.7 pg (26.0-34.0); Mean Corpuscular HGB Conc 30.7 g/dL (31.5-36.5); Mean Corpuscular Volume 97 fL (80-100); Mean Platelet Volume 10.9 fL (9.1-12.4); NEUTROPHILS PERCENT AUTO 87 % (41-73); Platelet Count 254 K/mm3 (150-400); RDW Coefficient Variation 19.5 % (11.7-14.2); RDW Standard Deviation 67.4 fL (35.1-46.3); Red Blood Cell Count 3.03 M/mm3 (3.80-5.20); White Blood Cell Count 7.16 K/mm3 (4.00-11.30)
[2022-07-31 22:55] LABS: Albumin, Blood 2.4 g/dL (3.4-5.0); Albumin/Globulin Ratio 0.5 (0.8-1.8); Bilirubin, Total 0.5 mg/dL (0.1-1.0); Bun/Creatinine Ratio 17.7 (12.0-20.0); Calcium, Blood 10.1 mg/dL (8.5-10.1); Creatinine, Blood 6.67 mg/dL (0.40-1.00); Globulin, Blood 4.9 g/dL (2.2-4.0); Potassium, Blood 7.7 mmol/L (3.5-5.5); Total Protein, Blood 7.3 g/dL (6.4-8.2)
--- NOTE | 2022-08-01 05:46 | NUR ---
SUPERVISOR TAPING SUMMARY PT IS ALERT AND ORIENTED COMMUNICATING APPROPRIATELY W STAFF. PT RECIEVED DIALYSIS AT BEDSIDE THIS SHIFT W NO COMPLICATIONS. PT REPORTING FEELING BETTER AFTER DIALYSIS. BP WNL AND STABLE. TELE SHOWING SR IN THE 80'S THIS SHIFT. PT SLEEPING FOR MOST OF THE NIGHT FOLLOWING DIALYSIS. WILL REPORT TO ONCOMING RN.
[2022-08-01 06:30] LABS: BASOPHILS ABSOLUTE AUTO 0.03 K/mm3 (0.00-0.23); BASOPHILS PERCENT AUTO 1 % (0-2); EOSINOPHILS ABSOLUTE AUTO 0.01 K/mm3 (0.00-0.68); EOSINOPHILS PERCENT AUTO 0 % (0-6); Hemoglobin 8.3 g/dL (11.5-16.0); IMMATURE GRAN ABSOLUTE AUTO 0.02 K/mm3 (0.00-0.10); IMMATURE GRAN PERCENT AUTO 0 % (0-1); LYMPHOCYTES ABSOLUTE AUTO 0.47 K/mm3 (0.84-5.20); LYMPHOCYTES PERCENT AUTO 8 % (21-46); MONOCYTES ABSOLUTE AUTO 0.59 K/mm3 (0.16-1.47); MONOCYTES PERCENT AUTO 10 % (4-13); Mean Corpuscular HGB 29.4 pg (26.0-34.0); Mean Corpuscular HGB Conc 30.7 g/dL (31.5-36.5); Mean Corpuscular Volume 96 fL (80-100); Mean Platelet Volume 10.8 fL (9.1-12.4); NEUTROPHILS ABSOLUTE AUTO 5.06 K/mm3 (1.96-9.15); NEUTROPHILS PERCENT AUTO 82 % (41-73); Platelet Count 204 K/mm3 (150-400); RDW Coefficient Variation 19.5 % (11.7-14.2); RDW Standard Deviation 66.5 fL (35.1-46.3); Red Blood Cell Count 2.82 M/mm3 (3.80-5.20); White Blood Cell Count 6.18 K/mm3 (4.00-11.30)
[2022-08-01 06:40] LABS: Albumin, Blood 2.1 g/dL (3.4-5.0); Albumin/Globulin Ratio 0.5 (0.8-1.8); Bilirubin, Total 0.5 mg/dL (0.1-1.0); Bun/Creatinine Ratio 15.6 (12.0-20.0); Calcium, Blood 9.6 mg/dL (8.5-10.1); Creatinine, Blood 4.37 mg/dL (0.40-1.00); Globulin, Blood 4.4 g/dL (2.2-4.0); Total Protein, Blood 6.5 g/dL (6.4-8.2)
[2022-08-01 06:41] LABS: Potassium, Blood 5.5 mmol/L (3.5-5.5)
--- NOTE | 2022-08-01 08:00 | NUR ---
Pt is alert, forgetful, but pleasant in conversation. Details of recent health, ongoing events, etc are uncertain for the pt. She has difficulty recalling specific details. Potassium level noted 5.5 this morning. Pt assisted minimally to get to BSC to have BM and to self-cath. She states that she does this regularly at home. She is very thin, cachexic, dusky skin, but not having acute nausea/vomiting at this time. States that her heels are sore. STates that she thinks that the wounds were started when she was last hospitalized, but she cannot recall how recent that was. Heel wounds appear to be scabbed over round blisters, with boggy non blachable redness surrounding. She says that it hurts when she stood up to use the BSC.STrength is fairly good; she required very little assistance, denies dizzyness, lightheadedness, and denies any numbness/tingling in her extremities. Occasional cough; pt states that she is coughing up clear sputum. Instructed pt on use of sputum collection container. Dr. Kelby barber at this time.
[2022-08-01 12:28] LABS: Bun/Creatinine Ratio 15.4 (12.0-20.0); Calcium, Blood 9.6 mg/dL (8.5-10.1); Creatinine, Blood 4.73 mg/dL (0.40-1.00); Potassium, Blood 5.9 mmol/L (3.5-5.5)
--- NOTE | 2022-08-01 14:26 | NUR ---
post self cath bladder scan 300 cc. Call to resident, order rec'd to catheterized and irrigate as needed to evacuate obstructing sediment. Three attempts made, fem cath ( size 8), 14 Fr coude, 16 Fr. Each time only very small amount of urine were evacuated and unable to evacuate more than small amounts of sediment/thick yellow secretions. Total amount of urine removed was 150 cc. Post cath bladder scan was >400 cc. Pt is completing dialysis at this time. Pt states she will attempt to self cath again when she can be upright on the bedside commode.
--- NOTE | 2022-08-01 15:08 | NUR ---
OOB with staff standby supervision to bedside commode to self cath at this time.
[2022-08-01] MEDS ORDERED: VISBIOME 112.51 EACH PO (16:56)
[2022-08-01] MEDS ORDERED: LEVFLO500 PO (16:57)
== END 2022-08-01 18:49 | disposition home or self-care (01) ==
LOC: ER 13:05 → ERHOLD 13:06 → PCU 13:06
PROVIDERS: Family Medicine; Student in an Organized Health Care Education/Training Program; ADMIT Internal Medicine
DX: E87.5 Hyperkalemia (principal); I13.2 Hypertensive heart and chronic kidney disease with heart failure and with stage 5 chronic kidney disease, or end stage renal disease; I50.22 Chronic systolic (congestive) heart failure; N18.6 End stage renal disease; E87.1 Hypo-osmolality and hyponatremia; Z99.2 Dependence on renal dialysis; J45.909 Unspecified asthma, uncomplicated; N25.81 Secondary hyperparathyroidism of renal origin; E87.70 Fluid overload, unspecified; D64.9 Anemia, unspecified; R33.9 Retention of urine, unspecified; Z20.822 Contact with and (suspected) exposure to COVID-19
CPT/HCPCS: 0241U; 36415; 51700; 51701; 71046; 80048; 80053; 85025; 87070; 87077; 87186; 87205; 96365; 96372; 96375; A9270; C1751; G0257; G0378; J0610; J0881; J1650; J1815; J1956; J2405; J7050

== ENCOUNTER 2022-08-07 12:39 | Inpatient (IN) | payer MEDICARE, OTHER ==
[~2022-08-07] VITALS: Ht 177.8 cm; Wt 52.4 kg
[2022-08-07 14:15] LABS: BASOPHILS PERCENT AUTO 0 % (0-2); EOSINOPHILS PERCENT AUTO 0 % (0-6); Hematocrit 36.7 % (33.0-51.0); Hemoglobin 11.5 g/dL (11.5-16.0); IMMATURE GRAN ABSOLUTE AUTO 0.02 K/mm3 (0.00-0.10); IMMATURE GRAN PERCENT AUTO 1 % (0-1); LYMPHOCYTES ABSOLUTE AUTO 0.36 K/mm3 (0.84-5.20); LYMPHOCYTES PERCENT AUTO 9 % (21-46); MONOCYTES ABSOLUTE AUTO 0.62 K/mm3 (0.16-1.47); MONOCYTES PERCENT AUTO 15 % (4-13); Mean Corpuscular HGB 30.2 pg (26.0-34.0); Mean Corpuscular HGB Conc 31.3 g/dL (31.5-36.5); Mean Corpuscular Volume 96 fL (80-100); Mean Platelet Volume 12.5 fL (9.1-12.4); NEUTROPHILS ABSOLUTE AUTO 3.21 K/mm3 (1.96-9.15); NEUTROPHILS PERCENT AUTO 76 % (41-73); Platelet Count 121 K/mm3 (150-400); RDW Coefficient Variation 21.2 % (11.7-14.2); Red Blood Cell Count 3.81 M/mm3 (3.80-5.20); White Blood Cell Count 4.21 K/mm3 (4.00-11.30)
[2022-08-07 15:14] LABS: Albumin, Blood 2.5 g/dL (3.4-5.0); Albumin/Globulin Ratio 0.5 (0.8-1.8); Bilirubin, Total 0.7 mg/dL (0.1-1.0); Bun/Creatinine Ratio 21.5 (12.0-20.0); Calcium, Blood 7.9 mg/dL (8.5-10.1); Potassium, Blood 5.4 mmol/L (3.5-5.5); Total Protein, Blood 7.5 g/dL (6.4-8.2)
[2022-08-07 15:46] LABS: Base Excess Venous 2.3 mmol/L; Bicarbonate Venous 26.4 mmol/L (24.0-30.0); PCO2 Venous 35.7 mmHg (38-42); pH Blood Venous 7.47 (7.34-7.37)
[2022-08-07 16:57] LABS: Source, Urine Clean Catch
[2022-08-07 17:01] LABS: Influenza A, PCR NEGATIVE (NEGATIVE); Influenza B, PCR NEGATIVE (NEGATIVE); Resp Syncytial Virus, PCR NEGATIVE (NEGATIVE); SARS-Cov-2 (COVID-19) PCR, MMC NEGATIVE (NEGATIVE)
[2022-08-07 17:07] LABS: Bilirubin, Urine 1+ (Neg); Blood, Urine 5+ (Neg); Glucose Qualitative, Urine Neg (Neg); Ketones, Urine 1+ (Neg); Leukocyte Esterase, Urine 3+ (Neg); Nitrite, Urine Neg (Neg); Protein, Urine 4+ (Neg); Urobilinogen, Urine 2+ (Normal)
[2022-08-07 17:08] LABS: Appearance, Urine Cloudy (Clear); Color, Urine Amber (P-Yellow)
[2022-08-07 17:13] LABS: White Blood Cells, Urine 25-50 /hpf (0-5)
[2022-08-07 17:14] LABS: Bacteria Many /hpf; Hyaline Casts 0-2 /lpf (0-2); Squamous Epithelial Cells Mod /hpf (Few); Transitional Epithelial Cells Few /hpf (0-Rare); WBC Cast 0-2 /lpf (0)
--- NOTE | 2022-08-07 22:39 | NUR ---
ADMIT NOTE 52 YR OLD FEMALE ADMITTED TO FLOOR FROM THE ED WITH DX OF HYPOGLYCEMIA. ED REPORTED BLOOD GLUCOSE LEVEL OF 20 ON ARRIVAL AND AFTER ADMIN D50, INCREASED TO 26, THEN FINALLY BY THE TIME OF TRANSFERRING TO [facility] WAS 78. 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 PT EMP HYPOTHERMIC IN THE ED, WSA 96 DEGREES. WARM BLANKETS APPLIED AND IS NOW 97 DEGREES, BUT SKIN REMAINS COOL TO TOUCH. ROOM TEMP INCREASED. ALERT AND ORIENTED X 4. ORDERS FOR ACCU CHECKS Q 4 HR. ORIENTED TO USE OF CALL LIGHT. AGREES NO GETTING OUT OF BED WITHOUT ASSIST. CALL LIGHT IN REACH. RAILS UP X 3
--- NOTE | 2022-08-07 23:47 | NUR ---
ACCU CHECKS Q 4 HR. 58 NOW, PO APPLE JUICE WITH SUGAR MD VIJI NOTIFIED AND ORDER FOR D50 X 1 NOW OBTAINED. ASYMPTOMATIC. CHARGE NURSE NOTIFIED
--- NOTE | 2022-08-08 02:11 | NUR ---
EARLIER, NAUSEA AND DRY HEAVES. STATED TOOK "ZOFRAN" AT HOME, MD HAD ORDERED IT EARLIER. MED GIVEN. ACCU CHECK 102 AFTER LAST D50 IV GIVEN - SEE DOC FLOW SHEETS. CALMED. SKIN STILL COOL. MORE WARM BLANKETS APPLIED. VOICED FEELING BETTER. THIS WAS ABOUT 15 MIN AGO. AT THIS TIME, COME IN TO SEE PT STARING AT WALL AND NO NOTED BREATHING. RAPID CALLED/ CODE BLUE CALLED. MD ASSESSED PT - SENT TO ICU
[2022-08-08 02:15] LABS: PO2 Arterial 411 mmHg (80-100); pH Blood Arterial 7.35 (7.35-7.45)
--- NOTE | 2022-08-08 02:21 | NUR ---
CALL PLACED TO SISTER: KEITH. WHO WAS NOTIFIED OF PT CONDITION AND HER TRANSFER TO ICU 5. KEITH VOICED SHE WOULD NOTIFY HER SIBLING
[2022-08-08 02:52] LABS: BASOPHILS ABSOLUTE AUTO 0.01 K/mm3 (0.00-0.23); BASOPHILS PERCENT AUTO 0 % (0-2); EOSINOPHILS ABSOLUTE AUTO 0.01 K/mm3 (0.00-0.68); EOSINOPHILS PERCENT AUTO 0 % (0-6); Hematocrit 24.5 % (33.0-51.0); Hemoglobin 7.5 g/dL (11.5-16.0); IMMATURE GRAN ABSOLUTE AUTO 0.14 K/mm3 (0.00-0.10); IMMATURE GRAN PERCENT AUTO 3 % (0-1); LYMPHOCYTES ABSOLUTE AUTO 0.98 K/mm3 (0.84-5.20); LYMPHOCYTES PERCENT AUTO 22 % (21-46); MONOCYTES ABSOLUTE AUTO 0.48 K/mm3 (0.16-1.47); MONOCYTES PERCENT AUTO 11 % (4-13); Mean Corpuscular HGB 30.7 pg (26.0-34.0); Mean Corpuscular HGB Conc 30.6 g/dL (31.5-36.5); Mean Corpuscular Volume 100 fL (80-100); NEUTROPHILS ABSOLUTE AUTO 2.81 K/mm3 (1.96-9.15); NEUTROPHILS PERCENT AUTO 64 % (41-73); NRBC ABSOLUTE 0.04 K/mm3 (0.00-0.02); NRBC Auto 0.9 /100 WBC (0.0-0.2); Platelet Count 53 K/mm3 (150-400); RDW Coefficient Variation 21.2 % (11.7-14.2); Red Blood Cell Count 2.44 M/mm3 (3.80-5.20); White Blood Cell Count 4.43 K/mm3 (4.00-11.30)
--- NOTE | 2022-08-08 02:58 | NUR ---
ASSUMED CARE OF PT AT 0220 PT INTUBATED AND UNRESPONSIVE AT THIS TIME. DR HOOVER, RT IN ROOM AT THIS TIME. 1000 BOLUS NS RUNNING WITH PRESSURE. NO OTHER IV MEDS OR FLUIDS RUNNING AT THIS TIME. NO PULSES FOUND, CPR INITIATED AT 0225 50 MEQ BICARB @0230 CALCIUM G @ 0231 EPI 1MG @0231 GLUCAGON 1 MG @0232 D50 25G @0233 PULSE FOUND AT 0233, CPR DISMISSED. BP 64/20 MAP 29, HR 83 500 BOLUS NS @ 0253. DR HOOVER PUTING IN ART LINE @0300
[2022-08-08 03:22] LABS: Magnesium, Blood 2.4 mg/dL (1.6-2.4)
[2022-08-08 03:27] LABS: Albumin, Blood 1.3 g/dL (3.4-5.0); Albumin/Globulin Ratio 0.4 (0.8-1.8); Bilirubin, Total 0.6 mg/dL (0.1-1.0); Bun/Creatinine Ratio 22.1 (12.0-20.0); Calcium, Blood 7.7 mg/dL (8.5-10.1); Creatinine, Blood 3.84 mg/dL (0.40-1.00); Globulin, Blood 2.9 g/dL (2.2-4.0); Potassium, Blood 5.8 mmol/L (3.5-5.5); Total Protein, Blood 4.2 g/dL (6.4-8.2)
[2022-08-08 04:20] LABS: BASOPHILS PERCENT AUTO 0 % (0-2); EOSINOPHILS PERCENT AUTO 0 % (0-6); Hematocrit 25.2 % (33.0-51.0); Hemoglobin 7.5 g/dL (11.5-16.0); IMMATURE GRAN ABSOLUTE AUTO 0.08 K/mm3 (0.00-0.10); IMMATURE GRAN PERCENT AUTO 2 % (0-1); LYMPHOCYTES ABSOLUTE AUTO 0.22 K/mm3 (0.84-5.20); LYMPHOCYTES PERCENT AUTO 4 % (21-46); MONOCYTES ABSOLUTE AUTO 0.17 K/mm3 (0.16-1.47); MONOCYTES PERCENT AUTO 3 % (4-13); Mean Corpuscular HGB 30.1 pg (26.0-34.0); Mean Corpuscular HGB Conc 29.8 g/dL (31.5-36.5); Mean Corpuscular Volume 101 fL (80-100); Mean Platelet Volume 11.9 fL (9.1-12.4); NEUTROPHILS ABSOLUTE AUTO 4.93 K/mm3 (1.96-9.15); NEUTROPHILS PERCENT AUTO 91 % (41-73); NRBC ABSOLUTE 0.04 K/mm3 (0.00-0.02); NRBC Auto 0.7 /100 WBC (0.0-0.2); Platelet Count 93 K/mm3 (150-400); RDW Coefficient Variation 21.4 % (11.7-14.2); RDW Standard Deviation 78.4 fL (35.1-46.3); Red Blood Cell Count 2.49 M/mm3 (3.80-5.20)
[2022-08-08 04:50] LABS: Albumin, Blood 1.6 g/dL (3.4-5.0); Albumin/Globulin Ratio 0.5 (0.8-1.8); Bilirubin, Total 1.1 mg/dL (0.1-1.0); Bun/Creatinine Ratio 21.3 (12.0-20.0); Calcium, Blood 7.5 mg/dL (8.5-10.1); Creatinine, Blood 4.03 mg/dL (0.40-1.00); Globulin, Blood 3.5 g/dL (2.2-4.0); Potassium, Blood 5.8 mmol/L (3.5-5.5); Total Protein, Blood 5.1 g/dL (6.4-8.2)
--- NOTE | 2022-08-08 05:31 | NUR ---
VENTILATOR TURNED OFF, ALL IV LINES DISCONTINUED. PT ON COMFORT CARE. FAMILY AT BEDSIDE.
--- NOTE | 2022-08-08 06:03 | NUR ---
PT WITHOUT RESPIRATIONS OR PULSE. CONFIRMED WITH SECOND RN. FAMILY AT BEDSIDE AT THIS TIME. AWAITING CLEARANCE FROM NEWS PHOTOGRAPHER.
== END 2022-08-08 09:24 | DRG 637 ==
LOC: ER 12:39 → MEDS 20:42 → ICUE 20:42 → MEDS 20:53 → ICUE 08-08 02:15
PROVIDERS: Emergency Medicine; Internal Medicine; ADMIT Internal Medicine
PROC: 5A12012 Performance of Cardiac Output, Single, Manual (ICD-10-PCS; principal; 2022-08-08)
PROC: 3E033XZ Introduction of Vasopressor into Peripheral Vein, Percutaneous Approach (ICD-10-PCS; 2022-08-08)
PROC: 5A1935Z Respiratory Ventilation, Less than 24 Consecutive Hours (ICD-10-PCS; 2022-08-08)
PROC: 02HV33Z Insertion of Infusion Device into Superior Vena Cava, Percutaneous Approach (ICD-10-PCS; 2022-08-08)
PROC: 5A1D70Z Performance of Urinary Filtration, Intermittent, Less than 6 Hours Per Day (ICD-10-PCS; 2022-08-08)
PROC: 0BH17EZ Insertion of Endotracheal Airway into Trachea, Via Natural or Artificial Opening (ICD-10-PCS; 2022-08-08)
DX: E11.649 Type 2 diabetes mellitus with hypoglycemia without coma (principal); G93.41 Metabolic encephalopathy; E44.0 Moderate protein-calorie malnutrition; I50.22 Chronic systolic (congestive) heart failure; I13.2 Hypertensive heart and chronic kidney disease with heart failure and with stage 5 chronic kidney disease, or end stage renal disease; Z68.1 Body mass index [BMI] 19.9 or less, adult; I42.9 Cardiomyopathy, unspecified; R64 Cachexia; E87.20 Acidosis, unspecified; E87.1 Hypo-osmolality and hyponatremia; Z51.5 Encounter for palliative care; E87.5 Hyperkalemia; I46.8 Cardiac arrest due to other underlying condition; N18.6 End stage renal disease; D63.1 Anemia in chronic kidney disease; D69.6 Thrombocytopenia, unspecified; E11.65 Type 2 diabetes mellitus with hyperglycemia; N30.10 Interstitial cystitis (chronic) without hematuria; E83.51 Hypocalcemia; E03.9 Hypothyroidism, unspecified; E83.59 Other disorders of calcium metabolism; I08.2 Rheumatic disorders of both aortic and tricuspid valves; E11.22 Type 2 diabetes mellitus with diabetic chronic kidney disease; Z20.822 Contact with and (suspected) exposure to COVID-19; J45.909 Unspecified asthma, uncomplicated; E11.51 Type 2 diabetes mellitus with diabetic peripheral angiopathy without gangrene; E86.9 Volume depletion, unspecified; Z88.0 Allergy status to penicillin; Z88.2 Allergy status to sulfonamides; Z88.8 Allergy status to other drugs, medicaments and biological substances; Z99.2 Dependence on renal dialysis; Z86.718 Personal history of other venous thrombosis and embolism; Z91.15 Patient's noncompliance with renal dialysis; Z79.899 Other long term (current) drug therapy; Z79.891 Long term (current) use of opiate analgesic; Z98.890 Other specified postprocedural states; Z79.01 Long term (current) use of anticoagulants; Z79.2 Long term (current) use of antibiotics
CPT/HCPCS: 0241U; 36415; 36556; 36600; 51701; 71045; 80053; 81001; 82330; 82803; 82947; 83735; 84145; 84443; 84484; 85025; 87086; 92950; 93005; 93010; 93926; 96374-59; 96375-59; 99285-25; A9270; C1751; J0456; J0696; J1610; J2270; J2405; J2597; J3475; J7030; J7040; J7042; J7050; J7799